=== PATIENT | male | born 1970 | race Caucasian/White ===

== ENCOUNTER 2016-07-31 17:06 | Emergency (ER) | payer BC, MEDICAID ==
[~2016-07-31] VITALS: Ht 167.6 cm; Wt 81.6 kg
[~2016-07-31 17:06] MED LIST: ACET-868 PO; ASCO500T8 PO; ASPI81TA2 PO; ATOR20TA PO; BISA10SU8 RC; CALC-108 PO; CHOL10002 PO; CLON0.3T PO; DOCU-25 PO; ESOM40CA PO; FERR1TAB44 PO; GABA-532 PO; HYDR-4077 PO; HYDR2TAB7 PO; IPRA3AMP IH; LABE200T PO; LEVE750T4 PO; LORA1TAB PO; MAG30ORA PO; MAGN400O4 PO; METH10TA2 PO; NITR0.4T SL; ONDA-25 PO; PHEN125O8 PO; THIA100T13 PO
[2016-07-31 17:30] LABS: BASOPHILS # (AUTO) 0.1 /CMM (0.0-0.2); BASOPHILS % (AUTO) 0.7 % (0.0-2.0); DIFF TOTAL % 100 %; EOSINOPHILS # (AUTO) 0.3 /CMM (0.0-0.7); EOSINOPHILS % (AUTO) 3.8 % (0.0-6.0); HEMATOCRIT 32 % (39-51); HEMOGLOBIN 10.6 g/dL (13.5-17.5); LYMPHOCYTES # (AUTO) 0.9 /CMM (0.8-4.8); LYMPHOCYTES % (AUTO) 10.6 % (20.0-44.0); MEAN CORPUSCULAR HEMOGLOBIN 32 PG (26.0-33.0); MEAN CORPUSCULAR HGB CONC 33 g/dl (31.0-36.0); MEAN CORPUSCULAR VOLUME 95 fL (80-96); MONOCYTES # (AUTO) 0.6 /CMM (0.1-1.30); MONOCYTES % (AUTO) 6.5 % (2.0-12.0); NEUTROPHILS % (AUTO) 78.4 % (43.0-81.0); PLATELET COUNT (AUTO) 193 /CMM (150-450); RED BLOOD CELL COUNT(AUTO) 3.36 MIL/uL (4.5-6.0); WHITE BLOOD COUNT (AUTO) 8.9 K/uL (4.3-11.0)
[2016-07-31] MEDS ORDERED: DILTIAZEM HCL 50 MG IV IV ONE ×2 (17:30→18:30)
[2016-07-31] MEDS ORDERED: NITROGLYCERIN 0.4 MG/TAB BOTTLE SL ONE (17:30)
[2016-07-31] MEDS ORDERED: ASPIRIN 81 MG TAB.CHEW PO ONE (17:30)
[2016-07-31] MEDS ORDERED: ONDANSETRON HCL/PF 4 MG/2 ML VIAL IVP ONE (17:30)
[2016-07-31] MEDS ORDERED: MORPHINE SULFATE INJ 2 MG/ML DISP.SYRIN IV ONE (17:30)
[2016-07-31] MEDS ORDERED: DILTIAZEM HCL 25 MG IV ONE ×2 (17:33→18:19)
[2016-07-31] MEDS ORDERED: NITROGLYCERIN 0.4 MG/TAB BOTTLE ONE (17:33)
[2016-07-31] MEDS ORDERED: ASPIRIN 81 MG TAB.CHEW ONE (17:33)
[2016-07-31] MEDS ORDERED: ONDANSETRON HCL/PF 4 MG/2 ML VIAL ONE (17:37)
[2016-07-31 17:41] LABS: CALCIUM, SERUM 8.2 mg/dL (8.5-10.1); CREATININE 4.6 mg/dL (0.6-1.3); POTASSIUM 4.3 mmol/L (3.5-5.1)
[2016-07-31 17:45] LABS: INR 0.97 (0.87-1.13); PROTHROMBIN TIME 10.2 SECS (9.5-12.7)
[2016-07-31 17:49] LABS: TROPONIN I 0.046 ng/mL (0.00-0.056)
[2016-07-31] MEDS ORDERED: HYDROMORPHONE 1 MG/1 ML DISP.SYRIN IV ONE (18:00)
[2016-07-31] MEDS ORDERED: IV SET PRIMARY 1 EA INFUS.SET MC ONE (18:03)
[2016-07-31] MEDS ORDERED: HYDROMORPHONE 1 MG/1 ML DISP.SYRIN ONE (18:03)
[2016-07-31] MEDS ORDERED: IV NS 0.9% 100 ML IV ONE (18:03)
[2016-07-31] MEDS ORDERED: DILTIAZEM HCL IV 125 MG in IV D5W 100 ML IV ONE (18:30)
[2016-07-31 19:21] VITALS: BP 136/84
== END 2016-07-31 19:22 | disposition left against medical advice (07) ==
LOC: ER 17:07
DX: I48.91 Unspecified atrial fibrillation (principal); R07.9 Chest pain, unspecified; I12.0 Hypertensive chronic kidney disease with stage 5 chronic kidney disease or end stage renal disease; N18.6 End stage renal disease; Z88.6 Allergy status to analgesic agent; Z99.2 Dependence on renal dialysis
CPT/HCPCS: 36415; 71010; 73030; 80048; 84484; 85025; 85730; 87081; 93005; 96374 ×2; 96375; 99285; A4606; J1170; J2405; J3490 ×2; J7030; Z7610

== ENCOUNTER 2016-09-02 08:40 | Emergency (ER) | payer BC, MEDICAID ==
[~2016-09-02] VITALS: Ht 165.1 cm; Wt 83.9 kg
[2016-09-02 09:06] LABS: BASOPHILS % (AUTO) 0.4 % (0.0-2.0); DIFF TOTAL % 100 %; EOSINOPHILS % (AUTO) 0.6 % (0.0-6.0); HEMATOCRIT 28 % (39-51); HEMOGLOBIN 9.3 g/dL (13.5-17.5); LYMPHOCYTES # (AUTO) 0.6 /CMM (0.8-4.8); LYMPHOCYTES % (AUTO) 9.8 % (20.0-44.0); MEAN CORPUSCULAR HEMOGLOBIN 31 PG (26.0-33.0); MEAN CORPUSCULAR HGB CONC 33 g/dl (31.0-36.0); MEAN CORPUSCULAR VOLUME 92 fL (80-96); MONOCYTES # (AUTO) 0.2 /CMM (0.1-1.30); MONOCYTES % (AUTO) 3.5 % (2.0-12.0); NEUTROPHILS # (AUTO) 5.6 /CMM (1.8-8.9); NEUTROPHILS % (AUTO) 85.7 % (43.0-81.0); PLATELET COUNT (AUTO) 181 /CMM (150-450); RED BLOOD CELL COUNT(AUTO) 3.02 MIL/uL (4.5-6.0); WHITE BLOOD COUNT (AUTO) 6.5 K/uL (4.3-11.0)
[2016-09-02 09:21] LABS: ALANINE AMINOTRANSFERASE 30 U/L (12-78); ALBUMIN 3.7 g/dL (3.4-5.0); ANION GAP 22 (5-14); ASPARTATE AMINOTRANSFERASE 7 U/L (15-37); BILIRUBIN,DIRECT 0.1 mg/dL (0.0-0.2); BILIRUBIN,TOTAL 0.3 mg/dL (0.2-1.0); CALCIUM, SERUM 8.6 mg/dL (8.5-10.1); CARBON DIOXIDE 20 mmol/L (21-32); CHLORIDE 98 mmol/L (98-107); GFR 5 mL/min (>60); GLUCOSE 160 mg/dL (74-106); INDIRECT BILIRUBIN 0.2 mg/dL (0.0-1.1); POTASSIUM 4.9 mmol/L (3.5-5.1); SODIUM SERUM 135 mmol/L (136-145); TOTAL PROTEIN, SERUM 7.8 g/dL (6.4-8.2)
[2016-09-02 09:23] LABS: CREATININE 11.7 mg/dL (0.6-1.3); UREA NITROGEN, BLOOD 110 mg/dL (7-18)
[2016-09-02 09:24] LABS: TROPONIN I < 0.017 ng/mL (0.00-0.056)
[2016-09-02 09:29] LABS: INR 0.98 (0.87-1.13); PROTHROMBIN TIME 10.6 SECS (9.5-12.7)
[2016-09-02] MEDS ORDERED: KETOROLAC TROMETHAMINE INJ 30 MG/ML VIAL IV ONE (10:30)
[2016-09-02 10:41] VITALS: BP 133/70
== END 2016-09-02 10:42 | disposition home or self-care (01) ==
LOC: ER 08:45
DX: S40.012A Contusion of left shoulder, initial encounter (principal); S09.90XA Unspecified injury of head, initial encounter; R07.9 Chest pain, unspecified; I12.0 Hypertensive chronic kidney disease with stage 5 chronic kidney disease or end stage renal disease; N18.6 End stage renal disease; Z88.6 Allergy status to analgesic agent; Z79.82 Long term (current) use of aspirin; W18.09XA Striking against other object with subsequent fall, initial encounter; Y93.89 Activity, other specified; Y92.89 Other specified places as the place of occurrence of the external cause; Y99.8 Other external cause status
CPT/HCPCS: 36415; 70450; 71010; 73030; 80048; 80076; 84484; 85025; 85730; 93005; 99285; A4606; Z7610

== ENCOUNTER 2016-09-04 03:22 | Inpatient (IN) | payer BC, MEDICAID ==
[~2016-09-04] VITALS: Ht 165.1 cm; Wt 102.1 kg
--- NOTE | 2016-09-04 03:29 | NUR ---
PT BIB RA WITH A C/O SOB AND LEFT SIDED RIB PAIN S/P FALL YESTERDAY. PT STATED THAT HE GOT UP TOO FAST AND FELL. PT IS AA&O X4. PT IS ON THE MONITOR AND CONTINOUS PULSE OX. PT IS A HD PT AND HAS NOT BE DIALYSIZED FOR 1 WK. PT STATED IT WAS BECAUSE THE FACILITY DID NOT HAVE THE RIGHT SUCTIONING MACHINE. PT HAS A FISTULA ON LUE. DR. VELIZ IS AT THE BEDSIDE. CRACKLES NOTED ON LEFT SIDE AND WHEEZES NOTED ON RT.
--- NOTE | 2016-09-04 03:30 | NUR ---
TRACH IS [facility] 6.0
--- NOTE | 2016-09-04 03:31 | NUR ---
SUCTIONING IN PROGRESS BY RT.
--- NOTE | 2016-09-04 03:35 | NUR ---
PT IS ON HD WED, WED, WEDNESDAY. PT HAS NOT HAD HD IN 1 WEEK.
--- NOTE | 2016-09-04 03:51 | NUR ---
PT HAS A FISTULA ON LUE. BRUIT AND TRILL PRESENT. PT HAS DENZEL CATH IN RU. IV ATTEMPT X2 DONE UNSUCCESSFULLY. SOUND EDITOR IS AT THE BEDSIDE. CXR IN PROGRESS AT THE BEDSIDE.
--- NOTE | 2016-09-04 04:15 | NUR ---
US GUIDED IV INSERTION BY ANGELICA DURÁN
[2016-09-04 04:26] LABS: BASOPHILS % (AUTO) 0.2 % (0.0-2.0); EOSINOPHILS # (AUTO) 0.2 /CMM (0.0-0.7); EOSINOPHILS % (AUTO) 1.8 % (0.0-6.0); HEMATOCRIT 32 % (39-51); HEMOGLOBIN 10.3 g/dL (13.5-17.5); LYMPHOCYTES # (AUTO) 1.1 /CMM (0.8-4.8); LYMPHOCYTES % (AUTO) 11.9 % (20.0-44.0); MEAN CORPUSCULAR HEMOGLOBIN 30 PG (26.0-33.0); MEAN CORPUSCULAR HGB CONC 33 g/dl (31.0-36.0); MEAN CORPUSCULAR VOLUME 92 fL (80-96); MONOCYTES # (AUTO) 0.6 /CMM (0.1-1.30); MONOCYTES % (AUTO) 6.9 % (2.0-12.0); NEUTROPHILS % (AUTO) 79.2 % (43.0-81.0); PLATELET COUNT (AUTO) 244 /CMM (150-450); RDW COEFFICIENT OF VARIATION 14.4 (11.5-15.0); RED BLOOD CELL COUNT(AUTO) 3.41 MIL/uL (4.5-6.0); WHITE BLOOD COUNT (AUTO) 8.9 K/uL (4.3-11.0)
[2016-09-04] MEDS ORDERED: MORPHINE SULFATE INJ 4 MG/ML DISP.SYRIN ONE (04:32)
[2016-09-04] MEDS ORDERED: ONDANSETRON HCL/PF 4 MG/2 ML VIAL ONE (04:33)
[2016-09-04] MEDS ORDERED: HYDROCODONE/APAP 5/325MG 1 EACH TABLET ONE (04:36)
[2016-09-04 04:45] LABS: TROPONIN I < 0.017 ng/mL (0.00-0.056)
[2016-09-04 04:49] LABS: LACTIC ACID 0.9 mmol/L (0.4-2.0)
[2016-09-04 04:52] LABS: ALANINE AMINOTRANSFERASE 31 U/L (12-78); ALBUMIN 3.9 g/dL (3.4-5.0); ALKALINE PHOSPHATASE 133 U/L (46-116); ASPARTATE AMINOTRANSFERASE 8 U/L (15-37); B-TYPE NATRIURETIC PEPTIDE 7573 PG/ML (0-125); BILIRUBIN,DIRECT 0.1 mg/dL (0.0-0.2); BILIRUBIN,TOTAL 0.3 mg/dL (0.2-1.0); CALCIUM, SERUM 8.2 mg/dL (8.5-10.1); CARBON DIOXIDE 20 mmol/L (21-32); CHLORIDE 92 mmol/L (98-107); GFR 4 mL/min (>60); GLUCOSE 112 mg/dL (74-106); SODIUM SERUM 128 mmol/L (136-145)
[2016-09-04 04:54] LABS: CREATININE 12.4 mg/dL (0.6-1.3); POTASSIUM 6.8 mmol/L (3.5-5.1); UREA NITROGEN, BLOOD 124 mg/dL (7-18)
[2016-09-04] MEDS ORDERED: PANT40TA4 PO (04:55)
[2016-09-04] MEDS ORDERED: PHEN50TA4 PO (04:55)
[2016-09-04] MEDS ORDERED: PHEN200C5 PO (04:55)
[2016-09-04] MEDS ORDERED: AMIO400T4 PO (04:55)
[2016-09-04] MEDS ORDERED: IPRA0.2S9 IH (04:55)
[2016-09-04] MEDS ORDERED: PHEN300C6 PO (04:55)
[2016-09-04] MEDS ORDERED: LIDO30AD10 TP (04:55)
[2016-09-04] MEDS ORDERED: RISP2TAB23 PO (04:55)
[2016-09-04] MEDS ORDERED: FOLI1TAB16 PO (04:55)
[2016-09-04] MEDS ORDERED: FLUT1DIS3 IH (04:55)
[2016-09-04] MEDS ORDERED: METO25TA6 PO (04:55)
[2016-09-04] MEDS ORDERED: AMLO5TAB4 PO (04:55)
[2016-09-04] MEDS ORDERED: PRED20TA PO (04:55)
[2016-09-04] MEDS ORDERED: SODIUM BICARBONATE SYR 50 MEQ/50 ML DISP.SYRIN ONE (04:56)
[2016-09-04] MEDS ORDERED: CALCIUM CHLORIDE 1,000 MG/10 ML DISP.SYRIN ONE (04:56)
[2016-09-04] MEDS ORDERED: ALBUTEROL FS 2.5 MG/3 ML VIAL.NEB NEB ONE (05:00)
[2016-09-04] MEDS ORDERED: HYDROCODONE/APAP 5/325MG 1 EACH TABLET PO ONE (05:00)
[2016-09-04] MEDS ORDERED: CALCIUM CHLORIDE 1,000 MG/10 ML DISP.SYRIN IV ONE (05:00)
[2016-09-04] MEDS ORDERED: INSULIN REGULAR, HUMAN 100 UNIT/ML 10 ML VIAL IV ONE (05:00)
[2016-09-04] MEDS ORDERED: DEXTROSE 50%-WATER 50 ML DISP.SYRIN IV ONE (05:00)
[2016-09-04] MEDS ORDERED: SODIUM BICARBONATE SYR 50 MEQ/50 ML DISP.SYRIN IV ONE (05:00)
[2016-09-04] MEDS ORDERED: DEXTROSE 50%-WATER 50 ML DISP.SYRIN ONE (05:07)
[2016-09-04] MEDS ORDERED: INSULIN REGULAR, HUMAN 100 UNIT/ML 10 ML VIAL ONE (05:08)
[2016-09-04] MEDS ORDERED: ALBUTEROL FS 2.5 MG/3 ML VIAL.NEB ONE (05:10)
--- NOTE | 2016-09-04 05:12 | NUR ---
WITNESSED LEEANNA SANCHES RN ADMINISTER 5 UNITS OF REGULAR INSULIN
[2016-09-04 05:16] LABS: APPEARANCE,URINE CLEAR (CLEAR); BILIRUBIN,URINE NEGATIVE (NEGATIVE); BLOOD, URINE NEGATIVE Ery/uL (NEGATIVE); COLOR,URINE YELLOW (YELLOW); KETONES,URINE NEGATIVE (NEGATIVE); LEUKOCYTE ESTERASE ,URINE NEGATIVE (NEGATIVE); NITRITE, URINE NEGATIVE (NEGATIVE); PH,URINE 5.5 (5.0-8.0); PROTEIN,URINE 1+ mg/dl (NEGATIVE); UGLUCOSE NEGATIVE (NEGATIVE); UROBILINOGEN,URINE 0.2 EU/dL (0.2)
[2016-09-04 05:24] LABS: ADD URINE CULTURE NO; BACTERIA,URINE None seen /HPF (None Seen); RBC,URINE 0-2 /HPF (0-2); SQUAMOUS EPITHELIAL CELL,UR Few /HPF (None Seen); WBC,URINE 0-2 /HPF (0-3)
--- NOTE | 2016-09-04 05:50 | NUR ---
PT DISCONNECTED HIMSELF FROM THE MONITOR AND WALKED INTO THE HALLWAY. PT'S CALL LIGHT WAS ON THE FLOOR. PT STATED: "I HAVE TO PEE". PT WANTS A URINAL. PT REC'D A URINAL AND HAD APPROX 200 ML YELLOW URINE. PT WAS RECONNTECTED TO THE MONITOR AND CONTINUOUS PULSE OX. PT WAS PLACED BACK ON 5L O2 VIA TRACH MASK AND REC'D WARM BLANKETS X2. SR UP X2 PRECAUTION.
[2016-09-04] MEDS ORDERED: LORAZEPAM 1 MG TABLET PO PRN (06:00)
[2016-09-04] MEDS ORDERED: Z GUARD REMEDY 2 OZ OINT TP PRN (06:00)
[2016-09-04] MEDS ORDERED: MAGNESIUM HYDROXIDE 30 ML UDC PO PRN ×2 (06:00)
[2016-09-04] MEDS ORDERED: ONDANSETRON HCL/PF 4 MG/2 ML VIAL IVP PRN (06:00)
[2016-09-04] MEDS ORDERED: NITROGLYCERIN 0.4 MG/TAB BOTTLE SL PRN (06:00)
[2016-09-04] MEDS ORDERED: HYDROCODONE/APAP 5/325MG 1 EACH TABLET PO PRN (06:00)
[2016-09-04] MEDS ORDERED: ACETAMINOPHEN 325 MG TABLET PO PRN ×2 (06:00)
[2016-09-04] MEDS ORDERED: Medication Not On Formulary EA (Ipratropium/Albuterol Sulfate (Duoneb 2.5-0.5 Mg/3 Ml So IH PRN (06:00)
[2016-09-04] MEDS ORDERED: BISACODYL SUPP (10 MG) 10 MG/SUPP.RECT SUPP.RECT RC PRN (06:00)
[2016-09-04] MEDS ORDERED: ZOLPIDEM TARTRATE 5 MG TABLET PO PRN (06:00)
[2016-09-04] MEDS ORDERED: MAG HYDROX/AL HYDROX/SIMETH 30 ML UDC PO PRN ×2 (06:00)
[2016-09-04 06:01] LABS: PROTHROMBIN TIME 10.7 SECS (9.5-12.7)
[2016-09-04] MEDS ORDERED: LEVE500T9 PO (06:05)
[2016-09-04] MEDS ORDERED: CALC668T PO (06:05)
--- NOTE | 2016-09-04 06:26 | NUR ---
PT APPEARS TO BE RESTING COMFORTABLY WITH NO S/S OF PAIN OR DISTRESS.
--- NOTE | 2016-09-04 06:30 | NUR ---
Ariana roach in ED - 09/04/[address] INGRAM IS AT THE BEDSIDE SPEAKING TO THE PT AND HER .
--- NOTE | 2016-09-04 07:22 | NUR ---
Patient discharged to home in stable condition. Written and verbal after care instructions given. Patient verbalizes understanding of instruction.IV removed. Catheter intact and site benign. Pressure and 4x4 applied to site. No bleeding noted. PT REC'D A COPY OF LABS AND CT FINDINGS. PT AMBULATED OUT WITH A STEADY GAIT. VSS
--- NOTE | 2016-09-04 07:30 | NUR ---
BED CALL PT GOING TO 320-1 TELEMETRY
--- NOTE | 2016-09-04 08:15 | NUR ---
GAVE REPORT TO ALESSIA DOMINGUEZMIXING HOUSE OPERATOR
--- NOTE | 2016-09-04 08:48 | NUR ---
PT TRANSFER VIA GURNEY VIA ACLS PROTOCOL WITH RT FOR TRACH MANAGEMENT. TRANSFER IN STABLE CONDITION TO ROOM 320-1
[2016-09-04] MEDS ORDERED: ASCORBIC ACID 500 MG TABLET PO SCH (09:00)
[2016-09-04] MEDS ORDERED: Medication Not On Formulary EA (Esomeprazole Mag Trihydrate (Nexium) 40 MG) PO SCH (09:00)
[2016-09-04] MEDS ORDERED: THIAMINE HCL 100 MG TABLET PO SCH (09:00)
[2016-09-04] MEDS ORDERED: AMIODARONE HCL 200 MG TABLET PO SCH (09:00)
[2016-09-04] MEDS ORDERED: CHOLECALCIFEROL 1,000 UNIT TABLET (VIT D3) PO SCH (09:00)
[2016-09-04] MEDS ORDERED: FLUTICASONE/SALMETEROL DISKUS IH SCH (09:00)
[2016-09-04] MEDS ORDERED: CALCIUM CARB 600MG /VIT D 1 EACH TABLET PO SCH (09:00)
[2016-09-04] MEDS ORDERED: risperiDONE 1 MG TABLET PO SCH (09:00)
[2016-09-04] MEDS ORDERED: ASPIRIN 81 MG TAB.CHEW PO SCH (09:00)
[2016-09-04] MEDS ORDERED: CALCIUM CARB 250MG /VITAMIN D 1 UDTAB PO SCH (09:00)
[2016-09-04] MEDS ORDERED: LIDOCAINE 5% (PATCH) 1 EA PATCH TP SCH (09:00)
[2016-09-04] MEDS ORDERED: CLONIDINE HCL 0.1 MG TABLET PO SCH (09:00)
[2016-09-04] MEDS ORDERED: PHENYTOIN 50 MG PO SCH (09:00)
[2016-09-04] MEDS ORDERED: PANTOPRAZOLE 40 MG TABLET.DR PO SCH (09:00)
[2016-09-04] MEDS ORDERED: LABETALOL HCL 200 MG TABLET PO SCH (09:00)
[2016-09-04] MEDS ORDERED: METHADONE HCL 10 MG TABLET PO SCH (09:00)
[2016-09-04] MEDS ORDERED: predniSONE 20 MG TABLET PO SCH (09:00)
[2016-09-04] MEDS ORDERED: ONDANSETRON 4 MG TAB.RAPDIS PO PRN (09:00)
[2016-09-04] MEDS ORDERED: PHENYTOIN SODIUM 200 MG PO SCH (09:00)
[2016-09-04] MEDS ORDERED: FOLIC ACID 1 MG TABLET PO SCH (09:00)
--- NOTE | 2016-09-04 09:00 | NUR ---
INTENSIVE CARE SPECIALIST NOTES ADMITTED THIS PATIENT FOR SOB, BY DR. LIAO, AAO X3, ON TRACH SHILEY #6 ON 5L O2 COOL AIR, NAD, NO SOB, RESPIRATION UNLABORED, C/O OF LEFT HIP AND RIB PAIN 8/10, WILL ADMINISTER PAIN MEDS ORDERED, TELEMETRY READS SR WITH BBB HR 61, AVF ON ALBINO THRILL PRESENT, DENZEL CATH ON RT UPPER CWM CDI DRESSING, FERNANDO G20 IVHL , FLUSHES WELL SITE CLEAR. REFUSE BODY CHECK, ON RENAL DIET, AMBULATES, UNIT ORIENTATION DONE AND USE OF CALL LIGHT. SAFETY MEASURES IN PLACE, BED ALARM ON, WILL CONT TO MONITOR.
[2016-09-04] MEDS: FERROUS SULFATE (325 MG) 325 MG/TAB TABLET PO SCH ×2 (09:22→17:06)
[2016-09-04] MEDS: DOCUSATE SODIUM 100 MG CAPSULE PO SCH ×2 (09:22→17:05)
[2016-09-04] MEDS: GABAPENTIN 100 MG CAPSULE PO SCH ×3 (09:23→17:06)
[2016-09-04] MEDS: METOPROLOL TARTRATE 25 MG TABLET PO SCH ×3 (09:28→17:06)
[2016-09-04] MEDS: AMLODIPINE BESYLATE 5 MG TABLET PO SCH ×2 (09:28→17:06)
[2016-09-04] MEDS: hydrALAZINE HCL 50 MG TABLET PO SCH ×3 (09:29→17:06)
[2016-09-04] MEDS: HYDROMORPHONE HCL 2 MG TABLET PO PRN ×2 (09:30→17:11)
--- NOTE | 2016-09-04 10:10 | NUR ---
RN NOTES PATIENT KEEPS ON REMOVING HIS INNER CANULA BUT ABLE TO PUT IT BACK BY HIMSELF. RESPIRATORY THERAPIST AWARE.
[2016-09-04 11:10] VITALS: BP 143/90
[2016-09-04] MEDS: IPRATROPIUM NEB FS 0.5 MG/2.5 ML AMPUL.NEB IH SCH ×2 (11:30→15:40)
[2016-09-04] MEDS: ALBUTEROL FS 2.5 MG/3 ML VIAL.NEB NEB SCH ×2 (11:30→15:40)
--- NOTE | 2016-09-04 11:30 | NUR ---
RT TX NOT GIVEN AT 1130. RT UNAWARE OF ORDERED BREATHING TX'S. RN NOTIFIED AND AWARE.
[2016-09-04] MEDS ORDERED: diphenhydrAMINE HCL 25 MG CAPSULE PO PRN (12:00)
--- NOTE | 2016-09-04 12:14 | NUR ---
RN NOTES DR. MARILOU OSORIO AND DR. Roselyn WEISS AWARE, PER R.T., HAS RESISTANCE TO TRACH EVERY SUCTIONING AND MIGHT REQUIRE TRACH CHANGE. FOR HD TODAY. PER MD, PATIENT CAN GO BACK TO SNF POST HD.
--- NOTE | 2016-09-04 12:32 | NUR ---
RN NOTES HD STARTED AT 1200, NO BP MED GIVEN
[2016-09-04] MEDS ORDERED: ALBUTEROL HALF STRENGTH 1.25 MG/3 ML VIAL.NEB NEB PRN (13:30)
[2016-09-04] MEDS ORDERED: IPRATROPIUM NEB FS 0.5 MG/2.5 ML AMPUL.NEB NEB PRN (13:30)
[2016-09-04] MEDS ORDERED: HYDROMORPHONE 1 MG/1 ML DISP.SYRIN IV PRN (14:00)
--- NOTE | 2016-09-04 14:42 | NUR ---
RN NOTES REPORT GIVEN TO MICHELLE AT HEART TO HEART [facility]. AMBULANCE RASPBERRY CHECKER TIME 1600.
--- NOTE | 2016-09-04 15:00 | NUR ---
RN NOTES HD COMPLETED WITH 3000 ML OUT.
[2016-09-04 16:00] VITALS: BP 123/81
--- NOTE | 2016-09-04 16:30 | NUR ---
RT PT IS AWAKE, ALERT AND VERBALLY RESPONSIVE. TRACH CHANGED TO SHILEY #6 UNCUFFED. MD AWARE. RN NOTIFIED AND AWARE. 2 RTS AT BEDSIDE. NO RESPIRATORY COMPLICATIONS NOTED. SpO2 97%, HR 86, RR 18. TRACH SECURED AND AIRWAY PATENT. AMBU BAG AT BEDSIDE. NO SOB OR SIGNS OF DISTRESS OBSERVED. WILL CONTINUE TO MONITOR THE PATIENT FOR ANY CHANGE OF CONDITION.
[2016-09-04 18:05] VITALS: BP 123/81
--- NOTE | 2016-09-04 18:08 | NUR ---
SUPERVISOR CALIBRATION NOTES PATIENT DISCHARGED TO HEART TO HEART [facility] FAC[facility] PER MD IN STABLE CONDITION. PROVIDED DC INSTRUCTIONS, MED RECON LIST AND HEALTH TEACHINGS. TO FOLLOW UP WITH PMD PER FACILITY PROTOCOL. FERNANDO IVHL REMOVED, NO BLEEDING, DRESSING IN PLACE. ALL BELONGINGS CHECKED AND RETURNED, ALL PAPER WORKS SIGNED. PATIENT PICKED UP BY 3 AMBULANCE PERSONNEL TO TRANSPORT PATIENT TO FACILITY.
[2016-09-04] MEDS ORDERED: LEVETIRACETAM (250 MG) 250 MG TABLET PO SCH (22:00)
[2016-09-04] MEDS ORDERED: PHENYTOIN SODIUM 600 MG PO SCH (22:00)
[2016-09-04] MEDS ORDERED: ATORVASTATIN 10 MG TABLET PO SCH (22:00)
[2016-09-04] MEDS ORDERED: PHENYTOIN PO SCH (22:00)
== END 2016-09-04 18:24 | DRG 640 ==
LOC: ER 03:25 → TELE 08:16
PROVIDERS: ADMIT Family Medicine; ATTEND Nurse Practitioner Acute Care
PROC: 5A1D00Z (ICD-10-PCS; principal; 2016-09-04)
DX: E87.5 Hyperkalemia (principal); N18.6 End stage renal disease; J96.11 Chronic respiratory failure with hypoxia; I69.354 Hemiplegia and hemiparesis following cerebral infarction affecting left non-dominant side; I13.2 Hypertensive heart and chronic kidney disease with heart failure and with stage 5 chronic kidney disease, or end stage renal disease; E66.01 Morbid (severe) obesity due to excess calories; G89.29 Other chronic pain; I48.91 Unspecified atrial fibrillation; F17.210 Nicotine dependence, cigarettes, uncomplicated; I50.9 Heart failure, unspecified; Z93.0 Tracheostomy status; Z99.2 Dependence on renal dialysis; G47.33 Obstructive sleep apnea (adult) (pediatric); F11.90 Opioid use, unspecified, uncomplicated; G40.909 Epilepsy, unspecified, not intractable, without status epilepticus; J44.9 Chronic obstructive pulmonary disease, unspecified
CPT/HCPCS: 31720; 36415; 71010-TC; 71100-TC; 80048-TC; 80076-TC; 80185-TC; 81000-TC; 83605-TC; 83880; 84484-TC; 85025-TC; 85730-TC; 87040-TC; 87081-TC; 94799-TC; A4606; A4623; A7526; J1815; J2270; J2405; J3490; Q0163; Z7610

== ENCOUNTER 2016-09-15 15:11 | Inpatient (IN) | payer BC, MEDICAID ==
[~2016-09-15] VITALS: Ht 167.6 cm; Wt 93.0 kg
[~2016-09-15 15:11] MED LIST changes: +AMIO400T4 PO; +AMLO5TAB4 PO; +CALC668T PO; +FLUT1DIS3 IH; +FOLI1TAB16 PO; +IPRA0.2S9 IH; +LEVE500T9 PO; +LIDO30AD10 TP; +METO25TA6 PO; +PANT40TA4 PO; +PHEN200C5 PO; +PHEN300C6 PO; +PHEN50TA4 PO; +PRED20TA PO; +RISP2TAB23 PO
[2016-09-15 16:46] LABS: INR 1.06 (0.87-1.13)
[2016-09-15 16:50] LABS: BASOPHILS # (AUTO) 0.1 /CMM (0.0-0.2); BASOPHILS % (AUTO) 0.6 % (0.0-2.0); EOSINOPHILS # (AUTO) 0.6 /CMM (0.0-0.7); EOSINOPHILS % (AUTO) 5.9 % (0.0-6.0); HEMATOCRIT 29 % (39-51); HEMOGLOBIN 9.4 g/dL (13.5-17.5); LYMPHOCYTES # (AUTO) 1.7 /CMM (0.8-4.8); LYMPHOCYTES % (AUTO) 16.4 % (20.0-44.0); MEAN CORPUSCULAR HEMOGLOBIN 31 PG (26.0-33.0); MEAN CORPUSCULAR HGB CONC 33 g/dl (31.0-36.0); MEAN CORPUSCULAR VOLUME 94 fL (80-96); MONOCYTES # (AUTO) 0.7 /CMM (0.1-1.30); MONOCYTES % (AUTO) 6.2 % (2.0-12.0); NEUTROPHILS # (AUTO) 7.5 /CMM (1.8-8.9); NEUTROPHILS % (AUTO) 70.9 % (43.0-81.0); PLATELET COUNT (AUTO) 167 /CMM (150-450); RDW COEFFICIENT OF VARIATION 15.3 (11.5-15.0); RED BLOOD CELL COUNT(AUTO) 3.06 MIL/uL (4.5-6.0); TROPONIN I 0.036 ng/mL (0.00-0.056); WHITE BLOOD COUNT (AUTO) 10.6 K/uL (4.3-11.0)
[2016-09-15 16:55] LABS: ALBUMIN 3.9 g/dL (3.4-5.0); BILIRUBIN,DIRECT 0.1 mg/dL (0.0-0.2); BILIRUBIN,TOTAL 0.4 mg/dL (0.2-1.0); CALCIUM, SERUM 9.1 mg/dL (8.5-10.1); TOTAL PROTEIN, SERUM 7.6 g/dL (6.4-8.2)
[2016-09-15 16:56] LABS: ABG BASE EXCESS -7.6 mmol/L; ABG OXYGEN SATURATION 93.6 % (92.0-98.5); ABG PH 7.314 (7.350-7.450); ABG PO2 81.7 mmHg (75.0-100.0); ABG TOTAL HEMOGLOBIN 10.1 G/dL (13.5-18.0); AaDO2 162.1 mmHg; COHb 0.6 % (0.5-1.5); MetHb 0.2 % (0.0-1.5); O2Hb 92.9 % (94.0-97.0); SITE, ABG Right Radial; VENT MODE, BG TRACH MASK
[2016-09-15 16:58] LABS: POTASSIUM 6.4 mmol/L (3.5-5.1)
[2016-09-15 16:59] LABS: CREATININE 10.6 mg/dL (0.6-1.3)
--- NOTE | 2016-09-15 17:02 | NUR ---
PT FROM [facility] TO [facility] [phone]
[2016-09-15 17:05] LABS: LACTIC ACID 0.9 mmol/L (0.4-2.0)
[2016-09-15] MEDS ORDERED: IPRA0.2S49 NEB (17:27)
[2016-09-15] MEDS ORDERED: HYDR-4076 PO (17:27)
[2016-09-15] MEDS ORDERED: CALC667C6 PO (17:27)
[2016-09-15] MEDS ORDERED: HYDR-552 PO (17:27)
[2016-09-15] MEDS ORDERED: ZOLP5TAB7 PO (17:27)
[2016-09-15] MEDS ORDERED: TRAM50TA2 PO (17:27)
[2016-09-15] MEDS ORDERED: SENN8.6T6 PO (17:27)
[2016-09-15] MEDS ORDERED: ACID1TAB4 PO (17:27)
[2016-09-15] MEDS ORDERED: ALBU2.5V38 NEB (17:27)
[2016-09-15] MEDS ORDERED: FUROSEMIDE 40 MG/4 ML VIAL IV ONE (17:30)
[2016-09-15] MEDS ORDERED: NITROGLYCERIN PACKET 1 GM PACKET ONE (17:35)
[2016-09-15] MEDS ORDERED: ALBUTEROL FS 2.5 MG/3 ML VIAL.NEB ONE (17:38)
--- NOTE | 2016-09-15 17:57 | NUR ---
PTS PRIMARY IS DR HOUSE
[2016-09-15] MEDS ORDERED: NITROGLYCERIN PACKET 1 GM PACKET TD ONE (18:00)
[2016-09-15] MEDS ORDERED: ALBUTEROL FS 2.5 MG/3 ML VIAL.NEB CONTNEB ONE (18:00)
[2016-09-15] MEDS ORDERED: FUROSEMIDE 40 MG/4 ML VIAL ONE (18:02)
--- NOTE | 2016-09-15 18:49 | NUR ---
CALLED NURSING SUP. FOR DENI BED
--- NOTE | 2016-09-15 19:02 | NUR ---
PAGED SHELF STOCKER FOR [facility] DR TALON BRYANT
[2016-09-15] MEDS ORDERED: HYDROMORPHONE 1 MG/1 ML DISP.SYRIN ONE (19:04)
[2016-09-15] MEDS ORDERED: HYDROMORPHONE 1 MG/1 ML DISP.SYRIN IV ONE (19:30)
[2016-09-15] MEDS ORDERED: ZOLPIDEM TARTRATE 5 MG TABLET PO PRN (19:30)
[2016-09-15] MEDS ORDERED: ACETAMINOPHEN 325 MG TABLET PO PRN (19:30)
[2016-09-15] MEDS ORDERED: MAG HYDROX/AL HYDROX/SIMETH 30 ML UDC PO PRN (19:30)
[2016-09-15] MEDS ORDERED: ONDANSETRON HCL/PF 4 MG/2 ML VIAL IVP PRN (19:30)
[2016-09-15] MEDS ORDERED: MAGNESIUM HYDROXIDE 30 ML UDC PO PRN (19:30)
--- NOTE | 2016-09-15 19:42 | NUR ---
INFORMED NURSING BED WILL BE TELE INSTEAD OF DENI
[2016-09-15 20:05] VITALS: BP 140/93
[2016-09-15] MEDS ORDERED: SODIUM POLYSTYRENE SULFONATE 15 G/60 ML BOTTLE PO ONE (20:30)
[2016-09-15] MEDS ORDERED: TRAMADOL HCL 50 MG TABLET PO PRN (20:30)
[2016-09-15] MEDS ORDERED: LORAZEPAM 1 MG TABLET PO PRN (20:30)
[2016-09-15] MEDS ORDERED: IPRATROPIUM NEB FS 0.5 MG/2.5 ML AMPUL.NEB NEB PRN (20:30)
[2016-09-15] MEDS ORDERED: CHOLECALCIFEROL 1,000 UNIT TABLET (VIT D3) PO SCH (21:00)
[2016-09-15] MEDS ORDERED: ACIDOPHILUS/BULGARICUS 1 EACH TAB.CHEW PO SCH (21:00)
--- NOTE | 2016-09-15 21:09 | NUR ---
MEDICAL OFFICE SUPERVISOR NOTE ADMITTED 46 YEARS OLD MALE PT FROM ER WITH THE DX OF ACUTE RESP FAILURE, ESRD BY DR BRYANT. PT IS WITH SOB AND ON O2 15 L VIA MASK ON TRACH. O2 SAT 98%. KEPT HOB ELEVATED. H/L IN RT INDEX FINGER #24 G INTACT AND PATENT. DENZEL CATH ON RCW INTACT. ALSO OLD AV SHUNT IN ALBINO. SKIN ASSESSMENT DONE, PICTURES TAKEN AND PLACE THEM IN THE CHART. ORIENTED THE PT TO HIS ROOM. ON TELE SR WITH 1ST DEGREE AV BLOCK, BBB, T WAVE ELEVATED HR 70. BED BATH GIVEN TO THE PT. ALL NEEDS ATTENDED. SIDE RAILS UP X 3 AND CALL LIGHT WITHIN REACH. BED ALARM ON. VSS. CONTINUE TO MONITOR HIM.
[2016-09-15] MEDS: FLUTICASONE/SALMETEROL DISKUS IH SCH (21:24)
[2016-09-15] MEDS: hydrALAZINE HCL 25 MG TABLET PO SCH (21:24)
[2016-09-15] MEDS ORDERED: CALCIUM ACETATE 667 MG TABLET PO SCH (21:30)
--- NOTE | 2016-09-15 21:30 | NUR ---
ELDER ASSISTANT NOTE PT IS CONFUSED KEPT ON GETTING OUT OF BED. KEPT BED ALARM ON.
[2016-09-15] MEDS ORDERED: SENNOSIDES 8.6 MG TABLET PO SCH (22:00)
[2016-09-15] MEDS ORDERED: LEVETIRACETAM (250 MG) 250 MG TABLET PO SCH (22:00)
[2016-09-15] MEDS ORDERED: PHENYTOIN EXTENDED RELEASE 100 MG CAPSULE PO SCH (22:00)
[2016-09-16] VITALS: BP 157/68
--- NOTE | 2016-09-16 00:20 | NUR ---
RN NOTES PATIENT NOTED WITH PERIODS OF DISORIENTATION, ATTEMPTING MULTIPLE TIMES TO GET OUT OF BED. BED ALARM INEFFECTIVE, PATIENT REMAINS HIGH FALL RISK. DR BRYANT NOTIFIED, WITH ORDER FOR 1:1 SITTER. BUSH HOG OPERATOR GUMARO NOTIFIED REGARDING 1:1 SITTER ORDER. WILL CONTINUE TO CLOSELY MONITOR THE PATIENT AND MAINTAIN SAFETY
[2016-09-16] MEDS: HYDROCODONE/APAP 5/325MG 1 EACH TABLET PO PRN (00:46)
--- NOTE | 2016-09-16 00:50 | NUR ---
TIN TIE MACHINE OPERATOR AUTOMATIC NOTE PT KEPT ON TRYING TO GET OUT OF BED, UNABLE TO FOLLOW SAFETY DIRECTION, BECOME VERY ANXIOUS AND AGITATED. ALSO C/O PAIN IN BILATERAL KNEES. NORCO 1 TAB PO GIVEN FOR PAIN 610 AND ATIVAN 1 MG PO GIVEN FOR ANXIETY. CONTINUE TO MONITOR HIM.
[2016-09-16] MEDS: ALBUTEROL FS 2.5 MG/3 ML VIAL.NEB NEB SCH ×4 (01:02→19:44)
[2016-09-16] MEDS: IPRATROPIUM NEB FS 0.5 MG/2.5 ML AMPUL.NEB NEB SCH ×4 (01:02→19:44)
--- NOTE | 2016-09-16 01:05 | NUR ---
SCHOOL OCCUPATIONAL THERAPIST NOTE MATT CHAMPAGNE CAME TO BE SITTER.
[2016-09-16] MEDS ORDERED: ALBUTEROL FS 2.5 MG/3 ML VIAL.NEB NEB PRN (01:30)
[2016-09-16 04:00] VITALS: BP 151/74
[2016-09-16] MEDS: hydrALAZINE HCL 25 MG TABLET PO SCH (05:18)
--- NOTE | 2016-09-16 06:40 | NUR ---
CRYPTOLOGIC TECHNICIAN TECHNICAL NOTE PT IN BED AWAKE. NO DISTRESS OR DISCOMFORT NOTED. DENIES PAIN. IVF INFUSING WELL, ON TELE SR WITH 1 ST DEGREE AV BLOCK, BBB, TWAVE ELEVATED HR 80. SITTER AT BED SIDE. MDLINE FERNANDO #18 G AND H/L RT INDEX FINGER #24 G INTACT AND PATENT. SIDE RAILS UP X 2 AND CALL LIGHT WITHIN REACH. WILL ENDORSE TO DAY SHIFT NURSE FOR CONTINUE TO CARE.
--- NOTE | 2016-09-16 06:50 | NUR ---
RESEARCH DEVELOPMENT MANAGER NOTE PT GRABBED THE TRACH COLLAR AND ALMOST PULLED THE CUFFLES TRACH SHIELY #6 OUT. SITTER JUMPED TO HOLD HIS HAND. WENT TO ASSIST THE SITTER AND HOLD TH PT'S HAND. INSERTED SHIELY #6 CUFFLES TRACH. PT WAS DE SAT 80%. READJUSTED HOB, PT IS GETTING 15L O2 . RT ALSO AT BED SIDE. GIVING B TX. PT CALM DOWN AND SAT WENT UP TO 90%. ENDORSE TO DAY SHIFT NURSE TO FOLLOW UP.
--- NOTE | 2016-09-16 07:20 | NUR ---
RN INITIAL NOTES: Rec'd pt on bed, HOB elevated, A&Ox3, restless & agitated. Pt on trache mask at 15 lpm, saturating at 92%, noted to have , tachypneic. RT on bedside. ABG done STAT, (as per RT, result is metabolic acidosis). Suctioning done. On telemonitor, SR w/ 1 deg AV Block, BBB, HR at 95. Pt has R CW Sarmad cath for HD, C/D/I. Has FERNANDO midline & R index finger G24, SL, flushed, patent, C/D/I, no signs of infection/ infiltration noted. CL placed w/in reached, Bed kept low & in locked position. Will continue to monitor.
[2016-09-16] MEDS ORDERED: PANTOPRAZOLE 40 MG TABLET.DR PO SCH (07:30)
[2016-09-16 07:37] LABS: ABG BASE EXCESS -9.9 mmol/L; ABG OXYGEN SATURATION 92.3 % (92.0-98.5); ABG PCO2 33.9 mmHg (35.0-45.0); ABG PH 7.286 (7.350-7.450); ABG PO2 77.1 mmHg (75.0-100.0); ABG TOTAL HEMOGLOBIN 9.8 G/dL (13.5-18.0); AaDO2 313.4 mmHg; MetHb 0.9 % (0.0-1.5); O2Hb 90.5 % (94.0-97.0); SITE, ABG Right Radial; VENT MODE, BG 60% COOL AERO
--- NOTE | 2016-09-16 07:45 | NUR ---
RN NOTES: Pt was placed on MV c/o Daina, RT w/ ff settings: Shiley 6, AC 12, TV 550, FIO2 50%, PEEP 0.
--- NOTE | 2016-09-16 07:54 | NUR ---
NOTIFIED DR. HILTON REGARDING ABG RESULTS AND PT. HAVING RESPIRATORY DISTRESS,WILL PLACED ON VENT POST TRACH CHANGE.DR. GONCALVES NOTIFIED ALSO FOR MEDS TO CALM DOWN PT. AWAITS FOR RESPONSE.
[2016-09-16 08:00] VITALS: BP 165/93
--- NOTE | 2016-09-16 08:00 | NUR ---
RN NOTES: Pt started on HD, c/o ANGELICA Suarez.
--- NOTE | 2016-09-16 08:10 | NUR ---
LATE ENTRY: RT NOTE RECEIVED PATIENT WITH #6 SHILEY CUFFLESS TRACH WITHOUT INNER CANNULA IN SEVERE DISTRESS. RR=28-30 AND SP02 86% ON 40% COOL AEROSOL VIA TRACH COLLAR. PATIENT'S FIO2 WAS INCREASE TO 60% AND MAINTAINING CN89=74-87%. INLINE TREATMENT DONE. ABG DONE AND REPORTED TO CHARGE NURSE (ANA). PATIENT'S TRACH WAS CHANGED TO #6 SHILEY CUFFED TRACH AND PLACED ON MECHANICAL VENT PER MD ORDER'S. NO BLEEDING NOTED. MEMS INTEGRATION ENGINEER DONE. SETTINGS PER MD ORDER. SUCTIONED AND LAVAGED THICK HORTON SECRETIONS. ALARMS SET AND AUDIBLE. VENT PLUGGED INTO RED OUTLET. AMBU BAG AT [facility].
[2016-09-16 08:37] LABS: BASOPHILS % (AUTO) 0.3 % (0.0-2.0); EOSINOPHILS # (AUTO) 0.1 /CMM (0.0-0.7); HEMATOCRIT 30 % (39-51); HEMOGLOBIN 9.9 g/dL (13.5-17.5); LYMPHOCYTES # (AUTO) 0.8 /CMM (0.8-4.8); LYMPHOCYTES % (AUTO) 5.5 % (20.0-44.0); MEAN CORPUSCULAR HEMOGLOBIN 31 PG (26.0-33.0); MEAN CORPUSCULAR HGB CONC 33 g/dl (31.0-36.0); MEAN CORPUSCULAR VOLUME 93 fL (80-96); MONOCYTES # (AUTO) 0.9 /CMM (0.1-1.30); MONOCYTES % (AUTO) 6.4 % (2.0-12.0); NEUTROPHILS # (AUTO) 12.4 /CMM (1.8-8.9); NEUTROPHILS % (AUTO) 86.8 % (43.0-81.0); PLATELET COUNT (AUTO) 166 /CMM (150-450); RDW COEFFICIENT OF VARIATION 15.7 (11.5-15.0); RED BLOOD CELL COUNT(AUTO) 3.23 MIL/uL (4.5-6.0); WHITE BLOOD COUNT (AUTO) 14.3 K/uL (4.3-11.0)
[2016-09-16 08:43] LABS: ALBUMIN 4.1 g/dL (3.4-5.0); BILIRUBIN,TOTAL 0.4 mg/dL (0.2-1.0); CALCIUM, SERUM 8.4 mg/dL (8.5-10.1); MAGNESIUM 2.5 mg/dL (1.8-2.4); POTASSIUM 5.3 mmol/L (3.5-5.1); TOTAL PROTEIN, SERUM 8.1 g/dL (6.4-8.2)
[2016-09-16 08:46] LABS: CREATININE 11.6 mg/dL (0.6-1.3)
[2016-09-16] MEDS: FLUTICASONE/SALMETEROL DISKUS IH SCH ×2 (09:00→21:03)
[2016-09-16] MEDS ORDERED: AMIODARONE HCL 200 MG TABLET PO SCH (09:00)
[2016-09-16] MEDS ORDERED: THIAMINE HCL 100 MG TABLET PO SCH (09:00)
[2016-09-16] MEDS ORDERED: METOPROLOL TARTRATE 25 MG TABLET PO SCH (09:00)
[2016-09-16] MEDS ORDERED: FERROUS SULFATE (325 MG) 325 MG/TAB TABLET PO SCH (09:00)
[2016-09-16] MEDS ORDERED: AMLODIPINE BESYLATE 5 MG TABLET PO SCH (09:00)
[2016-09-16] MEDS ORDERED: FOLIC ACID 1 MG TABLET PO SCH (09:00)
[2016-09-16] MEDS ORDERED: PHENYTOIN EXTENDED RELEASE 100 MG CAPSULE PO SCH (09:00)
[2016-09-16] MEDS ORDERED: LEVETIRACETAM (250 MG) 250 MG TABLET PO SCH (09:00)
[2016-09-16] MEDS ORDERED: ASPIRIN 81 MG TAB.CHEW PO SCH (09:00)
--- NOTE | 2016-09-16 09:00 | NUR ---
RN NOTES: Pt was seen & examined by Dr. Rodriguez w/ orders & carried out. Dr. Rodriguez also talked to Dr. Whitt re: pt current status.
[2016-09-16 09:12] LABS: PHOSPHORUS 9.5 mg/dL (2.5-4.9)
[2016-09-16] MEDS: FUROSEMIDE 40 MG/4 ML VIAL IV SCH (09:33)
[2016-09-16 09:57] LABS: THYROID STIMULATING HORMONE 2.727 uIU/mL (0.358-3.74); TROPONIN I 0.029 ng/mL (0.00-0.056)
--- NOTE | 2016-09-16 10:30 | NUR ---
RN NOTES: Pt was seen & examined by Dr. Escobedo w/ verbal orders made & carried out. Ordered to hold PO meds & shift pt's Dilantin, Amiodarone, Lopressor, & Protonix to IV. Informed him that pt had episode of nausea & vomiting, Zofran IV was given, ordered to do KUB stat.
[2016-09-16] MEDS: diphenhydrAMINE HCL 50 MG/ML VIAL IV PRN ×2 (11:11→18:03)
[2016-09-16] MEDS: HYDROMORPHONE 1 MG/1 ML DISP.SYRIN IV PRN ×2 (11:11→17:52)
[2016-09-16 12:00] VITALS: BP 128/59
[2016-09-16] MEDS: PANTOPRAZOLE 40 MG VIAL IV SCH (12:44)
[2016-09-16] MEDS: METOPROLOL TARTRATE INJ 5 MG/5 ML AMPUL IVP SCH ×2 (13:00→21:00)
[2016-09-16] MEDS: Z GUARD REMEDY 2 OZ OINT TP PRN (14:53)
[2016-09-16 16:00] VITALS: BP 122/77
--- NOTE | 2016-09-16 19:13 | NUR ---
RN CLOSING NOTES: Pt A&Ox3, not in distress, tolerated prescribed MV settings, saturating at 100%. Suctioned secretions. Pt NPO for now. Pt's R CW Sarmad cath for HD, C/D/I. Pt's FERNANDO midline & R index finger G24, SL, flushed, patent, C/D/I, no signs of infection/ infiltration noted. Instructed pt not to pull his trache, verbalized understanding. Needs attended. CL placed w/in reached, Bed kept low & in locked position. Isolation prec observed. Will endorse to PM RN for AGATHA.
[2016-09-16] MEDS ORDERED: IV NS 0.9% 250 ML IV ONE (19:53)
[2016-09-16] MEDS ORDERED: IV SET PRIMARY PUMP SET 1 EA INFUS.SET MC ONE (19:53)
[2016-09-16] MEDS ORDERED: SECONDARY IV SET 1 EA INFUS.SET MC ONE (19:53)
[2016-09-16 20:00] VITALS: BP 118/73
[2016-09-16] MEDS: D5W IV SCH (20:15)
[2016-09-16] MEDS: AMIODARONE IV SCH (20:15)
[2016-09-16] MEDS ORDERED: ATORVASTATIN 10 MG TABLET PO SCH (22:00)
[2016-09-16] MEDS ORDERED: PHENYTOIN SODIUM IV 50 MG/ML VIAL IV SCH (22:00)
[2016-09-17] VITALS: BP 103/66
[2016-09-17] MEDS: diphenhydrAMINE HCL 50 MG/ML VIAL IV PRN ×4 (00:04→19:55)
[2016-09-17] MEDS: HYDROMORPHONE 1 MG/1 ML DISP.SYRIN IV PRN ×4 (00:05→19:59)
[2016-09-17] MEDS: ALBUTEROL FS 2.5 MG/3 ML VIAL.NEB NEB SCH ×4 (01:38→20:17)
[2016-09-17] MEDS: IPRATROPIUM NEB FS 0.5 MG/2.5 ML AMPUL.NEB NEB SCH ×4 (01:39→20:17)
[2016-09-17 04:00] VITALS: BP 107/68
[2016-09-17] MEDS: METOPROLOL TARTRATE INJ 5 MG/5 ML AMPUL IVP SCH ×2 (04:23→12:40)
--- NOTE | 2016-09-17 07:18 | NUR ---
TELE-TD/PLACEMENT INTERVIEWER REPORT TO PATSY DOMINGUEZ FOR CONT OF CARE.
--- NOTE | 2016-09-17 07:30 | NUR ---
RN INITIAL NOTES RECEIVED PT IN BED, AWAKE, PT IS ABLE TO MAKE NEEDS KNOWN, PT IS ON [facility] VENT SHILEY #6 AC 12 TV 550 FIO2 40% PEEP 0, SATING WELL, NO S/S OF RESP. DISTRESS OR SOB AT THIS TIME, PT IS ON TELE MONITOR SHOWING SR W/BBB @ 64 BPM, NO C/O FO CHEST PAIN OR DISCOMFORT AT THIS TIME, PT IS NOTED WITH MULTIPLE SKIN ISSUES, PT HAS FERNANDO MIDLINE ,RUNNING TKO, R INDEX FINGER, SL, C/D/I/PATENT, FLUSHING WELL, NO S/S OF INFECTION/ INFILTRATION NOTED AT THIS TIME, RCW HD CATH, DRESSING IS INTACT, CLEAN AND DRY, ISOLATION PRECAUTIONS OBSERVED AT ALL TIMES, SITTER AT BEDSIDE, ALL SAFETY MEASURES IN PLACE AT ALL TIMES, CALL LIGHT WITHIN EASY REACH, WILL MONITOR PT CLOSELY FOR CHANGES.
--- NOTE | 2016-09-17 07:50 | NUR ---
RN NOTES PT PUT ON CPAP, SATING WELL, NO S/S OF RESP.DISTRESS OR SOB NOTED AT THIS TIME, PT IS RESTING COMFORTABLY ,WILL MONITOR CLOSELY
[2016-09-17 08:00] VITALS: BP 116/71
[2016-09-17] MEDS: FUROSEMIDE 40 MG/4 ML VIAL IV SCH (08:29)
[2016-09-17] MEDS: FLUTICASONE/SALMETEROL DISKUS IH SCH ×2 (08:29→21:14)
[2016-09-17] MEDS: AMIODARONE IV SCH (08:30)
[2016-09-17] MEDS: D5W IV SCH (08:30)
[2016-09-17] MEDS: Z GUARD REMEDY 2 OZ OINT TP PRN (08:31)
[2016-09-17 08:32] LABS: BASOPHILS # (AUTO) 0.1 /CMM (0.0-0.2); BASOPHILS % (AUTO) 0.8 % (0.0-2.0); EOSINOPHILS # (AUTO) 0.4 /CMM (0.0-0.7); EOSINOPHILS % (AUTO) 5.8 % (0.0-6.0); HEMATOCRIT 24 % (39-51); HEMOGLOBIN 8.1 g/dL (13.5-17.5); LYMPHOCYTES # (AUTO) 1.1 /CMM (0.8-4.8); LYMPHOCYTES % (AUTO) 14.9 % (20.0-44.0); MEAN CORPUSCULAR HEMOGLOBIN 31 PG (26.0-33.0); MEAN CORPUSCULAR HGB CONC 34 g/dl (31.0-36.0); MEAN CORPUSCULAR VOLUME 92 fL (80-96); MONOCYTES # (AUTO) 0.7 /CMM (0.1-1.30); MONOCYTES % (AUTO) 9.7 % (2.0-12.0); NEUTROPHILS # (AUTO) 4.8 /CMM (1.8-8.9); NEUTROPHILS % (AUTO) 68.8 % (43.0-81.0); PLATELET COUNT (AUTO) 128 /CMM (150-450); RDW COEFFICIENT OF VARIATION 15.4 (11.5-15.0); RED BLOOD CELL COUNT(AUTO) 2.63 MIL/uL (4.5-6.0)
[2016-09-17 08:37] LABS: ALBUMIN 3.4 g/dL (3.4-5.0); BILIRUBIN,TOTAL 0.6 mg/dL (0.2-1.0); CALCIUM, SERUM 8.2 mg/dL (8.5-10.1); POTASSIUM 3.7 mmol/L (3.5-5.1)
--- NOTE | 2016-09-17 09:00 | NUR ---
RN NOTES PT WAS PLACED ON COOL AEROSOL, TOLERATING WELL, NO S/S OF RESP.DISTRESS OR SOB NOTED, SATING 100%, WILL MONITOR CLOSELY FOR CHANGES
--- NOTE | 2016-09-17 09:03 | NUR ---
WOUND CARE CONSULT: PATIENT SEEN AND SKIN ASSESSMENT DONE. TRACH DEPENDENT PATIENT, SITTER AT BEDSIDE DUE TO BEING COMBATIVE LAST NIGHT ACCORDING TO SITTER AND NURSE. PATIENT ABLE TO TURN AND REPOSITION HOWEVER NEEDS PROMPTING, ANURIC AND CONTINENT OF STOOLS ACCORDING TO NURSING STAFF, ANDI Peck. SEE TODAY'S SKIN ASSESSMENT IN PCS ALONG WITH RECOMMENDATIONS DISCUSSED WITH NURSING STAFF INCLUDING MOISTURE PROTECTION PRN AND PROMPT IN TURNING/REPOSITIONING ORDERED. MD IN AGREEMENT WITH PLAN OF CARE. Addendum: 09/17/16 at 0907 by NUNU CLIFFORD WNDNU Amended: Links added.
[2016-09-17 09:04] LABS: ABG BASE EXCESS -0.7 mmol/L; ABG OXYGEN SATURATION 97.5 % (92.0-98.5); ABG PCO2 46.3 mmHg (35.0-45.0); ABG PO2 138.7 mmHg (75.0-100.0); ABG TOTAL HEMOGLOBIN 8.5 G/dL (13.5-18.0); AaDO2 93.3 mmHg; COHb 1.2 % (0.5-1.5); MetHb 0.9 % (0.0-1.5); O2Hb 95.5 % (94.0-97.0); PEEP,BG 5 cm H2O; SITE, ABG Right Radial; VENT MODE, BG CPAP PS12
[2016-09-17 09:08] LABS: CREATININE 9.9 mg/dL (0.6-1.3)
--- NOTE | 2016-09-17 09:20 | NUR ---
RN NOTES PT IS RECEIVING HD AT THIS TIME
[2016-09-17 12:00] VITALS: BP 138/91
--- NOTE | 2016-09-17 12:30 | NUR ---
RN NOTES ANDRY COMPLETED 2.1L OUT
[2016-09-17] MEDS: PANTOPRAZOLE 40 MG VIAL IV SCH (12:39)
[2016-09-17] MEDS: MUPIROCIN OINT 2% 22 GM TUBE SCH ×2 (12:40→21:16)
[2016-09-17] MEDS: PHENYTOIN SODIUM IV 50 MG/ML VIAL IV SCH ×2 (12:40→21:14)
[2016-09-17 16:00] VITALS: BP 126/79
[2016-09-17] MEDS: HYDROCODONE/APAP 5/325MG 1 EACH TABLET PO PRN (17:58)
[2016-09-17] MEDS ORDERED: AMIODARONE HCL 200 MG TABLET PO ONE (18:00)
--- NOTE | 2016-09-17 19:03 | NUR ---
RN CLOSING NOTES PT REMAINED STABLE DURING SHIFT, ALL MD ORDERS CARRIED OUT, ALL MEDICATIONS GIVEN, IV REMAINS C/D/I/PATENT, ISOLATIONS OBSERVED AT ALL TIMES, PT KEPT CLEAN AND DRY, ALL TREATMENTS CARRIED OUT, ALL SAFETY MEASURES IN PLACE AT ALL TIMES, REPORT WILL BE GIVEN TO PM RN FOR AGATHA
[2016-09-17 20:00] VITALS: BP_SYST 140; BP_DIAS 75; BP_DIAS 76
--- NOTE | 2016-09-17 20:00 | NUR ---
DENI NOTES RECEIVED PT ON COOL AEROSOL VIA TRACH SPO2 100% ON 35% FI02.MEDICATED EARLIER FOR C/LT KNEE PAIN AND CHEST WALL PAIN 01/28.SITTER AT BEDSIDE.
[2016-09-17] MEDS: METOPROLOL TARTRATE 25 MG TABLET PO SCH (21:15)
[2016-09-18] VITALS: BP 111/63
[2016-09-18] MEDS: diphenhydrAMINE HCL 50 MG/ML VIAL IV PRN ×3 (01:43→14:13)
[2016-09-18] MEDS: HYDROMORPHONE 1 MG/1 ML DISP.SYRIN IV PRN ×3 (01:43→14:13)
[2016-09-18] MEDS ORDERED: IV NS 0.9% 250 ML IV ONE (01:48)
[2016-09-18] MEDS: IPRATROPIUM NEB FS 0.5 MG/2.5 ML AMPUL.NEB NEB SCH ×3 (01:50→12:59)
[2016-09-18] MEDS: ALBUTEROL FS 2.5 MG/3 ML VIAL.NEB NEB SCH ×3 (01:50→12:59)
[2016-09-18] MEDS ORDERED: IV NS 0.9% 250 ML IV PRN (02:00)
[2016-09-18 04:00] VITALS: BP 115/79
[2016-09-18] MEDS: PHENYTOIN SODIUM IV 50 MG/ML VIAL IV SCH ×2 (04:40→12:56)
--- NOTE | 2016-09-18 06:14 | NUR ---
DENI NOTES STABLE VITAL SIGNS.COOL AEROSOL VIA TRACH 40% W/O2 SAT 96-100%.REFUSED TO HAVE SHILEY CHANGED.DRAIN SPONGE CHANGED.
[2016-09-18 07:20] LABS: BASOPHILS % (AUTO) 0.3 % (0.0-2.0); EOSINOPHILS # (AUTO) 0.2 /CMM (0.0-0.7); EOSINOPHILS % (AUTO) 2.1 % (0.0-6.0); HEMATOCRIT 27 % (39-51); HEMOGLOBIN 8.9 g/dL (13.5-17.5); LYMPHOCYTES # (AUTO) 1.3 /CMM (0.8-4.8); LYMPHOCYTES % (AUTO) 16.9 % (20.0-44.0); MEAN CORPUSCULAR HEMOGLOBIN 31 PG (26.0-33.0); MEAN CORPUSCULAR HGB CONC 33 g/dl (31.0-36.0); MEAN CORPUSCULAR VOLUME 93 fL (80-96); MONOCYTES # (AUTO) 0.6 /CMM (0.1-1.30); MONOCYTES % (AUTO) 7.9 % (2.0-12.0); NEUTROPHILS # (AUTO) 5.5 /CMM (1.8-8.9); NEUTROPHILS % (AUTO) 72.8 % (43.0-81.0); PLATELET COUNT (AUTO) 162 /CMM (150-450); RDW COEFFICIENT OF VARIATION 15.5 (11.5-15.0); RED BLOOD CELL COUNT(AUTO) 2.87 MIL/uL (4.5-6.0); WHITE BLOOD COUNT (AUTO) 7.6 K/uL (4.3-11.0)
[2016-09-18 07:30] LABS: CALCIUM, SERUM 7.8 mg/dL (8.5-10.1); POTASSIUM 4.2 mmol/L (3.5-5.1)
[2016-09-18] MEDS ORDERED: PANTOPRAZOLE 40 MG TABLET.DR PO SCH (07:30)
--- NOTE | 2016-09-18 07:45 | NUR ---
RN DENI: pt.is A/Ox3, c/o general, legs, LB pain 8/10, itching, O2 sat. WNL, HR 59-75 over night, SBP over 100, creatinine 7.8 (down, abnormal), getting lasix/HD pt., w/s with MD, has sitter
[2016-09-18 07:47] LABS: CREATININE 7.8 mg/dL (0.6-1.3)
[2016-09-18 08:00] VITALS: BP 147/74
--- NOTE | 2016-09-18 08:45 | NUR ---
RN DENI: updated with pt.current condition, VS, I/O, HD, labs, meds
[2016-09-18] MEDS ORDERED: AMIODARONE HCL 200 MG TABLET PO SCH (09:00)
[2016-09-18] MEDS: FLUTICASONE/SALMETEROL DISKUS IH SCH (09:32)
[2016-09-18] MEDS: MUPIROCIN OINT 2% 22 GM TUBE SCH (09:32)
[2016-09-18] MEDS: METOPROLOL TARTRATE 25 MG TABLET PO SCH (09:32)
[2016-09-18 09:34] VITALS: BP 124/76
--- NOTE | 2016-09-18 10:15 | NUR ---
ALTITUDE CHAMBER TECHNICIAN: pt.is able to urinate, continue lasix per
[2016-09-18] MEDS: FUROSEMIDE 40 MG/4 ML VIAL IV SCH (10:22)
[2016-09-18 13:00] VITALS: BP 124/76
--- NOTE | 2016-09-18 14:00 | NUR ---
RN DENI: pt.c/o L.knee, LB pain 8/10, general itching, getting prn meds
--- NOTE | 2016-09-18 16:27 | NUR ---
RN DENI: pt.is rest, no c/o, no pain, O2 sat.over 94%, SR, SBP over 100, full report was given for ANGELICA Jones ([facility], [id number] [phone])
[2016-09-18 17:00] VITALS: BP 120/75
== END 2016-09-18 17:46 | DRG 291 ==
LOC: ER 15:12 → TELE1 19:53 → TELE-TD 09-16 07:54 → MEDSG1 09-18 10:18
PROVIDERS: ADMIT Family Medicine; ATTEND Family Medicine
PROC: 5A1D60Z (ICD-10-PCS; principal; 2016-09-16)
PROC: 05H533Z Insertion of Infusion Device into Right Subclavian Vein, Percutaneous Approach (ICD-10-PCS; 2016-09-16)
DX: I13.2 Hypertensive heart and chronic kidney disease with heart failure and with stage 5 chronic kidney disease, or end stage renal disease (principal); I50.33 Acute on chronic diastolic (congestive) heart failure; J96.21 Acute and chronic respiratory failure with hypoxia; N18.6 End stage renal disease; J96.22 Acute and chronic respiratory failure with hypercapnia; D68.59 Other primary thrombophilia; J98.11 Atelectasis; Z99.2 Dependence on renal dialysis; Z93.0 Tracheostomy status; E11.22 Type 2 diabetes mellitus with diabetic chronic kidney disease; J45.909 Unspecified asthma, uncomplicated; I48.2 Chronic atrial fibrillation; I25.10 Atherosclerotic heart disease of native coronary artery without angina pectoris; D50.9 Iron deficiency anemia, unspecified; E78.5 Hyperlipidemia, unspecified; Z86.73 Personal history of transient ischemic attack (TIA), and cerebral infarction without residual deficits; F17.210 Nicotine dependence, cigarettes, uncomplicated; E87.5 Hyperkalemia; Z99.81 Dependence on supplemental oxygen; G40.909 Epilepsy, unspecified, not intractable, without status epilepticus; E66.9 Obesity, unspecified; J44.9 Chronic obstructive pulmonary disease, unspecified; K59.00 Constipation, unspecified; M19.90 Unspecified osteoarthritis, unspecified site; Z22.322 Carrier or suspected carrier of Methicillin resistant Staphylococcus aureus; Z91.19 Patient's noncompliance with other medical treatment and regimen
CPT/HCPCS: 31720; 36415; 36600; 71010-TC; 73560-TC; 74000-TC; 80048-TC; 80053-TC; 80076-TC; 83605-TC; 83735-TC; 83880; 84100-TC; 84439-TC; 84443-TC; 84484-TC; 85025-TC; 85730-TC; 87040-TC; 87081-TC; 93307-TC; 94002-TC; 94003-TC; 94640-TC; A4606; A4623; C9113; J0282; J1165; J1170; J1200; J1940; J2405; J3490; J7050; J7060; Z7610

== ENCOUNTER 2016-09-27 15:11 | Emergency (ER) | payer BC, MEDICAID ==
[~2016-09-27] VITALS: Ht 165.1 cm; Wt 95.3 kg
[~2016-09-27 15:11] MED LIST changes: +ACID1TAB4 PO; +ALBU2.5V38 NEB; -ASCO500T8 PO; -BISA10SU8 RC; -CALC-108 PO; +CALC667C6 PO; -CALC668T PO; -CLON0.3T PO; -DOCU-25 PO; -ESOM40CA PO; -GABA-532 PO; +HYDR-4076 PO; -HYDR-4077 PO; +HYDR-552 PO; -HYDR2TAB7 PO; +IPRA0.2S49 NEB; -IPRA0.2S9 IH; -IPRA3AMP IH; -LABE200T PO; -LIDO30AD10 TP; -MAG30ORA PO; -MAGN400O4 PO; -METH10TA2 PO; -NITR0.4T SL; -ONDA-25 PO; -PHEN125O8 PO; -PHEN50TA4 PO; -PRED20TA PO; -RISP2TAB23 PO; +SENN8.6T6 PO; +TRAM50TA2 PO; +ZOLP5TAB7 PO
--- NOTE | 2016-09-27 15:17 | NUR ---
PT CECELIA FROM SNF TO ER BED 15. SENT BY PMD FOR LOW H&H. PT C/O TAILBONE PAIN. PLACED ON MONITOR. STABLE VITALS NOTED. AWAITING MD TERAN.
--- NOTE | 2016-09-27 15:23 | NUR ---
DR SANCHEZ AT BEDSIDE FOR EVAL.
[2016-09-27] MEDS ORDERED: HYDROMORPHONE 1 MG/1 ML DISP.SYRIN IV ONE (15:30)
[2016-09-27] MEDS ORDERED: HYDROMORPHONE 1 MG/1 ML DISP.SYRIN ONE (15:40)
--- NOTE | 2016-09-27 15:50 | NUR ---
DE ALCHOLIZER AT BEDSIDE FOR EVAL.
[2016-09-27 16:00] LABS: BASOPHILS % (AUTO) 0.3 % (0.0-2.0); EOSINOPHILS # (AUTO) 0.4 /CMM (0.0-0.7); EOSINOPHILS % (AUTO) 6.3 % (0.0-6.0); HEMATOCRIT 28 % (39-51); HEMOGLOBIN 9.1 g/dL (13.5-17.5); LYMPHOCYTES # (AUTO) 1.1 /CMM (0.8-4.8); LYMPHOCYTES % (AUTO) 18.2 % (20.0-44.0); MEAN CORPUSCULAR HEMOGLOBIN 31 PG (26.0-33.0); MEAN CORPUSCULAR HGB CONC 33 g/dl (31.0-36.0); MEAN CORPUSCULAR VOLUME 93 fL (80-96); MONOCYTES # (AUTO) 0.6 /CMM (0.1-1.30); MONOCYTES % (AUTO) 10.5 % (2.0-12.0); NEUTROPHILS % (AUTO) 64.7 % (43.0-81.0); PLATELET COUNT (AUTO) 179 /CMM (150-450); RDW COEFFICIENT OF VARIATION 14.7 (11.5-15.0); RED BLOOD CELL COUNT(AUTO) 2.96 MIL/uL (4.5-6.0); WHITE BLOOD COUNT (AUTO) 6.1 K/uL (4.3-11.0)
[2016-09-27] MEDS ORDERED: RISP2TAB5 PO (16:04)
[2016-09-27] MEDS ORDERED: LEVE1000 PO (16:04)
[2016-09-27] MEDS ORDERED: FLUT1DIS3 INH (16:04)
[2016-09-27] MEDS ORDERED: diphenhydrAMINE HCL 50 MG/ML VIAL ONE (16:05)
[2016-09-27 16:11] LABS: CALCIUM, SERUM 8.5 mg/dL (8.5-10.1); CREATININE 6.8 mg/dL (0.6-1.3); POTASSIUM 5.3 mmol/L (3.5-5.1)
[2016-09-27] MEDS ORDERED: diphenhydrAMINE HCL 50 MG/ML VIAL IV ONE (16:30)
--- NOTE | 2016-09-27 17:29 | NUR ---
CALLED [facility] FOR TRANSPORT - WAITING FOR CALL BACK
[2016-09-27] MEDS ORDERED: SODIUM POLYSTYRENE SULFONATE 15 G/60 ML BOTTLE PO ONE (17:30)
[2016-09-27] MEDS ORDERED: SODIUM POLYSTYRENE SULFONATE 15 G/60 ML BOTTLE ONE (17:35)
--- NOTE | 2016-09-27 17:51 | NUR ---
[facility] CALLED FOR ETA OF 1929
--- NOTE | 2016-09-27 20:00 | NUR ---
transfered back to snf. stable condition.
[2016-09-27 20:13] VITALS: BP 132/77
== END 2016-09-27 20:14 | disposition home or self-care (01) ==
LOC: ER 15:14
DX: D64.9 Anemia, unspecified (principal); I12.0 Hypertensive chronic kidney disease with stage 5 chronic kidney disease or end stage renal disease; N18.6 End stage renal disease; K21.9 Gastro-esophageal reflux disease without esophagitis; I48.91 Unspecified atrial fibrillation; I50.9 Heart failure, unspecified; Z79.82 Long term (current) use of aspirin; Z86.73 Personal history of transient ischemic attack (TIA), and cerebral infarction without residual deficits; Z99.2 Dependence on renal dialysis; Z88.5 Allergy status to narcotic agent
CPT/HCPCS: 36415; 80048; 85025; 86850; 96374; 96375; 99284; A4606; J1170; J1200; A4624; Z7610

== ENCOUNTER 2016-09-28 15:25 | Emergency (ER) | payer BC, MEDICAID ==
[~2016-09-28] VITALS: Ht 165.1 cm; Wt 95.3 kg
[~2016-09-28 15:25] MED LIST changes: +FLUT1DIS3 INH; +LEVE1000 PO; +RISP2TAB5 PO
--- NOTE | 2016-09-28 15:29 | NUR ---
Pt ramesh lopez from dialysis cc: nausea and vomiting post dialysis tx. Pt verbalized he fell complains of left shoulder pain. Placed on monitor. VSS. Awaiting md order.
[2016-09-28] MEDS ORDERED: ONDANSETRON 4 MG TAB.RAPDIS ONE (15:56)
[2016-09-28] MEDS ORDERED: ONDANSETRON 4 MG TAB.RAPDIS SL ONE (16:00)
--- NOTE | 2016-09-28 16:00 | NUR ---
PICC LINE ALREADY REMOVED BENCH ASSEMBLER OPERATOR. NO NOTED BLEEDING. MADE AWARE. CLEAN AND TOOK OUT TAPE.
[2016-09-28 16:06] LABS: BASOPHILS % (AUTO) 0.3 % (0.0-2.0); EOSINOPHILS # (AUTO) 0.4 /CMM (0.0-0.7); EOSINOPHILS % (AUTO) 4.8 % (0.0-6.0); HEMATOCRIT 28 % (39-51); HEMOGLOBIN 9.3 g/dL (13.5-17.5); LYMPHOCYTES # (AUTO) 0.9 /CMM (0.8-4.8); LYMPHOCYTES % (AUTO) 11.8 % (20.0-44.0); MEAN CORPUSCULAR HEMOGLOBIN 31 PG (26.0-33.0); MEAN CORPUSCULAR HGB CONC 34 g/dl (31.0-36.0); MEAN CORPUSCULAR VOLUME 92 fL (80-96); MONOCYTES # (AUTO) 0.8 /CMM (0.1-1.30); MONOCYTES % (AUTO) 10.4 % (2.0-12.0); NEUTROPHILS # (AUTO) 5.5 /CMM (1.8-8.9); NEUTROPHILS % (AUTO) 72.7 % (43.0-81.0); PLATELET COUNT (AUTO) 178 /CMM (150-450); RDW COEFFICIENT OF VARIATION 14.5 (11.5-15.0); RED BLOOD CELL COUNT(AUTO) 2.98 MIL/uL (4.5-6.0); WHITE BLOOD COUNT (AUTO) 7.6 K/uL (4.3-11.0)
[2016-09-28 16:15] LABS: CALCIUM, SERUM 8.8 mg/dL (8.5-10.1); POTASSIUM 4.7 mmol/L (3.5-5.1)
[2016-09-28 16:18] LABS: CREATININE 8.2 mg/dL (0.6-1.3)
--- NOTE | 2016-09-28 16:19 | NUR ---
PT TAKEN TO XRAY
[2016-09-28 16:21] LABS: ALBUMIN 3.8 g/dL (3.4-5.0); BILIRUBIN,DIRECT 0.1 mg/dL (0.0-0.2); BILIRUBIN,TOTAL 0.3 mg/dL (0.2-1.0); TOTAL PROTEIN, SERUM 7.5 g/dL (6.4-8.2)
--- NOTE | 2016-09-28 16:57 | NUR ---
CALLED [facility] FOR TRANSPORTATION ETA 90 MIN.
[2016-09-28 17:42] VITALS: BP 135/88
--- NOTE | 2016-09-28 18:06 | NUR ---
CALLED RT FOR DEEP SUCTION.
--- NOTE | 2016-09-28 18:58 | NUR ---
Patient discharged to home in stable condition. Written and verbal after care instructions given. Patient verbalizes understanding of instruction.
== END 2016-09-28 18:58 | disposition home or self-care (01) ==
LOC: EDUNIT# 15:25 → ER 15:26
DX: S40.012A Contusion of left shoulder, initial encounter (principal); S30.0XXA Contusion of lower back and pelvis, initial encounter; R11.2 Nausea with vomiting, unspecified; I12.0 Hypertensive chronic kidney disease with stage 5 chronic kidney disease or end stage renal disease; N18.6 End stage renal disease; I48.91 Unspecified atrial fibrillation; K21.9 Gastro-esophageal reflux disease without esophagitis; Z88.6 Allergy status to analgesic agent; Z76.5 Malingerer [conscious simulation]; Z79.82 Long term (current) use of aspirin; Z86.73 Personal history of transient ischemic attack (TIA), and cerebral infarction without residual deficits; Z93.0 Tracheostomy status; Z99.2 Dependence on renal dialysis; W01.198A Fall on same level from slipping, tripping and stumbling with subsequent striking against other object, initial encounter; Y93.89 Activity, other specified; Y92.89 Other specified places as the place of occurrence of the external cause; Y99.9 Unspecified external cause status
CPT/HCPCS: 36415; 72100; 73030; 80048; 80076; 83690; 85025; 99285; A4606; Q0162; Z7610

== ENCOUNTER 2016-09-29 21:56 | Emergency (ER) | payer BC, MEDICAID ==
[~2016-09-29] VITALS: Ht 165.1 cm; Wt 96.6 kg
[~2016-09-29 21:56] MED LIST changes: -ACET-868 PO; -ACID1TAB4 PO; -ASPI81TA2 PO; -CHOL10002 PO; -FERR1TAB44 PO; -FLUT1DIS3 INH; -SENN8.6T6 PO; -THIA100T13 PO
--- NOTE | 2016-09-29 22:06 | NUR ---
PT BIBRA FROM SNF TO ER BED 14. PER REPORT, UNWITNESSED SEIZURE. WAS FOUND IN THE FLOOR. NO OBVIOUS HEAD AND ORAL TRAUMA NOTED. PT IS VERBALLY RESPONSIVE CREW LEADER AND IS C/O 10/10 PAIN WORST TO LT SIDE RIB AREA. PLACED ON MONITOR AND STABLE VITALS. AWAITING MD TERAN.
--- NOTE | 2016-09-29 22:16 | NUR ---
DR VELIZ AT BEDSIDE FOR EVAL.
[2016-09-29] MEDS ORDERED: LEVETIRACETAM (500MG) 500 MG/5 ML VIAL IV ONE (22:29)
[2016-09-29] MEDS ORDERED: IV SET PRIMARY 1 EA INFUS.SET MC ONE (22:29)
[2016-09-29] MEDS ORDERED: IV NS 0.9% 500 ML IV ONE (22:29)
[2016-09-29] MEDS ORDERED: IV NS 0.9% 100 ML IV ONE (22:29)
[2016-09-29] MEDS ORDERED: LEVETIRACETAM (500MG) 500 MG in IV NS 0.9% 100 ML IV SCH (22:30)
[2016-09-29] MEDS ORDERED: IV NS 0.9% 500 ML BAG IV ONE (22:30)
[2016-09-29] MEDS ORDERED: IV SET PRIMARY PUMP SET 1 EA INFUS.SET MC ONE (22:30)
--- NOTE | 2016-09-29 22:36 | NUR ---
IV LINE STARTED BLOOD DRAWN AND SENT TO LAB.
--- NOTE | 2016-09-29 22:45 | NUR ---
PT TO RADIOLOGY FOR HEAD CT SCAN VIA [facility].
[2016-09-29 22:57] LABS: BASOPHILS % (AUTO) 0.5 % (0.0-2.0); EOSINOPHILS # (AUTO) 0.2 /CMM (0.0-0.7); EOSINOPHILS % (AUTO) 2.3 % (0.0-6.0); HEMATOCRIT 25 % (39-51); HEMOGLOBIN 8.4 g/dL (13.5-17.5); LYMPHOCYTES % (AUTO) 13.5 % (20.0-44.0); MEAN CORPUSCULAR HEMOGLOBIN 31 PG (26.0-33.0); MEAN CORPUSCULAR HGB CONC 33 g/dl (31.0-36.0); MEAN CORPUSCULAR VOLUME 92 fL (80-96); MONOCYTES # (AUTO) 0.9 /CMM (0.1-1.30); NEUTROPHILS # (AUTO) 5.3 /CMM (1.8-8.9); NEUTROPHILS % (AUTO) 71.7 % (43.0-81.0); PLATELET COUNT (AUTO) 175 /CMM (150-450); RDW COEFFICIENT OF VARIATION 15.2 (11.5-15.0); RED BLOOD CELL COUNT(AUTO) 2.75 MIL/uL (4.5-6.0); WHITE BLOOD COUNT (AUTO) 7.4 K/uL (4.3-11.0)
[2016-09-29 23:03] LABS: LACTIC ACID 0.7 mmol/L (0.4-2.0)
[2016-09-29 23:10] LABS: CALCIUM, SERUM 8.5 mg/dL (8.5-10.1); CARBON DIOXIDE 27 mmol/L (21-32); CHLORIDE 97 mmol/L (98-107); GFR 6 mL/min (>60); GLUCOSE 102 mg/dL (74-106); POTASSIUM 5.5 mmol/L (3.5-5.1); SODIUM SERUM 137 mmol/L (136-145); UREA NITROGEN, BLOOD 71 mg/dL (7-18)
[2016-09-29 23:13] LABS: CREATININE 9.6 mg/dL (0.6-1.3)
[2016-09-29 23:14] LABS: ALANINE AMINOTRANSFERASE 30 U/L (12-78); ALBUMIN 3.6 g/dL (3.4-5.0); ALKALINE PHOSPHATASE 116 U/L (46-116); ASPARTATE AMINOTRANSFERASE 17 U/L (15-37); BILIRUBIN,DIRECT 0.1 mg/dL (0.0-0.2); BILIRUBIN,TOTAL 0.4 mg/dL (0.2-1.0); TOTAL PROTEIN, SERUM 7.4 g/dL (6.4-8.2)
[2016-09-29 23:16] LABS: ALCOHOL, BLOOD < 3 mg/dL (0-0)
--- NOTE | 2016-09-29 23:58 | NUR ---
Patient discharged to home in stable condition via ambulance. Written and verbal after care instructions given. Patient verbalizes understanding of instruction. No s/s of distress noted.
[2016-09-29 23:59] VITALS: BP 152/82
== END 2016-09-30 00:04 | disposition home or self-care (01) ==
LOC: ER 21:57
DX: S20.212A Contusion of left front wall of thorax, initial encounter (principal); G89.29 Other chronic pain; R56.9 Unspecified convulsions; I12.0 Hypertensive chronic kidney disease with stage 5 chronic kidney disease or end stage renal disease; N18.6 End stage renal disease; K21.9 Gastro-esophageal reflux disease without esophagitis; I48.91 Unspecified atrial fibrillation; I44.7 Left bundle-branch block, unspecified; Z79.82 Long term (current) use of aspirin; Z86.73 Personal history of transient ischemic attack (TIA), and cerebral infarction without residual deficits; Z99.2 Dependence on renal dialysis; Z93.0 Tracheostomy status; Z88.6 Allergy status to analgesic agent; X58.XXXA Exposure to other specified factors, initial encounter; Y93.89 Activity, other specified; Y92.89 Other specified places as the place of occurrence of the external cause; Y99.9 Unspecified external cause status
CPT/HCPCS: 70450; 71100; 80048; 80076; 83605; 85025; 87040 ×2; 93005; 96365; 99285; A4606; G0480; J1953; J7030; J7040; Z7610

== ENCOUNTER 2016-10-07 01:58 | Inpatient (IN) | payer BC, MEDICAID ==
[~2016-10-07] VITALS: Ht 167.6 cm; Wt 94.3 kg
[2016-10-07] VITALS (8 sets, daily range): BP systolic 116–146; BP diastolic 56–85
--- NOTE | 2016-10-07 02:22 | NUR ---
PT BIB RA WITH A C/O SOB. PT IS ON A NRB MASK OVER TRACH. PT IS AA&O X4. PT STATED THAT HE VOMITTED EARLIER AND NOW HAS PAIN. PT DOES NOT APPEAR TO BE SOB AT THIS TIME. PT IS WATCHING TV AND STANDING AT THE BEDSIDE. PT WAS ASKED TO SIT ON THE BED, RATHER THAN STAND AT THE BEDSIDE.
--- NOTE | 2016-10-07 02:23 | NUR ---
DR. HENSON IS AT THE BEDSIDE.
[2016-10-07] MEDS ORDERED: HYDROCODONE/APAP 10/325MG 1 EA TABLET ONE (02:26)
[2016-10-07] MEDS ORDERED: ASPIRIN 81 MG TAB.CHEW ONE (02:26)
[2016-10-07] MEDS ORDERED: NITROGLYCERIN PACKET 1 GM PACKET ONE (02:26)
[2016-10-07] MEDS ORDERED: ASPIRIN 81 MG TAB.CHEW PO ONE (02:30)
[2016-10-07] MEDS ORDERED: HYDROCODONE/APAP 10/325MG 1 EA TABLET PO ONE (02:30)
[2016-10-07] MEDS ORDERED: NITROGLYCERIN PACKET 1 GM PACKET TD ONE (02:30)
--- NOTE | 2016-10-07 02:32 | NUR ---
XRAY IN PROGRESS AT THE BEDSIDE.
--- NOTE | 2016-10-07 02:53 | NUR ---
PT IS ASKING FOR DILAUDID. PT WAS REMINDED THAT HE JUST REC'D NORCO.
--- NOTE | 2016-10-07 03:05 | NUR ---
RT IS AT THE BEDSIDE. PT RECEIVING NEW INNER CANULA. PT STATED THAT HE TOOK HIS OUT AT THE FACILITY HE CAME FROM.
--- NOTE | 2016-10-07 03:08 | NUR ---
PT PULLED OUT NEW INNER CANULA STATING: "I CAN'T BREATHE WITH IT". DR. HENSON IS AWARE.
[2016-10-07 03:14] LABS: BASOPHILS # (AUTO) 0.1 /CMM (0.0-0.2); BASOPHILS % (AUTO) 0.6 % (0.0-2.0); EOSINOPHILS # (AUTO) 0.2 /CMM (0.0-0.7); EOSINOPHILS % (AUTO) 2.4 % (0.0-6.0); HEMATOCRIT 23 % (39-51); HEMOGLOBIN 7.5 g/dL (13.5-17.5); LYMPHOCYTES # (AUTO) 1.7 /CMM (0.8-4.8); LYMPHOCYTES % (AUTO) 18.2 % (20.0-44.0); MEAN CORPUSCULAR HEMOGLOBIN 30 PG (26.0-33.0); MEAN CORPUSCULAR HGB CONC 32 g/dl (31.0-36.0); MEAN CORPUSCULAR VOLUME 93 fL (80-96); MONOCYTES # (AUTO) 0.7 /CMM (0.1-1.30); MONOCYTES % (AUTO) 7.6 % (2.0-12.0); NEUTROPHILS # (AUTO) 6.7 /CMM (1.8-8.9); NEUTROPHILS % (AUTO) 71.2 % (43.0-81.0); PLATELET COUNT (AUTO) 222 /CMM (150-450); RDW COEFFICIENT OF VARIATION 15.6 (11.5-15.0); WHITE BLOOD COUNT (AUTO) 9.5 K/uL (4.3-11.0)
[2016-10-07 03:22] LABS: CALCIUM, SERUM 8.1 mg/dL (8.5-10.1); POTASSIUM 5.6 mmol/L (3.5-5.1)
[2016-10-07 03:28] LABS: TROPONIN I 0.035 ng/mL (0.00-0.056)
--- NOTE | 2016-10-07 03:30 | NUR ---
PT WAS SUCTIONED X2.
[2016-10-07 03:31] LABS: INR 1.07 (0.87-1.13); PROTHROMBIN TIME 11.5 SECS (9.5-12.7)
[2016-10-07 03:34] LABS: ABG BASE EXCESS -5.1 mmol/L; ABG OXYGEN SATURATION 80.1 % (92.0-98.5); ABG PCO2 31.7 mmHg (35.0-45.0); ABG PH 7.398 (7.350-7.450); ABG PO2 48.5 mmHg (75.0-100.0); ABG TOTAL HEMOGLOBIN 8.4 G/dL (13.5-18.0); AaDO2 63.3 mmHg; COHb 0.7 % (0.5-1.5); MetHb 0.7 % (0.0-1.5); SITE, ABG Right Radial; VENT MODE, BG ROOM AIR
[2016-10-07 03:36] LABS: ALBUMIN 3.2 g/dL (3.4-5.0); BILIRUBIN,DIRECT 0.1 mg/dL (0.0-0.2); BILIRUBIN,TOTAL 0.4 mg/dL (0.2-1.0); TOTAL PROTEIN, SERUM 6.7 g/dL (6.4-8.2)
[2016-10-07 04:36] LABS: MAGNESIUM 1.8 mg/dL (1.8-2.4); PHOSPHORUS 3.9 mg/dL (2.5-4.9)
--- NOTE | 2016-10-07 05:50 | NUR ---
MS RN NOTE RECEIVED PATIENT AWAKE AND ALERT VIA [facility] FROM ER. TRACH MASK IN PLACE WITH 5L OF O2 AND 28% COOL AEROSOL. OXYGEN SATURATION AT THIS TIME IS 97%. NO DISTRESS NOTED. IC SITE TO RIGHT WRIST INTACT, WITH NO REDNESS NOTED. DENZEL CATH TO RCW IN PLACE. FISTULA TO ALBINO. ORIENTED PATIENT TO ROOM AND TO UNIT. SIN INTACT WITH NO BREAKDOWN OR BRUISING NOTED. ALL BELONGINGS CHECKED AND ACCOUNTED FOR. DR. RAZO NOTIFIED OF PT'S ARRIVAL TO UNIT. NEW ORDERS RECEIVED AND CARRIED OUT. ONE UNIT OF PRBC'S TO BE TRANSFUSED WHEN PATIENT RECEIVES DIALYSIS. PER MD, PATIENT IS NOT TO HAVE DILAUDID. NORCO ONLY. PATIENT CONTINUES TO REMOVE INNER TRACH CANNULA. CLEAN, DRY , AND COMFORTABLE AT THIS TIME. BED LOCKED AND IN LOWEST POSITION. SIDE RAILS UP, CALL LIGHT WITHIN REACH. WILL CONTINUE TO MONITOR.
--- NOTE | 2016-10-07 07:30 | NUR ---
MS NURSES OPENING NOTES RECEIVED REPORT FROM NIGHT NURSE. PT IS RESTING IN BED, SIDE RAILS X2, SITTING UPRIGHT.
[2016-10-07] MEDS: HYDROCODONE/APAP 5/325MG 1 EACH TABLET PO PRN ×2 (08:25→13:49)
--- NOTE | 2016-10-07 08:26 | NUR ---
MS NURSE'S NOTE PATIENT COMPLAINED OF LEFT ARM PAIN 7/10 AND GAVE PT PRN NORCO.
[2016-10-07] MEDS ORDERED: TRAMADOL HCL 50 MG TABLET PO PRN (09:00)
[2016-10-07] MEDS ORDERED: LORAZEPAM 1 MG TABLET PO PRN (09:00)
[2016-10-07] MEDS: AMLODIPINE BESYLATE 5 MG TABLET PO SCH ×2 (09:00→17:00)
[2016-10-07] MEDS: METOPROLOL TARTRATE 25 MG TABLET PO SCH ×2 (09:00→21:00)
--- NOTE | 2016-10-07 09:00 | NUR ---
MS MED HOLD NOTE HOLD BP MEDS DUE TO PATIENT HAVING DIALYSIS TODAY.
[2016-10-07] MEDS: FOLIC ACID 1 MG TABLET PO SCH (11:19)
[2016-10-07] MEDS: PANTOPRAZOLE 40 MG TABLET.DR PO SCH (11:20)
[2016-10-07] MEDS: risperiDONE 1 MG TABLET PO SCH ×2 (11:22→19:38)
[2016-10-07] MEDS: AMIODARONE HCL 200 MG TABLET PO SCH (11:25)
[2016-10-07] MEDS: ALBUTEROL FS 2.5 MG/3 ML VIAL.NEB NEB SCH ×4 (11:28→22:56)
[2016-10-07] MEDS ORDERED: IPRATROPIUM NEB FS 0.5 MG/2.5 ML AMPUL.NEB NEB SCH (11:30)
[2016-10-07] MEDS: IPRATROPIUM NEB FS 0.5 MG/2.5 ML AMPUL.NEB NEB SCH ×4 (11:30→22:56)
[2016-10-07] MEDS ORDERED: LIDO30AD10 TP (11:59)
[2016-10-07] MEDS: FLUTICASONE/SALMETEROL DISKUS IH SCH ×2 (12:07→21:21)
[2016-10-07] MEDS: diphenhydrAMINE HCL 50 MG/ML VIAL IV PRN ×2 (12:17→19:39)
[2016-10-07] MEDS ORDERED: PHENYTOIN SUSP UDC 100 MG/4 ML UDC PO SCH (12:30)
[2016-10-07] MEDS ORDERED: BLOOD IV SET 1 EA INFUS.SET MC ONE (12:31)
[2016-10-07] MEDS ORDERED: IV NS 0.9% 1,000 ML ONE (12:32)
[2016-10-07] MEDS: CALCIUM ACETATE 667 MG TABLET PO SCH ×2 (12:39→19:38)
[2016-10-07] MEDS: hydrALAZINE HCL 25 MG TABLET PO SCH ×2 (13:00→21:00)
[2016-10-07] MEDS ORDERED: LEVE500T20 PO (15:30)
[2016-10-07] MEDS ORDERED: PHEN300C6 PO (17:02)
--- NOTE | 2016-10-07 19:05 | NUR ---
RN NOTE RECEIVED REPORT. PT AAOX4, ON TRACE MASK AT 5L. NO S/S OF ANY DISTRESS AT THIS TIME. NO C/O PAIN OR DISCOMFORT. IV INTACT AND PATENT. CALL LIGHT IN REACH, WILL CONT TO MONITOR.
[2016-10-07] MEDS: LIDOCAINE 5% (PATCH) 1 EA PATCH TP SCH (19:38)
[2016-10-07] MEDS: LEVETIRACETAM SOL (5 ML) 100 MG/ML UDC PO SCH (19:38)
--- NOTE | 2016-10-07 19:38 | NUR ---
MS CLOSING NOTES GAVE REPORT TO NIGHT NURSE. PATIENT IS RESTING IN BED, SIDE RAILS UP X2, BED IN LOCKED POSITION. NO SIGNS OF DISTRESS.
[2016-10-07] MEDS: ZOLPIDEM TARTRATE 5 MG TABLET PO SCH (21:26)
[2016-10-07] MEDS: ATORVASTATIN 10 MG TABLET PO SCH (21:26)
[2016-10-07] MEDS ORDERED: LEVETIRACETAM SOL (5 ML) 100 MG/ML UDC PO SCH ×2 (22:00)
[2016-10-07] MEDS ORDERED: LEVETIRACETAM (250 MG) 250 MG TABLET PO SCH ×2 (22:00)
[2016-10-07] MEDS ORDERED: PHENYTOIN EXTENDED RELEASE 100 MG CAPSULE PO SCH (22:00)
[2016-10-08] MEDS: ALBUTEROL FS 2.5 MG/3 ML VIAL.NEB NEB SCH ×6 (02:33→21:58)
[2016-10-08] MEDS: IPRATROPIUM NEB FS 0.5 MG/2.5 ML AMPUL.NEB NEB SCH ×6 (02:33→21:58)
[2016-10-08] MEDS: diphenhydrAMINE HCL 50 MG/ML VIAL IV PRN ×4 (02:42→23:55)
--- NOTE | 2016-10-08 04:01 | NUR ---
RN NOTE PRN NORCO GIVEN FOR LEAH. WILL MONITOR FOR EFFECTIVENESS.
[2016-10-08] MEDS: hydrALAZINE HCL 25 MG TABLET PO SCH ×3 (04:54→22:12)
--- NOTE | 2016-10-08 06:19 | NUR ---
RN NOTE NO SIGNIFICANT CHANGES T/O SHIFT. PT SLEPT WELL AT NIGHT. HAD GOOD URINARY OUTPUT. NO S/S OF ANY DISTRESS AT THIS TIME. BREATHING NON-LABORED AND EVEN. TELE SHOWS V PACING IN 'S. SAFETY MEASURES RENDERED. CALL LIGHT IN REACH. WILL F/U WITH DAY SHIFT FOR AGATHA. Addendum: 10/08/16 at 0626 by ADRIANNA MALDONADO RN WRONG PATIENT ^^
--- NOTE | 2016-10-08 06:28 | NUR ---
RN NOTE NO SIGNIFICANT CHANGES OVERNIGHT. PT APPEARS COMFORTABLE. NO S/S OF ANY DISTRESS AT THIS TIME. TRACHE MASK ATTACHED AT 5L, SATTING WELL. SUCTIONING PROVIDED T/O SHIFT. IVINTACT AND PATENT. ALL NEEDS ATTENDED TO, WILL F/U WITH DAY SHIFT FOR AGATHA.
--- NOTE | 2016-10-08 07:45 | NUR ---
MS RN OPENING NOTE PATIENT IS ALERT AND ORIENTED x3. NO PAIN AT THIS TIME. NO SOB OR DISTRESS NOTED. IV INTACT AND PATENT, NO REDNESS OR SWELLING NOTED. SAFETY MEASURES IMPLEMENTED. CALL LIGHT WITHIN REACH. POSSIBLE HEMODIALYSIS TODAY. WILL CONTINUE TO MONITOR
[2016-10-08 08:00] VITALS: BP 102/60
--- NOTE | 2016-10-08 08:30 | NUR ---
MS RN NOTE WHEN ADMINISTERING MEDICATIONS TO PATIENT IN NEXT BED (310-2), PATIENT BECAME AGGRESSIVE THROWING THINGS AROUND IN THE ROOM, CALLING THE OTHER PATIENT NAMES AND CURSING AT HIM. i INFORMED PATIENT NOT TO CURSE AT THE OTHER PATIENT THAT i WOULD ASSIST HIM IN HIS NURSING CARE NEEDS AND MEDICATION. AFTER A FEW MINUTES PATIENT CALMED DOWN, AND APOLOGIZED. WILL CONTINUE TO MONITOR FOR BEHAVIOR.
[2016-10-08] MEDS: PHENYTOIN SUSP UDC 100 MG/4 ML UDC PO SCH ×2 (08:43→17:12)
[2016-10-08] MEDS: LEVETIRACETAM SOL (5 ML) 100 MG/ML UDC PO SCH ×4 (08:43→17:12)
[2016-10-08] MEDS: risperiDONE 1 MG TABLET PO SCH ×2 (08:45→17:12)
[2016-10-08] MEDS: FOLIC ACID 1 MG TABLET PO SCH (08:46)
[2016-10-08] MEDS: PANTOPRAZOLE 40 MG TABLET.DR PO SCH (08:46)
[2016-10-08] MEDS: CALCIUM ACETATE 667 MG TABLET PO SCH ×4 (08:47→17:12)
[2016-10-08] MEDS: ASPIRIN 325 MG TABLET PO SCH (08:47)
[2016-10-08] MEDS: AMLODIPINE BESYLATE 5 MG TABLET PO SCH ×2 (08:48→17:00)
[2016-10-08] MEDS: FLUTICASONE/SALMETEROL DISKUS IH SCH ×2 (08:49→22:06)
[2016-10-08] MEDS: AMIODARONE HCL 200 MG TABLET PO SCH (09:00)
[2016-10-08] MEDS: METOPROLOL TARTRATE 25 MG TABLET PO SCH ×2 (09:00→22:13)
--- NOTE | 2016-10-08 09:00 | NUR ---
MS RN NOTE HELD PATIENT'S BLOOD PRESSURE MEDICATION, WILL RECEIVE HEMODIALYSIS TODAY.
[2016-10-08] MEDS: HYDROCODONE/APAP 5/325MG 1 EACH TABLET PO PRN (10:12)
[2016-10-08 16:00] VITALS: BP 133/81
--- NOTE | 2016-10-08 16:00 | NUR ---
MS RN NOTE PATIENT IV WAS LEAKING. REMOVED AND STARTED A NEW ONE 22G ON RIGHT WRIST. INTACT AND PATENT NO REDNESS OR SWELLING NOTED.
[2016-10-08] MEDS: LIDOCAINE 5% (PATCH) 1 EA PATCH TP SCH (17:04)
--- NOTE | 2016-10-08 18:22 | NUR ---
MS RN CLOSING NOTE PATIENT IS ALERT AND ORIENTED x4. NO PAIN AT THIS TIME. NO SOB OR DISTRESS NOTED. ALL DUE MEDICATIONS GIVEN ORDERED. SAFETY MEASURES IMPLEMENTED. CALL LIGHT WITHIN REACH AT ALL TIMES. TRACH ON COOL MIST. SUCTIONED NEEDED. AWAITING HEMODIALYSIS TODAY. IV INTACT AND PATENT NO REDNESS OR SWELLING NOTED. WILL ENDORSE TO MINER PLACER NURSE
--- NOTE | 2016-10-08 19:20 | NUR ---
MS RN NOTES RECEIVED PT SLEEPING IN BED, AROUSES EASILY. NO DISTRESS, NO SOB AT THIS TIME. TRACH IS INATCT AND PATENT ON COOL AEROSOL. ISAIAH WELL. IV SITE IN RIGHT WRIST INTACT AND PATENT. NO S/S OF INFILTRATION NOTED. NO C/O PAIN OR DISCOMFORT AT THIS TIME. ALL NEEDS ATTENDED AND MET. KEPT COMFORTABLE. SAFETY PRECAUTIONS OBSERVED. CALL LIGHT WITHIN REACH. WILL CONTINUE TO MONITOR,
[2016-10-08 20:00] VITALS: BP 122/72
--- NOTE | 2016-10-08 20:22 | NUR ---
PER DIALYSIS NURSE, DIALYSIS IS NOT GONNA BE DONE TODAY, IT WILL BE DONE TOMORROW, PER DIALYSIS NURSE IS AWARE. CHARGE NURSE TE AWARE.
[2016-10-08] MEDS ORDERED: IPRATROPIUM NEB FS 0.5 MG/2.5 ML AMPUL.NEB ONE (21:56)
[2016-10-08 22:00] VITALS: BP 122/72
[2016-10-08] MEDS: ATORVASTATIN 10 MG TABLET PO SCH (22:11)
[2016-10-08] MEDS: ZOLPIDEM TARTRATE 5 MG TABLET PO SCH (22:14)
[2016-10-09] MEDS: IPRATROPIUM NEB FS 0.5 MG/2.5 ML AMPUL.NEB NEB SCH ×6 (03:32→23:43)
[2016-10-09] MEDS: ALBUTEROL FS 2.5 MG/3 ML VIAL.NEB NEB SCH ×6 (03:32→23:43)
[2016-10-09] MEDS: hydrALAZINE HCL 25 MG TABLET PO SCH ×3 (05:12→20:19)
[2016-10-09] MEDS: diphenhydrAMINE HCL 50 MG/ML VIAL IV PRN ×3 (06:18→20:20)
--- NOTE | 2016-10-09 06:20 | NUR ---
DIALYSIS NURSE BILL AT BEDSIDE.
--- NOTE | 2016-10-09 06:52 | NUR ---
MS RN NOTES PT IN BED , COMFORTABLE. NO DISTRESS, NO SOB AT THIS TIME. TRACH IS INTACT AND PATENT ON COOL AEROSOL. ISAIAH WELL. SUUCTIONED PRN. IV SITE IN RIGHT WRIST INTACT AND PATENT. NO S/S OF INFILTRATION NOTED. NO C/O PAIN OR DISCOMFORT AT THIS TIME. DIALYSIS NURSE BILL AT BEDSIDE. ALL NEEDS ATTENDED AND MET. KEPT COMFORTABLE. SAFETY PRECAUTIONS OBSERVED. CALL LIGHT WITHIN REACH. WILL ENDORSE TO NEXT SHIFT FOR AGATHA.
--- NOTE | 2016-10-09 07:30 | NUR ---
MS RN AM NOTES PT IN BED , AAO X 3, WITH TRACH MASK AT 5LPM, SHILEY #6, NOT IN ANY DISTRESS, ONGOING HD, TRACH IS INTACT AND PATENT ON COOL AEROSOL. ISAIAH WELL. SUCTION PRN. IV SITE IN RIGHT WRIST FLUSHES WELL, SITE CLEAR, DENZEL RCW, AMD ALBINO AV SHUNT, THRILL PRESENT. NO C/O PAIN OR DISCOMFORT AT THIS TIME. AMB WITH ASSIST. RENAL DIET. SAFETY PRECAUTIONS OBSERVED. CALL LIGHT WITHIN REACH. WILL CONT TO MONITOR.
[2016-10-09 08:00] VITALS: BP_SYST 153; BP_SYST 157; BP_DIAS 63; BP_DIAS 87
[2016-10-09] MEDS: CALCIUM ACETATE 667 MG TABLET PO SCH ×3 (08:00→17:00)
[2016-10-09] MEDS: METOPROLOL TARTRATE 25 MG TABLET PO SCH ×2 (09:00→20:19)
[2016-10-09] MEDS: AMLODIPINE BESYLATE 5 MG TABLET PO SCH ×2 (09:00→16:59)
[2016-10-09] MEDS: PHENYTOIN SUSP UDC 100 MG/4 ML UDC PO SCH ×2 (09:00→16:58)
--- NOTE | 2016-10-09 09:30 | NUR ---
MS RN NOTE WILL ADMINISTER MEDICATIONS POST HD.
--- NOTE | 2016-10-09 09:35 | NUR ---
MS RN NOTES HD COMPLETED. 3 LITERS OUT.
[2016-10-09] MEDS: MUPIROCIN OINT 2% 22 GM TUBE SCH ×2 (10:00→20:21)
[2016-10-09] MEDS: ASPIRIN 325 MG TABLET PO SCH (10:34)
[2016-10-09] MEDS: AMIODARONE HCL 200 MG TABLET PO SCH (10:34)
[2016-10-09] MEDS: LEVETIRACETAM SOL (5 ML) 100 MG/ML UDC PO SCH ×3 (10:37→16:58)
[2016-10-09] MEDS: FOLIC ACID 1 MG TABLET PO SCH (10:38)
[2016-10-09] MEDS: PANTOPRAZOLE 40 MG TABLET.DR PO SCH (10:39)
[2016-10-09] MEDS: risperiDONE 1 MG TABLET PO SCH ×2 (10:40→16:58)
--- NOTE | 2016-10-09 10:45 | NUR ---
MS RN NOTES PER DR. Niles WEISS TO DO DILANTIN LEVEL [LAB].
[2016-10-09] MEDS: FLUTICASONE/SALMETEROL DISKUS IH SCH ×2 (11:06→20:20)
--- NOTE | 2016-10-09 11:08 | NUR ---
Dilantin held due to elevated level 30 and phoslo not given because PT already ate early and was on dialysis, thus close to give pm dose
[2016-10-09] MEDS: HYDROCODONE/APAP 5/325MG 1 EACH TABLET PO PRN ×2 (11:53→20:19)
--- NOTE | 2016-10-09 14:10 | NUR ---
MS RN NOTES DR. Niles WEISS, INFORMED OF DILANTIN LEVEL 30.5.
[2016-10-09 16:00] VITALS: BP 90/56
[2016-10-09] MEDS: LIDOCAINE 5% (PATCH) 1 EA PATCH TP SCH (16:58)
[2016-10-09 18:00] VITALS: BP 90/56
--- NOTE | 2016-10-09 18:50 | NUR ---
MS RN CLOSING NOTES PT RESTING IN BED , AAO X 3, WITH TRACH MASK AT 5LPM, SHILEY #6, NOT IN ANY DISTRESS, ONGOING HD, TRACH IS INTACT AND PATENT ON COOL AEROSOL. ISAIAH WELL. SUCTION PRN. IV SITE IN RIGHT WRIST FLUSHES WELL, SITE CLEAR, DENZEL RCW, AND ALBINO AV SHUNT, THRILL PRESENT. NO C/O PAIN OR DISCOMFORT AT THIS TIME. AMB WITH ASSIST. RENAL DIET. SAFETY PRECAUTIONS OBSERVED. ALL NEEDS MET. NO OTHER SIGNIFICANT CHANGE IN CONDITION. CALL LIGHT WITHIN REACH. WILL ENDORSE TO NEXT SHIFT FOR AGATHA.
--- NOTE | 2016-10-09 19:30 | NUR ---
MS RN NOTE: PATIENT RESTING IN BED, NO ACUTE DISTRESS NOTED. BREATHING EVEN AND UNLABORED, NO SOB IN PLACE. TRACH IN PLACE WITH COOL AEROSOL. HL TO RIGHT WRIST IN PLACE. DENZEL CATH TO RIGHT CHEST WALL IN PLACE, NO BLEEDING NOTED. AV SHUNT TO ALBINO IN PLACE, NO BLEEDING NOTED. ISOLATION PRECAUTIONS OBSERVED. BED LOCKED AND IN LOWEST POSITION, CALL LIGHT IN REACH. WILL CONTINUE TO MONITOR.
[2016-10-09 20:00] VITALS: BP 122/77
--- NOTE | 2016-10-09 20:20 | NUR ---
MS RN NOTE: PATIENT COMPLAINS OF PAIN 7/10 TO ABDOMEN, NORCO 5/325MG ORAL GIVEN PER MD ORDER. PATIENT ALSO COMPLAINS OF ITCHINESS, BENADRYL 25MG IV GIVEN PER MD ORDER. WILL CONTINUE TO MONITOR.
[2016-10-09] MEDS: ATORVASTATIN 10 MG TABLET PO SCH (21:14)
[2016-10-09] MEDS: ZOLPIDEM TARTRATE 5 MG TABLET PO SCH (21:14)
[2016-10-09] MEDS ORDERED: HYDROMORPHONE 1 MG/1 ML DISP.SYRIN ONE (22:18)
[2016-10-09] MEDS: HYDROMORPHONE 1 MG/1 ML DISP.SYRIN IV PRN (22:29)
--- NOTE | 2016-10-09 22:30 | NUR ---
MS RN NOTE: PATIENT COMPLAINS THAT HE STILL HAS SEVERE PAIN TO ABDOMEN AND THAT NORCO DOES NOT HELP WITH PAIN. PATIENT REQUESTING IF HE CAN HAVE DILAUDID, INFORMED THAT IT SHOWS THAT HE IS ALLERGIC TO MORPHINE. PATIENT CLARIFIED THAT MORPHINE GIVES HIM AN UPSET STOMACH IF TAKEN. CALLED MD, SPOKE TO FEE CLERK MD, DR. ESCAMILLA. RECEIVED ORDERS FOR DILAUDID 1MG IV. ORDER NOTED AND CARRIED OUT. PATIENT GIVEN DILAUDID 1MG IV PER MD ORDER. WILL CONTINUE TO MONITOR.
[2016-10-10] MEDS: diphenhydrAMINE HCL 50 MG/ML VIAL IV PRN ×4 (02:24→20:50)
--- NOTE | 2016-10-10 02:30 | NUR ---
MS RN NOTE: PATIENT COMPLAINS OF ITCHINESS, BENADRYL 25MG IV GIVEN PER MD ORDER. WILL CONTINUE TO MONITOR.
[2016-10-10] MEDS: IPRATROPIUM NEB FS 0.5 MG/2.5 ML AMPUL.NEB NEB SCH ×6 (03:44→23:33)
[2016-10-10] MEDS: ALBUTEROL FS 2.5 MG/3 ML VIAL.NEB NEB SCH ×6 (03:45→23:33)
[2016-10-10] MEDS ORDERED: HYDROMORPHONE 1 MG/1 ML DISP.SYRIN ONE (04:50)
[2016-10-10] MEDS: hydrALAZINE HCL 25 MG TABLET PO SCH ×3 (04:59→21:23)
[2016-10-10] MEDS: HYDROMORPHONE 1 MG/1 ML DISP.SYRIN IV PRN ×3 (04:59→17:12)
--- NOTE | 2016-10-10 05:00 | NUR ---
MS RN NOTE: PATIENT COMPLAINS OF ABDOMINAL PAIN 02/28, DILAUDID 1MG IV GIVEN PER MD ORDER. WILL CONTINUE TO MONITOR.
--- NOTE | 2016-10-10 06:00 | NUR ---
MS RN NOTE: PATIENT RESTING IN BED, NO ACUTE DISTRESS NOTED. BREATHING EVEN AND UNLABORED, NO SOB IN PLACE. TRACH IN PLACE WITH COOL AEROSOL. HL TO RIGHT WRIST IN PLACE. DENZEL CATH TO RIGHT CHEST WALL IN PLACE AND AV SHUNT TO ALBINO IN PLACE, NO BLEEDING NOTED. ISOLATION PRECAUTIONS OBSERVED. BED LOCKED AND IN LOWEST POSITION, CALL LIGHT IN REACH. WILL ENDORSE TO DAY NURSE TO CONTINUE WITH PLAN OF CARE.
[2016-10-10 08:00] VITALS: BP 121/83
--- NOTE | 2016-10-10 08:00 | NUR ---
RECEIVED PT. IN AM,ORIENTED X 3.AIR VALVE REPAIRER BRYSON NUGENT.
[2016-10-10] MEDS: LEVETIRACETAM SOL (5 ML) 100 MG/ML UDC PO SCH ×3 (08:50→17:11)
[2016-10-10] MEDS: PANTOPRAZOLE 40 MG TABLET.DR PO SCH (08:50)
[2016-10-10] MEDS: AMIODARONE HCL 200 MG TABLET PO SCH (08:52)
[2016-10-10] MEDS: FOLIC ACID 1 MG TABLET PO SCH (08:52)
[2016-10-10] MEDS: CALCIUM ACETATE 667 MG TABLET PO SCH ×3 (08:52→17:11)
[2016-10-10] MEDS: risperiDONE 1 MG TABLET PO SCH ×2 (08:52→17:11)
[2016-10-10] MEDS: ASPIRIN 325 MG TABLET PO SCH (08:52)
[2016-10-10] MEDS: PHENYTOIN SUSP UDC 100 MG/4 ML UDC PO SCH ×2 (08:54→16:54)
[2016-10-10] MEDS: METOPROLOL TARTRATE 25 MG TABLET PO SCH ×2 (08:54→20:51)
[2016-10-10] MEDS: MUPIROCIN OINT 2% 22 GM TUBE SCH ×2 (08:58→21:00)
[2016-10-10] MEDS: AMLODIPINE BESYLATE 5 MG TABLET PO SCH ×2 (09:00→16:55)
[2016-10-10] MEDS: FLUTICASONE/SALMETEROL DISKUS IH SCH ×2 (09:00→21:23)
[2016-10-10] MEDS: HYDROCODONE/APAP 5/325MG 1 EACH TABLET PO PRN ×2 (14:02→20:52)
[2016-10-10 16:00] VITALS: BP 95/55
[2016-10-10] MEDS: LIDOCAINE 5% (PATCH) 1 EA PATCH TP SCH (17:10)
--- NOTE | 2016-10-10 18:00 | NUR ---
MEDICATED X 2 WITH BENADRYL,DILAUDID AND X1 WITH NORCO FOR STATED LT. RIB PAIN.PLEASNAT AND COOPERATIVE,VS STABLE.
[2016-10-10 20:00] VITALS: BP 146/83
--- NOTE | 2016-10-10 20:05 | NUR ---
RCVD REPORT...NO C/O NOTED...CALL LIGHT AVAILABLE AND W/I REACH...RESPIRATIONS EASY AND UNLABORED.
[2016-10-10] MEDS ORDERED: MUPIROCIN OINT 2% 22 GM TUBE SCH (21:00)
[2016-10-10] MEDS: ATORVASTATIN 10 MG TABLET PO SCH (21:22)
[2016-10-10] MEDS: ZOLPIDEM TARTRATE 5 MG TABLET PO SCH (21:23)
[2016-10-11] MEDS: diphenhydrAMINE HCL 50 MG/ML VIAL IV PRN ×3 (02:53→17:30)
[2016-10-11] MEDS: ALBUTEROL FS 2.5 MG/3 ML VIAL.NEB NEB SCH ×4 (03:50→14:42)
[2016-10-11] MEDS: IPRATROPIUM NEB FS 0.5 MG/2.5 ML AMPUL.NEB NEB SCH ×4 (03:50→14:41)
[2016-10-11] MEDS: HYDROCODONE/APAP 5/325MG 1 EACH TABLET PO PRN (04:04)
[2016-10-11] MEDS: HYDROMORPHONE 1 MG/1 ML DISP.SYRIN IV PRN ×2 (05:10→12:14)
[2016-10-11] MEDS: hydrALAZINE HCL 25 MG TABLET PO SCH ×2 (05:21→15:30)
[2016-10-11] MEDS: PANTOPRAZOLE 40 MG TABLET.DR PO SCH (06:59)
[2016-10-11 07:04] LABS: BASOPHILS % (AUTO) 0.7 % (0.0-2.0); EOSINOPHILS # (AUTO) 0.5 /CMM (0.0-0.7); EOSINOPHILS % (AUTO) 7.5 % (0.0-6.0); HEMATOCRIT 32 % (39-51); HEMOGLOBIN 10.3 g/dL (13.5-17.5); LYMPHOCYTES % (AUTO) 14.7 % (20.0-44.0); MEAN CORPUSCULAR HEMOGLOBIN 31 PG (26.0-33.0); MEAN CORPUSCULAR HGB CONC 33 g/dl (31.0-36.0); MEAN CORPUSCULAR VOLUME 94 fL (80-96); MONOCYTES # (AUTO) 0.6 /CMM (0.1-1.30); MONOCYTES % (AUTO) 8.5 % (2.0-12.0); NEUTROPHILS # (AUTO) 4.7 /CMM (1.8-8.9); NEUTROPHILS % (AUTO) 68.6 % (43.0-81.0); PLATELET COUNT (AUTO) 188 /CMM (150-450); RED BLOOD CELL COUNT(AUTO) 3.37 MIL/uL (4.5-6.0); WHITE BLOOD COUNT (AUTO) 6.9 K/uL (4.3-11.0)
[2016-10-11 07:34] LABS: ALBUMIN 3.4 g/dL (3.4-5.0); BILIRUBIN,TOTAL 0.4 mg/dL (0.2-1.0); CALCIUM, SERUM 8.2 mg/dL (8.5-10.1); CREATININE 5.4 mg/dL (0.6-1.3); PHOSPHORUS 5.9 mg/dL (2.5-4.9)
--- NOTE | 2016-10-11 07:47 | NUR ---
RN AM NOTES PATIENT RECEIVED ALERT AND ORIENTED X3, ASLEEP BUT EASILY AROUSABLE. NO COMPLAINTS OF PAIN OR DISCOMFORT AT THIS TIME. WILL CONTINUE TO MONITOR.
[2016-10-11 08:00] VITALS: BP 105/61
[2016-10-11] MEDS: LEVETIRACETAM SOL (5 ML) 100 MG/ML UDC PO SCH ×3 (08:48→17:16)
[2016-10-11] MEDS: AMLODIPINE BESYLATE 5 MG TABLET PO SCH ×2 (08:48→17:00)
[2016-10-11] MEDS: risperiDONE 1 MG TABLET PO SCH ×2 (08:49→17:16)
[2016-10-11] MEDS: FOLIC ACID 1 MG TABLET PO SCH (08:49)
[2016-10-11] MEDS: AMIODARONE HCL 200 MG TABLET PO SCH (08:49)
[2016-10-11] MEDS: ASPIRIN 325 MG TABLET PO SCH (08:49)
[2016-10-11] MEDS: METOPROLOL TARTRATE 25 MG TABLET PO SCH (08:50)
[2016-10-11] MEDS: PHENYTOIN SUSP UDC 100 MG/4 ML UDC PO SCH ×2 (08:50→17:16)
[2016-10-11] MEDS: CALCIUM ACETATE 667 MG TABLET PO SCH ×3 (08:50→17:16)
[2016-10-11] MEDS: FLUTICASONE/SALMETEROL DISKUS IH SCH (08:58)
[2016-10-11] MEDS: MUPIROCIN OINT 2% 22 GM TUBE SCH (08:58)
[2016-10-11] MEDS ORDERED: LEVE100S PO (10:14)
[2016-10-11] MEDS ORDERED: Aspirin PO (10:14)
--- NOTE | 2016-10-11 15:30 | NUR ---
PATIENT WAS ASLEEP DURING MED PASS, DID NOT WANT TO WAKE UP TO TAKE MEDS. OKAY WITH TAKING MEDS NOW.
[2016-10-11 16:00] VITALS: BP 91/55
[2016-10-11] MEDS: LIDOCAINE 5% (PATCH) 1 EA PATCH TP SCH (16:30)
[2016-10-11 17:00] VITALS: BP 138/86
--- NOTE | 2016-10-11 17:36 | NUR ---
PATIENT REFUSED LIDODERM PATCH
--- NOTE | 2016-10-11 18:14 | NUR ---
TREATMENT PLANT OPERATOR NOTES PATIENT LEFT IN STABLE CONDITION ON [facility] WITH PERSONAL BELONGINGS ACCOMPANIED BY TWO PERSONAL CARER. ALL NEED RENDERED. PATIENT LEFT HOSPITAL SAFELY VIA AMBULANCE. NO SOB, COMPLAINTS OF PAIN OR DISTRESS. VS: 148/86, 79, 18, 97.8, 95%.
== END 2016-10-11 18:10 | DRG 291 ==
LOC: ER 02:00 → TELE 03:53 → MED 06:35
PROVIDERS: ADMIT Internal Medicine; ATTEND Internal Medicine Nephrology
PROC: 30233N1 Transfusion of Nonautologous Red Blood Cells into Peripheral Vein, Percutaneous Approach (ICD-10-PCS; principal; 2016-10-07)
PROC: 5A1D60Z (ICD-10-PCS; 2016-10-07)
DX: I13.2 Hypertensive heart and chronic kidney disease with heart failure and with stage 5 chronic kidney disease, or end stage renal disease (principal); J81.0 Acute pulmonary edema; N18.6 End stage renal disease; J96.21 Acute and chronic respiratory failure with hypoxia; I50.33 Acute on chronic diastolic (congestive) heart failure; I48.91 Unspecified atrial fibrillation; K21.9 Gastro-esophageal reflux disease without esophagitis; Z86.73 Personal history of transient ischemic attack (TIA), and cerebral infarction without residual deficits; G89.4 Chronic pain syndrome; Z76.5 Malingerer [conscious simulation]; E87.5 Hyperkalemia; E78.5 Hyperlipidemia, unspecified; G40.909 Epilepsy, unspecified, not intractable, without status epilepticus; Z99.2 Dependence on renal dialysis; Z99.81 Dependence on supplemental oxygen; Z79.899 Other long term (current) drug therapy; Z93.0 Tracheostomy status; I48.0 Paroxysmal atrial fibrillation; I48.2 Chronic atrial fibrillation; J45.909 Unspecified asthma, uncomplicated; I25.10 Atherosclerotic heart disease of native coronary artery without angina pectoris; D50.9 Iron deficiency anemia, unspecified; F17.210 Nicotine dependence, cigarettes, uncomplicated; E66.9 Obesity, unspecified; Z68.33 Body mass index [BMI] 33.0-33.9, adult; G47.33 Obstructive sleep apnea (adult) (pediatric); J44.9 Chronic obstructive pulmonary disease, unspecified; M19.90 Unspecified osteoarthritis, unspecified site
CPT/HCPCS: 31720; 36415; 36600; 71010-TC; 73030-TC; 80048-TC; 80053-TC; 80076-TC; 80185-TC; 82803-TC; 83735-TC; 83880; 84100-TC; 84484-TC; 85025-TC; 85730-TC; 86850-TC; 86921-TC; 87081-TC; 90935-TC; 94640-TC; 94799-TC; A4606; A4623; J1170; J1200; J1953; J7030; P9016-BL; Z7610

== ENCOUNTER 2016-10-13 09:36 | Emergency (ER) | payer BC, MEDICAID ==
[~2016-10-13] VITALS: Ht 165.1 cm; Wt 98.9 kg
[~2016-10-13 09:36] MED LIST changes: +Aspirin PO; -LEVE1000 PO; +LEVE100S PO; +LEVE500T20 PO; -LEVE500T9 PO; -LEVE750T4 PO; +LIDO30AD10 TP; -PHEN200C5 PO
[2016-10-13 09:52] LABS: BASOPHILS % (AUTO) 0.3 % (0.0-2.0); EOSINOPHILS # (AUTO) 0.4 /CMM (0.0-0.7); EOSINOPHILS % (AUTO) 4.1 % (0.0-6.0); HEMATOCRIT 32 % (39-51); HEMOGLOBIN 10.6 g/dL (13.5-17.5); LYMPHOCYTES # (AUTO) 1.1 /CMM (0.8-4.8); LYMPHOCYTES % (AUTO) 12.3 % (20.0-44.0); MEAN CORPUSCULAR HEMOGLOBIN 31 PG (26.0-33.0); MEAN CORPUSCULAR HGB CONC 33 g/dl (31.0-36.0); MEAN CORPUSCULAR VOLUME 93 fL (80-96); MONOCYTES # (AUTO) 0.6 /CMM (0.1-1.30); MONOCYTES % (AUTO) 6.5 % (2.0-12.0); NEUTROPHILS # (AUTO) 6.8 /CMM (1.8-8.9); NEUTROPHILS % (AUTO) 76.8 % (43.0-81.0); PLATELET COUNT (AUTO) 168 /CMM (150-450); RDW COEFFICIENT OF VARIATION 15.3 (11.5-15.0); RED BLOOD CELL COUNT(AUTO) 3.42 MIL/uL (4.5-6.0); WHITE BLOOD COUNT (AUTO) 8.9 K/uL (4.3-11.0)
[2016-10-13 10:02] LABS: CALCIUM, SERUM 8.4 mg/dL (8.5-10.1); CREATININE 5.1 mg/dL (0.6-1.3); POTASSIUM 4.9 mmol/L (3.5-5.1)
[2016-10-13 10:06] LABS: PROTHROMBIN TIME 10.4 SECS (9.5-12.7)
[2016-10-13 10:08] LABS: ALBUMIN 3.6 g/dL (3.4-5.0); BILIRUBIN,DIRECT 0.1 mg/dL (0.0-0.2); BILIRUBIN,TOTAL 0.3 mg/dL (0.2-1.0); TOTAL PROTEIN, SERUM 7.7 g/dL (6.4-8.2)
--- NOTE | 2016-10-13 10:52 | NUR ---
PAGED MED RESPONSE FOR TRANSPORT ETA 30
--- NOTE | 2016-10-13 12:28 | NUR ---
PT. VERBALIZED UNDERSTANDING OF AFTERCARE INSTRUCTIONS.Patient discharged to home with med response to transport in stable condition. Written and verbal after care instructions given. Patient verbalizes understanding of instruction.
[2016-10-13 12:30] VITALS: BP 161/99
== END 2016-10-13 12:30 | disposition home or self-care (01) ==
LOC: ER 09:38
DX: R56.9 Unspecified convulsions (principal); G40.909 Epilepsy, unspecified, not intractable, without status epilepticus; K21.9 Gastro-esophageal reflux disease without esophagitis; I12.0 Hypertensive chronic kidney disease with stage 5 chronic kidney disease or end stage renal disease; N18.6 End stage renal disease; G89.4 Chronic pain syndrome; Z88.6 Allergy status to analgesic agent; Z86.73 Personal history of transient ischemic attack (TIA), and cerebral infarction without residual deficits
CPT/HCPCS: 36415; 70450-TC; 80048-TC; 80076-TC; 80185-TC; 85025-TC; 85730-TC; A4606; A4623; Z7610

== ENCOUNTER 2016-11-01 00:54 | Inpatient (IN) | payer BC, MEDICAID ==
[2016-11-01] VITALS (22 sets, daily range): BP systolic 105–167; BP diastolic 44–93
[~2016-11-01] VITALS: Ht 165.1 cm; Wt 97.1 kg
--- NOTE | 2016-11-01 01:02 | NUR ---
TO BED 6 A 46 YO MALE BIBRA WITH C/O SOB X2 DAYS. PATIENT IS AAO1-2, PER EMS PATIENT'S O2 SATURATION IS 80'S AT USUAL 6LPM COOL AEROSOL TO TRACH IN CONGRUGATE HOME. UPON ARRIVAL TO ER, PATIENT IS SATURATING GREATER THAN 95% AT 10LPM O2. KEPT HOB ELEVATED. ENCOURAGED GOOD DEEP BREATHING. MAINTAINED PATENT AIRWAY. VSS. GOWNED. PIPE LAYER HELPER ON. AWAITING FOR ER MD TERAN.
--- NOTE | 2016-11-01 02:10 | NUR ---
DR PIPER AT BEDSIDE FOR EVAL.
[2016-11-01] MEDS ORDERED: LEVOFLOXACIN 750 MG /D5W 150ML 750 MG in PREMIX 1 EA IV SCH (03:00)
[2016-11-01 03:03] LABS: ABG BASE EXCESS -9.9 mmol/L; ABG OXYGEN SATURATION 82.2 % (92.0-98.5); ABG PCO2 72.2 mmHg (35.0-45.0); ABG PO2 64.5 mmHg (75.0-100.0); ABG TOTAL HEMOGLOBIN 9.6 G/dL (13.5-18.0); AaDO2 210.8 mmHg; COHb 0.4 % (0.5-1.5); MetHb 0.4 % (0.0-1.5); O2Hb 81.5 % (94.0-97.0); SITE, ABG Right Radial
--- NOTE | 2016-11-01 03:15 | NUR ---
STARTED A SECOND IV ACCESS ON THE RIGHT HAND G20, BLOOD DRAWN AND SENT TO LAB.
--- NOTE | 2016-11-01 03:20 | NUR ---
CALLED TO ER. REQUESTED VENT FOR PATIENT POST ABG ON SIMV 12, 500, PS 10 60% +5. NO TRACH WAS NEEDED DUE TO TO CUFFED TRACHED. MD WAS NOTIFIED. BILATERAL DIM BREATH SOUNDS. SUCTIONED MOD AMOUNT OF THICK HORTON SECRETIONS. WILL CONT TO MONITOR PATIENT. Addendum: 11/01/16 at 0324 by CRISTI MACIAS RT Amended: Links added.
[2016-11-01] MEDS ORDERED: LEVOFLOXACIN 750 MG /D5W 150ML 150 ML IV ONE (03:21)
[2016-11-01] MEDS ORDERED: IV SET PRIMARY PUMP SET 1 EA INFUS.SET MC ONE ×4 (03:21→09:11)
[2016-11-01 03:27] LABS: BASOPHILS % (AUTO) 0.1 % (0.0-2.0); EOSINOPHILS # (AUTO) 0.6 /CMM (0.0-0.7); EOSINOPHILS % (AUTO) 5.3 % (0.0-6.0); HEMATOCRIT 26 % (39-51); HEMOGLOBIN 8.4 g/dL (13.5-17.5); LYMPHOCYTES # (AUTO) 1.3 /CMM (0.8-4.8); LYMPHOCYTES % (AUTO) 11.6 % (20.0-44.0); MEAN CORPUSCULAR HEMOGLOBIN 31 PG (26.0-33.0); MEAN CORPUSCULAR HGB CONC 33 g/dl (31.0-36.0); MEAN CORPUSCULAR VOLUME 94 fL (80-96); MONOCYTES # (AUTO) 0.7 /CMM (0.1-1.30); MONOCYTES % (AUTO) 6.2 % (2.0-12.0); NEUTROPHILS # (AUTO) 8.9 /CMM (1.8-8.9); NEUTROPHILS % (AUTO) 76.8 % (43.0-81.0); PLATELET COUNT (AUTO) 207 /CMM (150-450); RED BLOOD CELL COUNT(AUTO) 2.75 MIL/uL (4.5-6.0); WHITE BLOOD COUNT (AUTO) 11.5 K/uL (4.3-11.0)
--- NOTE | 2016-11-01 03:35 | NUR ---
patient pulled out right hand iv access, applied pressure to stop bleeding. patient tried to get up. unable to be directed. reorientation done, unsuccessful attempt at this time. Reported to Dr Mitchell. Received order for rufus med soft restraints, will release and will do skin and circulation check q2h and prn.
[2016-11-01 03:47] LABS: TROPONIN I 0.064 ng/mL (0.00-0.056)
[2016-11-01 03:53] LABS: BILIRUBIN,DIRECT 0.1 mg/dL (0.0-0.2); BILIRUBIN,TOTAL 0.4 mg/dL (0.2-1.0); CALCIUM, SERUM 8.3 mg/dL (8.5-10.1)
[2016-11-01 03:55] LABS: CREATININE 9.4 mg/dL (0.6-1.3); POTASSIUM 7.6 mmol/L (3.5-5.1)
[2016-11-01] MEDS ORDERED: IV D5W 50 ML IV ONE (04:13)
[2016-11-01] MEDS ORDERED: Calcium Gluconate 0.465 MEQ/ML VIAL IV ONE (04:13)
[2016-11-01 04:17] LABS: ABG BASE EXCESS -7.3 mmol/L; ABG OXYGEN SATURATION 71.5 % (92.0-98.5); ABG PCO2 62.8 mmHg (35.0-45.0); ABG PH 7.152 (7.350-7.450); ABG PO2 47.5 mmHg (75.0-100.0); ABG TOTAL HEMOGLOBIN 8.8 G/dL (13.5-18.0); AaDO2 311.2 mmHg; COHb 1.1 % (0.5-1.5); MetHb 0.6 % (0.0-1.5); O2Hb 70.3 % (94.0-97.0); PEEP,BG 5 cm H2O; SITE, ABG Left Radial; VENT MODE, BG AC 18; VT, ABG 500 mL
[2016-11-01] MEDS ORDERED: DEXTROSE 50%-WATER 50 ML DISP.SYRIN ONE (04:21)
[2016-11-01] MEDS ORDERED: INSULIN REGULAR, HUMAN 100 UNIT/ML 10 ML VIAL ONE (04:21)
[2016-11-01] MEDS ORDERED: SODIUM BICARBONATE SYR 50 MEQ/50 ML DISP.SYRIN ONE (04:21)
[2016-11-01] MEDS ORDERED: SODIUM BICARBONATE SYR 50 MEQ/50 ML DISP.SYRIN IV ONE (04:30)
[2016-11-01] MEDS ORDERED: DEXTROSE 50%-WATER 50 ML DISP.SYRIN IVP ONE (04:30)
[2016-11-01] MEDS ORDERED: Calcium Gluconate 1GM/10ML 4.65 MEQ in IV D5W 50 ML IV ONE (04:30)
[2016-11-01] MEDS ORDERED: INSULIN REGULAR, HUMAN 100 UNIT/ML 10 ML VIAL IV ONE (04:30)
--- NOTE | 2016-11-01 04:37 | NUR ---
Meds given as ordered by Dr Mitchell.
--- NOTE | 2016-11-01 04:38 | NUR ---
Report given to Elena DOMINGUEZ for lianna.
[2016-11-01] MEDS ORDERED: IV D5/0.45 NACL 1,000 ML IV PRN (04:59)
[2016-11-01] MEDS ORDERED: ONDANSETRON HCL/PF 4 MG/2 ML VIAL IVP PRN (05:00)
[2016-11-01] MEDS ORDERED: VANCOMYCIN 1 GM in IV D5W 250 ML IV SCH (05:00)
[2016-11-01] MEDS ORDERED: HYDROCODONE/APAP 5/325MG 1 EACH TABLET PO PRN ×2 (05:00)
[2016-11-01] MEDS ORDERED: ACETAMINOPHEN 325 MG TABLET PO PRN (05:00)
[2016-11-01] MEDS ORDERED: LORAZEPAM 1 MG TABLET PO PRN (05:00)
[2016-11-01] MEDS ORDERED: Z GUARD REMEDY 2 OZ OINT TP PRN (05:00)
[2016-11-01] MEDS ORDERED: HYDROCODONE/APAP 10/325MG 1 EA TABLET PO PRN (05:00)
--- NOTE | 2016-11-01 06:00 | NUR ---
transported to icu bed room 253 via als protocol, with rt. no incident noted.
[2016-11-01] MEDS ORDERED: IV D5W 250 ML IV ONE (06:10)
[2016-11-01] MEDS ORDERED: VANCOMYCIN 1 GM VIAL ONE (06:10)
[2016-11-01] MEDS ORDERED: IPRATROPIUM NEB FS 0.5 MG/2.5 ML AMPUL.NEB NEB PRN (06:30)
[2016-11-01] MEDS ORDERED: ALBUTEROL FS 2.5 MG/0.5 ML VIAL.NEB NEB PRN (06:30)
--- NOTE | 2016-11-01 07:07 | NUR ---
CHIEF LEGAL OFFICER. ADMISSION. RECEIVED THE PT FROM ER VIA RCRETE, PT NONVERBAL TRACH TO VENT CONNECTED, LETHARGIC.SHILEY#6, SIMV20,PRESSURE SUPPORT 10,TV 500, FIO2 50%, PEEP 5. SAT 98%. NO ACUTE DISTRESS NOTED. MINE LABORER SHOWING S JORGE 1ST DEGREE AV BLOCK.IV RT HAND AND RT FOOT,LT UPPER ARM HD CATH. HOB ELEVATED. NPO. WILL CONTINUE TO MONITOR VITALS.
--- NOTE | 2016-11-01 07:35 | NUR ---
GROCERY SPECIALIST RECEIVED PATIENT FROM THE PREVIOUS SHIFT. PATIENT IS IN BED. LETHARGIC NEURO STATUS. PATIENT IS UNABLE TO FOLLOW COMMANDS AT THIS TIME. NO GT SITE NOTED. PATIENT IS UNABLE TO TOLERATE PO INTAKE A THIS TIME. AC MODE ON THE VENT. TURNED AND REPOSITIONED FOR COMFORT AND WOUND PREVENTION. RESTRAINTS ARE ON FOR SAFETY. WILL CONTINUE TO MONITOR AND PROVIDE CARE.
[2016-11-01] MEDS: CALCIUM ACETATE 667 MG TABLET PO SCH ×3 (08:00→16:06)
[2016-11-01] MEDS ORDERED: FEE PK DOSING 1 MIN EA MC ONE (08:13)
[2016-11-01] MEDS ORDERED: AMIODARONE HCL 200 MG TABLET PO SCH (09:00)
[2016-11-01] MEDS ORDERED: risperiDONE 1 MG TABLET PO SCH (09:00)
[2016-11-01] MEDS: LIDOCAINE 5% (PATCH) 1 EA PATCH TP SCH (09:00)
[2016-11-01] MEDS: METOPROLOL TARTRATE 25 MG TABLET PO SCH ×3 (09:00→16:05)
[2016-11-01] MEDS ORDERED: PANTOPRAZOLE 40 MG TABLET.DR PO SCH (09:00)
[2016-11-01] MEDS: hydrALAZINE HCL 25 MG TABLET PO SCH ×3 (09:00→21:05)
[2016-11-01] MEDS: ASPIRIN EC 81 MG TABLET.DR PO SCH (09:00)
[2016-11-01] MEDS: FOLIC ACID 1 MG TABLET PO SCH (09:00)
[2016-11-01] MEDS ORDERED: PHENYTOIN EXTENDED RELEASE 100 MG CAPSULE PO SCH (09:00)
[2016-11-01] MEDS ORDERED: LEVETIRACETAM (250 MG) 250 MG TABLET PO SCH (09:00)
[2016-11-01] MEDS ORDERED: LEVETIRACETAM SOL (5 ML) 100 MG/ML UDC PO SCH (09:00)
[2016-11-01] MEDS: AMLODIPINE BESYLATE 5 MG TABLET PO SCH ×2 (09:00→16:06)
[2016-11-01] MEDS ORDERED: IV NS 0.9% 250 ML IV ONE (09:11)
[2016-11-01] MEDS ORDERED: SECONDARY IV SET 1 EA INFUS.SET MC ONE ×2 (09:12→20:07)
[2016-11-01] MEDS: methylPREDNISolone SOD SUCC 125 MG/2ML VIAL IV SCH ×3 (09:18→18:32)
[2016-11-01] MEDS: PIPERACILLIN /TAZOBACTAM 2.25 G in IV D5W 50 ML IV SCH ×3 (09:18→21:30)
--- NOTE | 2016-11-01 11:08 | NUR ---
TREE FALLER RN SPOKE WITH LORNA FROM HEART TO HEART NURSING AND WAS INFORMED THAT PATIENT GOT HIS LAST DOSES OF KEPPRA AND DILANTIN DOSES LAST NIGHT AT 2100H. CALLED MURRAY SMITH AND RECEIVED ORDERS TO CHANGE PO KEPPRA AND DILANTIN DOSES TO IV SINCE PATIENT IS ON AC MODE ON THE VENT.
[2016-11-01] MEDS: PANTOPRAZOLE 40 MG VIAL IV SCH (11:52)
[2016-11-01] MEDS: PHENYTOIN SODIUM IV 50 MG/ML VIAL IV SCH ×2 (11:52→21:04)
[2016-11-01] MEDS: LEVETIRACETAM (500MG) 750 MG in IV NS 0.9% 100 ML IV SCH ×2 (11:53→21:01)
--- NOTE | 2016-11-01 12:20 | NUR ---
SPRING MANUFACTURING SET UP TECHNICIAN PATIENT WAS SEEN BY ROAD CONSULTANT. RECEIVED ORDERS TO KEEP THE PATIENT NPO AND KEEP HIM ON THE AC MODE. PATIENT ASKED RNT TO CHECK THE ER FOR A BLUE BAG OF BELONGINGS. RN CALLED ER AND FOUND OUT THAT THERE IS NO BLUE BAG THERE. RN INFORMED THE PATIENT. NO BELONGINGS NOTED IN THE LIST UPON ARRIVAL. PATIENT REFUSED LIDOCAINE PATCH. IV DILANTIN AND KEPPRA GIVEN.
[2016-11-01 12:49] LABS: ABG BASE EXCESS -0.8 mmol/L; ABG OXYGEN SATURATION 95.8 % (92.0-98.5); ABG PCO2 40.2 mmHg (35.0-45.0); ABG PH 7.394 (7.350-7.450); ABG PO2 96.4 mmHg (75.0-100.0); ABG TOTAL HEMOGLOBIN 7.8 G/dL (13.5-18.0); AaDO2 214.9 mmHg; COHb 1.4 % (0.5-1.5); O2Hb 93.5 % (94.0-97.0); PEEP,BG 5 cm H2O; SITE, ABG Right Radial; VT, ABG 500 mL
[2016-11-01 13:14] LABS: CALCIUM, SERUM 8.5 mg/dL (8.5-10.1); CREATININE 6.2 mg/dL (0.6-1.3); POTASSIUM 4.7 mmol/L (3.5-5.1)
--- NOTE | 2016-11-01 14:04 | NUR ---
CHARTER BUS DRIVER VANCO DOSE TO BE HELD PER PHARMACIST.
--- NOTE | 2016-11-01 15:51 | NUR ---
PATENT ATTORNEY PATIENT COMPLAINTS OF EPIGASTRIC PAIN. PRIMARY TEAM AND THE IT INFRASTRUCTURE CONSULTANT AWARE. PER MDS PATIENT IS NOT TO RECEIVE NARCOTIC PAIN MEDICATIONS SINCE PATIENT PRESENTED TO THE ER WITH ALOC.
--- NOTE | 2016-11-01 16:00 | NUR ---
SPECIAL EDUCATION TEACHING ASSISTANT RN CALLED HEART TO HEART FACILITY AND SPOKE WITH LORNA. PER LORNA, NIGHT NURSE CLAIMED THAT PATIENT LEFT THE FACILITY WITH A BLUE BAG WITH HIMSELF. PER ADMIT BELONGING LIST NO BELONGINGS CAME IN WITH THE PATIENT. TESTER SOUND CONSULT PLACED FOR INVESTIGATING MISSING BELONGINGS.
[2016-11-01] MEDS: diphenhydrAMINE HCL 50 MG/ML VIAL IV PRN (18:53)
--- NOTE | 2016-11-01 20:00 | NUR ---
Received patient sleeping aroused easily.Oriented x 3.SB 57 per monitor.Hemodynamically stable. With trach to vent on AC mode.Tolerating vent settings well.SPO2 100%.No acute distress noted. Saline lock to Right hand and right foot intact.ALBINO AV SHUNT with dressing C/D/I.Positive bruit and thrill. Safety maintained with call light at bedside.Patient independent with bed mobility.Continue monitoring.
--- NOTE | 2016-11-01 21:50 | NUR ---
Lab called patient BC with Gram Positive Cocci in one Aerobic bottle. notified.Updated of patient medications.Vanco trough 25.Patient on Zosyn and Levaquin.No new orders received.
--- NOTE | 2016-11-01 22:00 | NUR ---
Patient agitated keep pulling out trach.Wants his blue bag.Per report unable to locate bag and social service in consult.Patient made aware.
[2016-11-01] MEDS: ATORVASTATIN 10 MG TABLET PO SCH (22:10)
[2016-11-02] VITALS (42 sets, daily range): BP systolic 122–190; BP diastolic 55–116
[2016-11-02] MEDS: methylPREDNISolone SOD SUCC 125 MG/2ML VIAL IV SCH ×4 (00:44→17:13)
[2016-11-02] MEDS ORDERED: LEVOFLOXACIN 250 MG /D5W 50 ML 250 MG in PREMIX 1 EA IV SCH (03:00)
--- NOTE | 2016-11-02 03:00 | NUR ---
Patient very agitated.Throwing urinal,tape and other things to the floor.Patient educated of infection control.Patient keep disconnecting trach.Patient given the option of restrains be applied if he will not cooperate with treatment for safety.Suction small white secretions. Continue monitoring.
[2016-11-02] MEDS: diphenhydrAMINE HCL 50 MG/ML VIAL IV PRN ×4 (03:25→18:59)
--- NOTE | 2016-11-02 03:25 | NUR ---
Patient complaints of itching and Benadryl administered as PRN.
--- NOTE | 2016-11-02 04:00 | NUR ---
Patient still itching.Bed bath rendered and complete linens changed.FIO2 turned down to 30% by RAMAKRISHNA,RT. Patient tolerating well.
[2016-11-02 04:48] LABS: BASOPHILS % (AUTO) 0.2 % (0.0-2.0); EOSINOPHILS % (AUTO) 0.1 % (0.0-6.0); HEMATOCRIT 24 % (39-51); LYMPHOCYTES # (AUTO) 0.5 /CMM (0.8-4.8); LYMPHOCYTES % (AUTO) 8.8 % (20.0-44.0); MEAN CORPUSCULAR HEMOGLOBIN 31 PG (26.0-33.0); MEAN CORPUSCULAR HGB CONC 33 g/dl (31.0-36.0); MEAN CORPUSCULAR VOLUME 93 fL (80-96); MONOCYTES # (AUTO) 0.1 /CMM (0.1-1.30); MONOCYTES % (AUTO) 1.5 % (2.0-12.0); NEUTROPHILS # (AUTO) 5.2 /CMM (1.8-8.9); NEUTROPHILS % (AUTO) 89.4 % (43.0-81.0); PLATELET COUNT (AUTO) 159 /CMM (150-450); RDW COEFFICIENT OF VARIATION 15.6 (11.5-15.0); RED BLOOD CELL COUNT(AUTO) 2.59 MIL/uL (4.5-6.0); WHITE BLOOD COUNT (AUTO) 5.8 K/uL (4.3-11.0)
[2016-11-02 05:01] LABS: ALBUMIN 3.7 g/dL (3.4-5.0); BILIRUBIN,TOTAL 0.5 mg/dL (0.2-1.0); CALCIUM, SERUM 8.4 mg/dL (8.5-10.1); CREATININE 7.4 mg/dL (0.6-1.3); MAGNESIUM 2.4 mg/dL (1.8-2.4); PHOSPHORUS 6.9 mg/dL (2.5-4.9); POTASSIUM 5.6 mmol/L (3.5-5.1); TOTAL PROTEIN, SERUM 7.5 g/dL (6.4-8.2)
[2016-11-02] MEDS: PHENYTOIN SODIUM IV 50 MG/ML VIAL IV SCH ×3 (05:02→20:38)
[2016-11-02 05:03] LABS: TROPONIN I 0.027 ng/mL (0.00-0.056)
[2016-11-02] MEDS: PIPERACILLIN /TAZOBACTAM 2.25 G in IV D5W 50 ML IV SCH ×3 (05:03→20:42)
[2016-11-02 05:09] LABS: THYROID STIMULATING HORMONE 1.531 uIU/mL (0.358-3.74)
--- NOTE | 2016-11-02 06:32 | NUR ---
Patient BUN elevated called to no new orders received.Said to wait for Nephrology today.
--- NOTE | 2016-11-02 07:08 | NUR ---
Patient resting.VS stable.All due medications administered.Report given to ANGELICA FLOYD for continuity of care.
--- NOTE | 2016-11-02 07:31 | NUR ---
EQUIPMENT PROCESSER STORAGE RECEIVED PATIENT FROM THE PREVIOUS SHIFT. PATIENT IS IN BED. RESTING COMFORTABLY. NO ACUTE DISTRESS NOTED. ON AC MODE ON VENT AT 30% FIO2. ABLE TO REPOSITION SELF ON BED. WILL CONTINUE TO MONITOR AND PROVIDE CARE.
[2016-11-02] MEDS: CALCIUM ACETATE 667 MG TABLET PO SCH ×3 (08:00→15:52)
[2016-11-02] MEDS: hydrALAZINE HCL 25 MG TABLET PO SCH ×3 (08:11→20:40)
[2016-11-02] MEDS: AMIODARONE HCL 200 MG TABLET PO SCH (08:11)
[2016-11-02] MEDS: ASPIRIN EC 81 MG TABLET.DR PO SCH (08:11)
[2016-11-02] MEDS: METOPROLOL TARTRATE 25 MG TABLET PO SCH ×3 (08:12→15:51)
[2016-11-02] MEDS: FOLIC ACID 1 MG TABLET PO SCH (08:12)
[2016-11-02] MEDS: AMLODIPINE BESYLATE 5 MG TABLET PO SCH ×2 (08:12→15:51)
[2016-11-02] MEDS: risperiDONE 1 MG TABLET PO SCH ×2 (08:13→15:52)
[2016-11-02] MEDS: PANTOPRAZOLE 40 MG VIAL IV SCH (08:15)
[2016-11-02] MEDS: LIDOCAINE 5% (PATCH) 1 EA PATCH TP SCH (09:00)
[2016-11-02] MEDS: LEVETIRACETAM (500MG) 750 MG in IV NS 0.9% 100 ML IV SCH ×2 (09:42→20:39)
[2016-11-02] MEDS: NICOTINE PATCH (14MG) 14 MG PATCH.TD24 TD SCH (11:42)
[2016-11-02] MEDS: HYDROMORPHONE 1 MG/1 ML DISP.SYRIN IV PRN ×4 (12:43→21:29)
--- NOTE | 2016-11-02 15:53 | NUR ---
PADDLE DYEING MACHINE OPERATOR RN SPOKE WITH THE CAD DETAILER REGARDING PATIENT'S NPO STATUS AND HIGH BLOOD PRESSURES. RECEIVED ORDERS TO HOLD PO BP MEDS AND GIVE NITROPASTE TOPICALLY FOR BP MANAGEMENT.
--- NOTE | 2016-11-02 16:24 | NUR ---
RT PER DR SHAVER ORDER PATIENT PLACED ON COOL AEROSOL 40% TOLERATED WELL. PATIENT AWAKE ALERT ZERO SOB
[2016-11-02] MEDS: NITROGLYCERIN 30 GM TUBE TP SCH ×2 (17:09→20:41)
[2016-11-02] MEDS ORDERED: CLONIDINE HCL 0.3 MG/24H PTWK 1 EA PATCH TD SCH (18:30)
--- NOTE | 2016-11-02 18:31 | NUR ---
LAB COURIER RECEIVED ORDERS FROM TRAVEL INSURANCE AGENT FOR CLONIDINE PATCH DUE TO SBPS AT 180S. FIRST DOSE ADMINISTERED.
[2016-11-02] MEDS: ATORVASTATIN 10 MG TABLET PO SCH (20:41)
[2016-11-02] MEDS ORDERED: NITROGLYCERIN PACKET 1 GM PACKET TOP SCH (21:30)
[2016-11-02] MEDS ORDERED: PHENYTOIN SUSP UDC 100 MG/4 ML UDC ONE (21:39)
[2016-11-02] MEDS: PHENYTOIN SUSP UDC 100 MG/4 ML UDC PO SCH (21:43)
[2016-11-03] VITALS (23 sets, daily range): BP systolic 99–178; BP diastolic 53–124
[2016-11-03] MEDS: diphenhydrAMINE HCL 50 MG/ML VIAL IV PRN ×4 (00:22→18:30)
[2016-11-03] MEDS: methylPREDNISolone SOD SUCC 125 MG/2ML VIAL IV SCH ×4 (00:22→17:30)
[2016-11-03] MEDS: HYDROMORPHONE 1 MG/1 ML DISP.SYRIN IV PRN ×7 (00:23→21:01)
[2016-11-03] MEDS ORDERED: PHENYTOIN SUSP UDC 100 MG/4 ML UDC ONE (04:15)
[2016-11-03 04:49] LABS: BASOPHILS % (AUTO) 0.1 % (0.0-2.0); HEMATOCRIT 25 % (39-51); HEMOGLOBIN 8.5 g/dL (13.5-17.5); LYMPHOCYTES # (AUTO) 0.5 /CMM (0.8-4.8); LYMPHOCYTES % (AUTO) 5.6 % (20.0-44.0); MEAN CORPUSCULAR HEMOGLOBIN 31 PG (26.0-33.0); MEAN CORPUSCULAR HGB CONC 34 g/dl (31.0-36.0); MEAN CORPUSCULAR VOLUME 92 fL (80-96); MONOCYTES # (AUTO) 0.3 /CMM (0.1-1.30); MONOCYTES % (AUTO) 3.9 % (2.0-12.0); NEUTROPHILS # (AUTO) 8.1 /CMM (1.8-8.9); NEUTROPHILS % (AUTO) 90.4 % (43.0-81.0); PLATELET COUNT (AUTO) 230 /CMM (150-450); RDW COEFFICIENT OF VARIATION 16.1 (11.5-15.0); RED BLOOD CELL COUNT(AUTO) 2.75 MIL/uL (4.5-6.0); WHITE BLOOD COUNT (AUTO) 8.9 K/uL (4.3-11.0)
[2016-11-03] MEDS: PHENYTOIN SODIUM IV 50 MG/ML VIAL IV SCH (05:00)
[2016-11-03 05:02] LABS: CALCIUM, SERUM 8.3 mg/dL (8.5-10.1); CREATININE 6.5 mg/dL (0.6-1.3); MAGNESIUM 2.4 mg/dL (1.8-2.4); PHOSPHORUS 6.1 mg/dL (2.5-4.9); POTASSIUM 4.8 mmol/L (3.5-5.1)
[2016-11-03] MEDS: PIPERACILLIN /TAZOBACTAM 2.25 G in IV D5W 50 ML IV SCH ×2 (05:03→12:40)
[2016-11-03] MEDS: PHENYTOIN SUSP UDC 100 MG/4 ML UDC PO SCH ×3 (05:03→21:15)
--- NOTE | 2016-11-03 06:00 | NUR ---
DUST COLLECTOR - REC'D PT. LAST NIGHT TALKING ON PHONE FOR HOURS. PT.ASKED FOR DILAUDID 0.5MG SLOW IVP Q 3 HRS EXACTLY ON THE MINUTE & BENADRYL FOR PRURITIS. PT.IS ON 40% COOL AEROSOL MASK TO TRACH. PT.HAD HD TODAY & HAD 3.5L REMOVED. ANURIC FOR MY SHIFT. PT. REFUSED DILANTIN IV & WANTED TO EAT "NOW". DR. ULLOA PHONED & ORDERS REC'D. PT.IS NOW ON A SOFT RENAL DIET & DILANTIN IS NOW PO. REPORT ENDORSED TO EVERETT DOMINGUEZ. CONT.POC.
--- NOTE | 2016-11-03 07:34 | NUR ---
SHUTDOWN PLANNER RECEIVED PATIENT FROM THE PREVIOUS SHIFT. PATIENT IS IN BED. RESTING COMFORTABLY. ALERT AND AWAKE. NO ACUTE DISTRESS. AFEBRILE. VITAL SINGS STABLE. ABLE TO REPOSITION SELF. WILL CONTINUE TO MONITOR AND PROVIDE CARE.
[2016-11-03] MEDS ORDERED: IV NS 0.9% 250 ML IV ONE (08:24)
[2016-11-03] MEDS: NITROGLYCERIN PACKET 1 GM PACKET TOP SCH ×2 (08:29→21:23)
[2016-11-03] MEDS: PANTOPRAZOLE 40 MG VIAL IV SCH (08:29)
[2016-11-03] MEDS: NICOTINE PATCH (14MG) 14 MG PATCH.TD24 TD SCH (08:29)
[2016-11-03] MEDS: hydrALAZINE HCL 25 MG TABLET PO SCH ×3 (08:29→21:21)
[2016-11-03] MEDS: risperiDONE 1 MG TABLET PO SCH ×2 (08:30→17:26)
[2016-11-03] MEDS: METOPROLOL TARTRATE 25 MG TABLET PO SCH ×3 (08:30→17:00)
[2016-11-03] MEDS: AMLODIPINE BESYLATE 5 MG TABLET PO SCH ×2 (08:30→17:27)
[2016-11-03] MEDS: ASPIRIN EC 81 MG TABLET.DR PO SCH (08:30)
[2016-11-03] MEDS: CALCIUM ACETATE 667 MG TABLET PO SCH ×3 (08:30→17:26)
[2016-11-03] MEDS: FOLIC ACID 1 MG TABLET PO SCH (08:30)
[2016-11-03] MEDS: LIDOCAINE 5% (PATCH) 1 EA PATCH TP SCH (08:31)
[2016-11-03] MEDS: AMIODARONE HCL 200 MG TABLET PO SCH (08:31)
[2016-11-03] MEDS: LEVETIRACETAM (500MG) 750 MG in IV NS 0.9% 100 ML IV SCH (08:32)
--- NOTE | 2016-11-03 13:20 | NUR ---
RN INITIAL NOTES RECEIVED PT VIA WHEELCHAIR FROM ICU. AWAKE, A/OX4. ON COOL AEROSOL AT 40%. TRACH IN PLACE. NO RESPIRATORY DISTRESS NOTED. NO SOB NOTED. DENIES ANY PAIN. IV LINES IN PLACE. ALBINO AV SHUNT INTACT, BRUIT AND THRILL PRESENT. PT ORIENTED TO ROOM AND USE OF CALL LIGHT. PLACED COMFORTABLY IN BED. BLE ELEVATED. WILL MONITOR.
[2016-11-03] MEDS ORDERED: EPOETIN ALFA (10,000 UNIT) 10,000 UNIT/ML VIAL SQ ONE (13:30)
--- NOTE | 2016-11-03 13:35 | NUR ---
PROCUREMENT REPRESENTATIVE TRANSFERRED THE PATIENT TO DENI LEVEL OF CARE ON STABLE CONDITIONS. ACLS PROTOCOL. REPORT GIVEN TO RECEIVING RN FOR CONTINUITY OF CARE.
--- NOTE | 2016-11-03 15:00 | NUR ---
RN NOTES DIALYSIS STARTED. NO RESPIRATORY DISTRESS NOTED. NO SOB NOTED. DENIES ANY PAIN. WILL MONITOR.
--- NOTE | 2016-11-03 17:02 | NUR ---
RN NOTES DIALYSIS ENDED. REMOVED 3L. NO RESPIRATORY DISTRESS NOTED. NO SOB NOTED. DENIES PAIN. TOLERATED WELL. WILL MONITOR.
[2016-11-03] MEDS: LACTOBACILLUS RHAMNOSUS GG 1 EACH CAP.SPRINK PO SCH (17:26)
[2016-11-03] MEDS ORDERED: IV SET PRIMARY PUMP SET 1 EA INFUS.SET MC ONE (18:18)
[2016-11-03] MEDS: VANCOMYCIN 500 MG in IV D5W 100 ML IV PRN (19:11)
--- NOTE | 2016-11-03 19:29 | NUR ---
RN NOTE. INITIAL ASSESSMENT. RECEIVED THE PT REST ON THE BED. TRACH INTACT. OXYGEN T PICE CONNECTED TO TRACH. R AND D LAB TECHNICIAN SHOWING 1ST DEGREE HB. IV RT EJ, SALINE LOCK. LT UPPER ARM AVF. HOB ELEVATED. PT TURN AND REPOSITION INDEPENDENT.AFEBRILE. WILL CONTINUE TO MONITOR VITALS.
[2016-11-03] MEDS: LEVETIRACETAM (250 MG) 250 MG TABLET PO SCH (21:16)
[2016-11-03] MEDS: ATORVASTATIN 10 MG TABLET PO SCH (21:16)
[2016-11-03] MEDS: MUPIROCIN OINT 2% 22 GM TUBE SCH (21:20)
[2016-11-04] VITALS: BP_SYST 97; BP_DIAS 52; BP_DIAS 57
[2016-11-04] MEDS: methylPREDNISolone SOD SUCC 125 MG/2ML VIAL IV SCH ×4 (00:35→17:32)
[2016-11-04] MEDS: diphenhydrAMINE HCL 50 MG/ML VIAL IV PRN ×4 (01:22→21:40)
[2016-11-04] MEDS: HYDROMORPHONE 1 MG/1 ML DISP.SYRIN IV PRN ×7 (01:23→21:40)
--- NOTE | 2016-11-04 02:41 | NUR ---
RN DANIAL. AM CARE. ORAL CARE, BED BATH GIVEN. LINEN CHANGED, REMAINING SAME OXYGEN TOLERATED WELL. SAT 98%. NO ACUTE DISTRESS NOTED. PRODUCT DEVELOPMENT SCIENTIST SHOWING NSR. IV RT EJ SALINE LOCK. HOB ELEVATED. TURN AND REPOSITION PT INDEPENDENT. WILL CONTINUE TO MONITOR VITALS.
[2016-11-04 04:00] VITALS: BP_SYST 101; BP_DIAS 53; BP_DIAS 57
[2016-11-04] MEDS: PHENYTOIN SUSP UDC 100 MG/4 ML UDC PO SCH ×3 (05:05→21:25)
[2016-11-04 06:53] LABS: EOSINOPHILS % (AUTO) 0.2 % (0.0-6.0); HEMATOCRIT 28 % (39-51); HEMOGLOBIN 9.3 g/dL (13.5-17.5); LYMPHOCYTES # (AUTO) 1.1 /CMM (0.8-4.8); LYMPHOCYTES % (AUTO) 10.1 % (20.0-44.0); MEAN CORPUSCULAR HEMOGLOBIN 31 PG (26.0-33.0); MEAN CORPUSCULAR HGB CONC 33 g/dl (31.0-36.0); MEAN CORPUSCULAR VOLUME 94 fL (80-96); MONOCYTES # (AUTO) 0.8 /CMM (0.1-1.30); MONOCYTES % (AUTO) 7.5 % (2.0-12.0); NEUTROPHILS # (AUTO) 8.9 /CMM (1.8-8.9); NEUTROPHILS % (AUTO) 82.2 % (43.0-81.0); PLATELET COUNT (AUTO) 244 /CMM (150-450); RDW COEFFICIENT OF VARIATION 15.6 (11.5-15.0); RED BLOOD CELL COUNT(AUTO) 2.95 MIL/uL (4.5-6.0); WHITE BLOOD COUNT (AUTO) 10.9 K/uL (4.3-11.0)
[2016-11-04 07:09] LABS: CALCIUM, SERUM 7.9 mg/dL (8.5-10.1); CREATININE 6.8 mg/dL (0.6-1.3); MAGNESIUM 2.3 mg/dL (1.8-2.4); PHOSPHORUS 4.6 mg/dL (2.5-4.9)
[2016-11-04 08:00] VITALS: BP 90/40
--- NOTE | 2016-11-04 08:00 | NUR ---
DENI/RN: PT IN BED, A&OX4, C/O 10/10 L SHOULDER PAIN. EDUCATED PT ON PAIN MGMT AND BP MANAGEMENT, VERBALIZED UNDERSTANDING. IV HL TO R EJ AND R FA PATENT AND INTACT. ALBINO AV SHUNT + BRUIT AND THRILL. WILL ADMINISTER PAIN MED FOR RELIEF AND REASSESS EFFECTIVENESS
[2016-11-04] MEDS: AMIODARONE HCL 200 MG TABLET PO SCH (08:11)
[2016-11-04] MEDS: NICOTINE PATCH (14MG) 14 MG PATCH.TD24 TD SCH (08:11)
[2016-11-04] MEDS: CALCIUM ACETATE 667 MG TABLET PO SCH ×3 (08:12→17:32)
[2016-11-04] MEDS: PANTOPRAZOLE 40 MG VIAL IV SCH (08:12)
[2016-11-04] MEDS: ASPIRIN EC 81 MG TABLET.DR PO SCH (08:12)
[2016-11-04] MEDS: LEVETIRACETAM (250 MG) 250 MG TABLET PO SCH ×2 (08:12→21:29)
[2016-11-04] MEDS: FOLIC ACID 1 MG TABLET PO SCH (08:12)
[2016-11-04] MEDS: risperiDONE 1 MG TABLET PO SCH ×2 (08:12→17:31)
[2016-11-04] MEDS: LACTOBACILLUS RHAMNOSUS GG 1 EACH CAP.SPRINK PO SCH ×2 (08:12→17:31)
[2016-11-04] MEDS: MUPIROCIN OINT 2% 22 GM TUBE SCH ×2 (08:20→21:31)
[2016-11-04] MEDS: AMLODIPINE BESYLATE 5 MG TABLET PO SCH ×2 (09:00→17:31)
[2016-11-04] MEDS: LIDOCAINE 5% (PATCH) 1 EA PATCH TP SCH (09:00)
[2016-11-04] MEDS: METOPROLOL TARTRATE 25 MG TABLET PO SCH ×3 (09:00→17:31)
[2016-11-04] MEDS: NITROGLYCERIN PACKET 1 GM PACKET TOP SCH ×2 (09:00→21:00)
[2016-11-04] MEDS: hydrALAZINE HCL 25 MG TABLET PO SCH ×3 (09:00→21:00)
--- NOTE | 2016-11-04 10:32 | NUR ---
PT. TACHYCARDIC 140,PAIN MEDS GIVEN,MD NOTIFIED WILL GIVE NS BOLUS ORDERED WILL CONTINUE TO MONITOR.
--- NOTE | 2016-11-04 10:34 | NUR ---
ADDENDUM EARLY NOTES WRONG ENTRY.
--- NOTE | 2016-11-04 15:00 | NUR ---
ICU/RN: PT REQUESTS IV DILAUDID AROUND THE CLOCK; NOTED TO BE TALKING ON PHONE FOR SEVERAL HOURS WITH NO S/S DISTRESS. HOWEVER WHEN STAFF ENTERS THE ROOM, PT SHOWS S/S PAIN AND DISTRESS AND C/O L SHOULDER DISCOMFORT AND BECOMES AGITATED. CXR REPORT READ TO PT, AND EDUCATED ON PAIN MGMT. STILL C/O L SHOULDER PAIN /. WILL MANAGE PAIN ACCORDINGLY.
[2016-11-04 16:00] VITALS: BP 104/60
--- NOTE | 2016-11-04 16:02 | NUR ---
Social service consult requested by Dr. Alcaraz for patient's claim of lost items. Per H&P report by Dr. Alcaraz, patient has a PMHx of CVA, AFIB, respiratory failure, and Chronic Renal Insuff. Patient was admitted to [facility] for acute on chronic respiratory failure, hyperkalemia, and ESRD. SW met with patient at bedside. Patient presented with a euthymic mood, had congruent affect, and had a trach. Patient reported that he personally does not have any recollection of a blue bag, but that his neighbor told him he had a blue bag. The patient states that his blue bag was taken to the the emergency room. However, emergency department documented that the patient was admitted without any possessions. SW agreed to explore if blue was in the ED area, but explained to him that it was documented that he was admitted without any possessions. Patient reports that he had glasses and phone numbers within his blue bag.
--- NOTE | 2016-11-04 18:37 | NUR ---
MS/RN: ADMINISTERED DILAUDID FOR PAIN RELIEF. WILL REASSESS ACCORDINGLY. BREATHING EVEN AND UNLABORED ON T-PIECE O2 VIA COOL AEROSOL AT 40%. WILL ENDORSE CARE TO PM RN FOR AGATHA.
--- NOTE | 2016-11-04 19:30 | NUR ---
RN INITIAL NOTE RECEIVED PT IN NO ACUTE DISTRESS IN BED. PT IS A/O X 3 AND ABLE TO MAKE NEEDS KNOWN. PT IS ON COOL AEROSOL VIA TRACH AND TOLERATING WELL WTIH O2 SAT @ 98%. PT TRACH SITE IS CLEAN DRY AND INTACT. PT IS NOT C/O ANY SOB, DIFFICULTY BREATHING OR PAIN AT THIS TIME. PT HAS PAIN MEDICATION PRN FOR PAIN MANAGEMENT. PT HAS REJ 20G THAT IS CLEAN DRY INTACT AND PATENT AND R FOOT 20G THAT IS CLEAN DRY INTACT AND PATENT. PT HAS ALBINO AV SHUNT THAT IS CLEAN DRY AND INTACT. BED IN LOW LOCK POSITION WITH RIALS UP X 2. CALL LIGHT WITHIN REACH AND ALL SAFETY MEASURES ENSURED AND CARRIED OUT. WILL CONTINUE TO MONITOR PT.
[2016-11-04 20:00] VITALS: BP 98/54
[2016-11-04] MEDS: ATORVASTATIN 10 MG TABLET PO SCH (21:23)
[2016-11-05] MEDS: methylPREDNISolone SOD SUCC 125 MG/2ML VIAL IV SCH ×2 (00:31→05:41)
[2016-11-05 04:00] VITALS: BP 101/60
[2016-11-05] MEDS: diphenhydrAMINE HCL 50 MG/ML VIAL IV PRN ×4 (04:30→21:57)
[2016-11-05] MEDS: HYDROMORPHONE 1 MG/1 ML DISP.SYRIN IV PRN ×7 (04:30→23:23)
[2016-11-05] MEDS: PHENYTOIN SUSP UDC 100 MG/4 ML UDC PO SCH ×3 (05:41→20:32)
--- NOTE | 2016-11-05 06:55 | NUR ---
RN CLOSING NOTE PT REMAINS IN NO ACUTE DISTRESS IN BED. PT DID NOT HAVE ANY SIGNIFICANT CHANGE IN CONDITION DURING SHIFT. ALL NEEDS MET ALL ORDERS CARRIED OUT. WILL ENDORSE TO AM RN FOR CONTINUITY OF CARE.
[2016-11-05 07:29] LABS: BASOPHILS % (AUTO) 0.1 % (0.0-2.0); HEMATOCRIT 28 % (39-51); HEMOGLOBIN 9.2 g/dL (13.5-17.5); MEAN CORPUSCULAR HEMOGLOBIN 31 PG (26.0-33.0); MEAN CORPUSCULAR HGB CONC 33 g/dl (31.0-36.0); MEAN CORPUSCULAR VOLUME 95 fL (80-96); MONOCYTES # (AUTO) 0.6 /CMM (0.1-1.30); MONOCYTES % (AUTO) 4.4 % (2.0-12.0); NEUTROPHILS # (AUTO) 11.2 /CMM (1.8-8.9); NEUTROPHILS % (AUTO) 87.5 % (43.0-81.0); PLATELET COUNT (AUTO) 219 /CMM (150-450); RDW COEFFICIENT OF VARIATION 16.1 (11.5-15.0); RED BLOOD CELL COUNT(AUTO) 2.99 MIL/uL (4.5-6.0); WHITE BLOOD COUNT (AUTO) 12.8 K/uL (4.3-11.0)
--- NOTE | 2016-11-05 07:53 | NUR ---
MS RN NOTE PATIENT IN BED , RESTING COMFORTABLY, NO SOB NOTED , WITH TRACH TO COLLER AEROSOL ON 8L WITH 35% OF O2 , LT UA AV SHUNT IN PLACE WITH BRUIT SOUND , RT EJ HL AND RT FOOT HL INTACT, NO S\S INFECTION NOTED , BED IN LOWEST AND LOCKED POSITION , AND CALL LIGHT WITHIN REACH ,WILL CONT TO MONITOR CLOSELY
[2016-11-05 07:54] LABS: CALCIUM, SERUM 8.1 mg/dL (8.5-10.1); MAGNESIUM 2.5 mg/dL (1.8-2.4); PHOSPHORUS 4.1 mg/dL (2.5-4.9); POTASSIUM 4.9 mmol/L (3.5-5.1)
[2016-11-05 07:55] LABS: CREATININE 8.6 mg/dL (0.6-1.3)
[2016-11-05 08:00] VITALS: BP 93/58
[2016-11-05] MEDS: PANTOPRAZOLE 40 MG VIAL IV SCH (08:36)
[2016-11-05] MEDS: CALCIUM ACETATE 667 MG TABLET PO SCH ×3 (08:38→17:39)
[2016-11-05] MEDS: LACTOBACILLUS RHAMNOSUS GG 1 EACH CAP.SPRINK PO SCH ×2 (08:39→16:05)
[2016-11-05] MEDS: ASPIRIN EC 81 MG TABLET.DR PO SCH (08:39)
[2016-11-05] MEDS: NICOTINE PATCH (14MG) 14 MG PATCH.TD24 TD SCH (08:39)
[2016-11-05] MEDS: LEVETIRACETAM (250 MG) 250 MG TABLET PO SCH ×2 (08:40→20:32)
[2016-11-05] MEDS: FOLIC ACID 1 MG TABLET PO SCH (08:41)
[2016-11-05] MEDS: risperiDONE 1 MG TABLET PO SCH ×2 (08:43→16:04)
[2016-11-05] MEDS: LIDOCAINE 5% (PATCH) 1 EA PATCH TP SCH (08:44)
[2016-11-05] MEDS: NITROGLYCERIN PACKET 1 GM PACKET TOP SCH ×2 (08:45→22:07)
[2016-11-05] MEDS: AMIODARONE HCL 200 MG TABLET PO SCH (08:47)
[2016-11-05] MEDS: MUPIROCIN OINT 2% 22 GM TUBE SCH ×2 (08:48→20:40)
[2016-11-05] MEDS: hydrALAZINE HCL 25 MG TABLET PO SCH ×3 (08:48→20:33)
[2016-11-05] MEDS: METOPROLOL TARTRATE 25 MG TABLET PO SCH ×3 (08:49→17:07)
[2016-11-05] MEDS: AMLODIPINE BESYLATE 5 MG TABLET PO SCH ×2 (08:49→17:07)
--- NOTE | 2016-11-05 09:53 | NUR ---
MS NOTE F/U PT AMBULATED WELL WITH PT , WITH O2
--- NOTE | 2016-11-05 10:31 | NUR ---
MS RN NOTE CHEST XAY DONE ORDERED, BENADRYL FOR ITCHING GIVEN ORDERED WILL COT TO MONITOR
--- NOTE | 2016-11-05 11:58 | NUR ---
MS RN NOTE SPOKE WITH ANGELICA LIU,PROGRAM CHECKER NOTIFIED THAT WBC 12.8 AND X-RAY RESULT NO SIGNIFICANT AND X-RAY NO SIGNIFICANT PT CURRENTLY ON DILAUDID 0.5 , VALERIE DOMINGUEZ, PROGRAM CHECKER ORDERED PMV FOR SPEAKING AT BEDSIDE, PT WILL HAVE HD 11/05/16 AND POSSIBLE DISCHARGE IN THE AM 11/06/16.
[2016-11-05] MEDS: methylPREDNISolone SOD SUCC 40 MG/ML VIAL IV SCH ×2 (12:51→16:04)
--- NOTE | 2016-11-05 14:13 | NUR ---
MS RN NOTE PT RECEIVING DIALYSIS , LABS/BP GIVEN TO DIALYSIS NURSE PER RN REQUEST. NO ISSUES OR CONCERNS AT THIS TIME , NURSING STAFFF WILL CONTINUE TO FOLLOW PATIENTS PROGRESS.
--- NOTE | 2016-11-05 14:35 | NUR ---
MS RN NOTE PT GIVEN PRN DILAUDID FOR GENERALIZED BACK AND ARM PAIN PAIN RATED A 8 OUT OF 10. MEDICATION ADMINISTRATION OK VIA DIALYSIS NURSE VITALS ARE FOLLOWS - B/P 111/51 PULSE 57 O2- 98 RESP: 18. PT VERBALIZED DECREASE IN PAIN AFTER DILAUDID ADMINSTRAION NURSING STAFF WILL CONTINUE TO FOLLOW THE PATIENTS PROGRESS.
--- NOTE | 2016-11-05 15:30 | NUR ---
MS RN NOTE NURSING STAFF SPOKE WITH KESHA FROM CASE MANAGEMENT IN REGARDS TO PATIENT REQUEST TO SPEAK WITH HIM, KSEHA STATED HE WOULD SPEAK WITH THE PATIENT AT HIS EARLIEST CONVENIENCE. NURSING STAFF WILL CONTINUE TO FOLLOW.
--- NOTE | 2016-11-05 16:57 | NUR ---
MS RN NOTE HD COMPLETED ,2 L OF FLUIDS OUT, BP 112/66 HR 66
[2016-11-05 17:00] VITALS: BP 127/61
[2016-11-05] MEDS: VANCOMYCIN 500 MG in IV D5W 100 ML IV PRN (17:04)
--- NOTE | 2016-11-05 18:17 | NUR ---
MS RN CLOSING NOTE PT REMAINS IN NO ACUTE DISTRESS IN BED. PT DID NOT HAVE ANY SIGNIFICANT CHANGE IN CONDITION DURING SHIFT. ALL NEEDS MET ALL ORDERS CARRIED OUT. WILL ENDORSE TO PM RN FOR CONTINUITY OF CARE. PT HAD DIALYSIS TODAY WITHOUT ANY ISSUES OR CONCERNS , PT PAIN ASSESSED AND ADRESSED PER MD ORDERS
--- NOTE | 2016-11-05 19:40 | NUR ---
MSRN FULLY AWAKE, VERBALIZES LEFT SHOULDER PAIN, PAIN MGT REVIEWED WITH PATIENT APPEARS TO UNDERSTAND. ALL NEEDS ATTENDED, V/S MONITORED. PATIENT TRACH TO AIROSOL 35%. NO SOB OCC DRY COUGH, RT TREATMENT ON PROGRESS.
[2016-11-05 20:00] VITALS: BP 105/74
[2016-11-05] MEDS: ATORVASTATIN 10 MG TABLET PO SCH (20:32)
--- NOTE | 2016-11-05 21:40 | NUR ---
MSRN DUE MEDS ADMINISTED. VOIDED 200 CC LUISA COLORED URINE OUTPUT.
--- NOTE | 2016-11-05 23:31 | NUR ---
MSRN DILAUDED 0.5 MG IVP ADMINISTERED FOR LEFTR SHOULDER PAIN, PATIENT STATED HAS BEEN CHRONIC. VERBALIZES WANTING TO GO HOME SOON. POSS DC IN AM ONCE MEDICALLY CLEARED. REPOSITIONS SELF FOR COMFORT.
[2016-11-06] VITALS: BP 112/74
[2016-11-06 00:30] VITALS: BP 112/74
[2016-11-06] MEDS: HYDROMORPHONE 1 MG/1 ML DISP.SYRIN IV PRN ×4 (02:30→11:39)
[2016-11-06 04:00] VITALS: BP 119/62
[2016-11-06] MEDS: diphenhydrAMINE HCL 50 MG/ML VIAL IV PRN ×2 (04:05→10:05)
[2016-11-06 04:59] VITALS: BP 119/62
[2016-11-06] MEDS: PHENYTOIN SUSP UDC 100 MG/4 ML UDC PO SCH (05:30)
--- NOTE | 2016-11-06 07:00 | NUR ---
RN NOTES RECEIVED PT ON BED,A/Ox3, RESPIRATION EVEN AND UNLABORED, WITH TRACH TO COLLER AEROSOL ON 8L WITH 35% OF O2 , NO SOB NOTED, LT UA AV SHUNT IN PLACE WITH BRUIT SOUND , RT EJ HL SITE CDI, NO S\S INFECTION NOTED , BED LOCKED AND IN LOWEST POSITION ,SR UP x3, CALL LIGHT WITHIN REACH ,WILL CONT TO MONITOR PT CLOSELY AND NOTIFY MD FOR ANY SIGNIFICANT CHANGES
[2016-11-06 07:58] LABS: CALCIUM, SERUM 8.2 mg/dL (8.5-10.1); CREATININE 6.4 mg/dL (0.6-1.3); POTASSIUM 3.7 mmol/L (3.5-5.1)
[2016-11-06 08:00] VITALS: BP 128/60
[2016-11-06] MEDS: NICOTINE PATCH (14MG) 14 MG PATCH.TD24 TD SCH (08:13)
[2016-11-06] MEDS: LACTOBACILLUS RHAMNOSUS GG 1 EACH CAP.SPRINK PO SCH (08:13)
[2016-11-06] MEDS: methylPREDNISolone SOD SUCC 40 MG/ML VIAL IV SCH (08:14)
[2016-11-06] MEDS: ASPIRIN EC 81 MG TABLET.DR PO SCH (08:14)
[2016-11-06] MEDS: CALCIUM ACETATE 667 MG TABLET PO SCH (08:14)
[2016-11-06] MEDS: METOPROLOL TARTRATE 25 MG TABLET PO SCH (08:14)
[2016-11-06] MEDS: PANTOPRAZOLE 40 MG VIAL IV SCH (08:14)
[2016-11-06] MEDS: AMIODARONE HCL 200 MG TABLET PO SCH (08:15)
[2016-11-06] MEDS: risperiDONE 1 MG TABLET PO SCH (08:15)
[2016-11-06] MEDS: AMLODIPINE BESYLATE 5 MG TABLET PO SCH (08:15)
[2016-11-06] MEDS: LEVETIRACETAM (250 MG) 250 MG TABLET PO SCH (08:16)
[2016-11-06] MEDS: hydrALAZINE HCL 25 MG TABLET PO SCH (08:16)
[2016-11-06] MEDS: FOLIC ACID 1 MG TABLET PO SCH (08:16)
[2016-11-06] MEDS: LIDOCAINE 5% (PATCH) 1 EA PATCH TP SCH (08:18)
[2016-11-06 08:22] VITALS: BP 128/60
[2016-11-06] MEDS: NITROGLYCERIN PACKET 1 GM PACKET TOP SCH (08:22)
[2016-11-06] MEDS: MUPIROCIN OINT 2% 22 GM TUBE SCH (09:51)
--- NOTE | 2016-11-06 13:35 | NUR ---
RN NOTES REPORT GIVEN TO HEART TO HEART , PT LEFT THE FLOOR TO MAIN ENTRANCE ACCOMPANIED BY EMT PERONEAL IN STABLE CONDITION
== END 2016-11-06 13:43 | DRG 871 ==
LOC: ER 00:55 → ICU 03:56 → TELE1 11-03 13:32 → TELE-TD 11-03 14:07 → MEDSG1 11-04 09:40
PROC: 5A1945Z Respiratory Ventilation, 24-96 Consecutive Hours (ICD-10-PCS; principal; 2016-11-01)
PROC: 5A1D60Z (ICD-10-PCS; 2016-11-01)
DX: A41.9 Sepsis, unspecified organism (principal); J96.21 Acute and chronic respiratory failure with hypoxia; I21.4 Non-ST elevation (NSTEMI) myocardial infarction; N18.6 End stage renal disease; J18.9 Pneumonia, unspecified organism; J96.22 Acute and chronic respiratory failure with hypercapnia; I50.33 Acute on chronic diastolic (congestive) heart failure; J44.1 Chronic obstructive pulmonary disease with (acute) exacerbation; I13.2 Hypertensive heart and chronic kidney disease with heart failure and with stage 5 chronic kidney disease, or end stage renal disease; E87.1 Hypo-osmolality and hyponatremia; J44.0 Chronic obstructive pulmonary disease with (acute) lower respiratory infection; E87.2 Acidosis; E44.1 Mild protein-calorie malnutrition; D68.59 Other primary thrombophilia; I25.10 Atherosclerotic heart disease of native coronary artery without angina pectoris; I48.2 Chronic atrial fibrillation; K21.9 Gastro-esophageal reflux disease without esophagitis; Z86.73 Personal history of transient ischemic attack (TIA), and cerebral infarction without residual deficits; Z93.0 Tracheostomy status; Z99.2 Dependence on renal dialysis; E87.5 Hyperkalemia; D63.8 Anemia in other chronic diseases classified elsewhere; E66.01 Morbid (severe) obesity due to excess calories; E78.5 Hyperlipidemia, unspecified; G40.909 Epilepsy, unspecified, not intractable, without status epilepticus; F17.210 Nicotine dependence, cigarettes, uncomplicated; G89.4 Chronic pain syndrome; I48.0 Paroxysmal atrial fibrillation; Z79.899 Other long term (current) drug therapy; E83.39 Other disorders of phosphorus metabolism; G47.33 Obstructive sleep apnea (adult) (pediatric); J45.909 Unspecified asthma, uncomplicated; I27.2 Other secondary pulmonary hypertension; I44.7 Left bundle-branch block, unspecified; Z22.322 Carrier or suspected carrier of Methicillin resistant Staphylococcus aureus; Z68.35 Body mass index [BMI] 35.0-35.9, adult; Z79.82 Long term (current) use of aspirin; M25.512 Pain in left shoulder
CPT/HCPCS: 31720; 36415; 36600; 71010-TC; 73030-TC; 80048-TC; 80053-TC; 80061-TC; 80076-TC; 80185-TC; 80202-TC; 82803-TC; 82962-TC; 83605-TC; 83735-TC; 84100-TC; 84443-TC; 84484-TC; 85025-TC; 87040-TC; 87081-TC; 87086-TC; 90935-TC; 94002-TC; 94003-TC; 94640-TC; 94799-TC; 97001-TC; 97116-TC; 97530-TC; 99082-TC; A4216; A4606; A4623; A6402; A6403; C9113; J0610; J0885; J1165; J1170; J1200; J1815; J1953; J1956; J2543; J2920; J2930; J3370; J3490; J7030; J7050; J7060; L8501; Z7610

== ENCOUNTER 2016-11-12 09:32 | Emergency (ER) | payer BC, MEDICAID ==
[~2016-11-12] VITALS: Ht 167.6 cm; Wt 102.1 kg
--- NOTE | 2016-11-12 09:45 | NUR ---
BIB RA FROM HEART TO HEART FOR PICC LINE INSERTION, NO OTHER MEDICAL COMPLAINTS AT THIS TIME, WILL CONTINUE TO MONITOR CLOSELY.
--- NOTE | 2016-11-12 11:43 | NUR ---
CALLED AT [phone], TRANSFERRED CALL TO
[2016-11-12] MEDS ORDERED: ACETAMINOPHEN ES 500 MG TABLET PO ONE (13:00)
--- NOTE | 2016-11-12 13:55 | NUR ---
RT RT CALLED STAT TO DEEP TRACHEAL SUCTION THE PATIENT. SpO2 95%. SMALL AMOUNTS OF THIN/THICK BLOOD-TINGED SECRETIONS NOTED. PT IS AWAKE ALERT AND RESPONSIVE. NO SIGNS OF DISTRESS NOTED AT THIS TIME. WILL CONTINUE TO MONITOR THE PATIENT.
--- NOTE | 2016-11-12 13:55 | NUR ---
BRE, PICC RN, AT BEDSIDE
--- NOTE | 2016-11-12 14:45 | NUR ---
CALLED [facility] FOR TRANSPORT BACK TO HEART TO HEART, ETA 45 MIN
[2016-11-12] MEDS ORDERED: METOPROLOL TARTRATE 25 MG TABLET ONE (15:33)
[2016-11-12] MEDS ORDERED: hydrALAZINE HCL IV 20 MG VIAL ONE (15:34)
--- NOTE | 2016-11-12 15:49 | NUR ---
Patient discharged to home in stable condition. Written and verbal after care instructions given. Patient verbalizes understanding of instruction. MED RESPONSE PICKED UP PATIENT, NAD NOTED UPON DISCHARGE. PICC LINE PLACED SUCCESSFULLY
[2016-11-12] MEDS ORDERED: hydrALAZINE HCL IV 20 MG VIAL IV ONE (16:00)
[2016-11-12] MEDS ORDERED: METOPROLOL TARTRATE 25 MG TABLET PO ONE (16:00)
[2016-11-12 16:03] VITALS: BP 165/95
== END 2016-11-12 15:49 | disposition home or self-care (01) ==
LOC: ER 09:34
DX: Z45.2 Encounter for adjustment and management of vascular access device (principal); I12.0 Hypertensive chronic kidney disease with stage 5 chronic kidney disease or end stage renal disease; N18.6 End stage renal disease; K21.9 Gastro-esophageal reflux disease without esophagitis; Z86.73 Personal history of transient ischemic attack (TIA), and cerebral infarction without residual deficits; G89.4 Chronic pain syndrome; Z93.0 Tracheostomy status; Z79.82 Long term (current) use of aspirin
CPT/HCPCS: 31720; 36569 ×2; 96374; 99285; A4606 ×2; A4623; J0360; Z7610

== ENCOUNTER 2016-12-25 17:21 | Inpatient (IN) | payer BC, MEDICAID ==
[~2016-12-25] VITALS: Ht 162.6 cm; Wt 106.1 kg
--- NOTE | 2016-12-25 17:23 | NUR ---
BIBPA FROM HEART TO HEART CONGRUATE FOR ALTERED MENTAL STATUS. PLACED ON MONITOR. AWAITING MD ORDER
--- NOTE | 2016-12-25 17:30 | NUR ---
HAULING CONTRACTOR AT BEDSIDE BLOOD SAMPLE COLLECTED
--- NOTE | 2016-12-25 18:04 | NUR ---
RT AT [facility]
--- NOTE | 2016-12-25 18:04 | NUR ---
CONTAINER COORDINATOR AT BEDSIDE
[2016-12-25 18:10] LABS: ABG BASE EXCESS -3.7 mmol/L; ABG PCO2 35.1 mmHg (35.0-45.0); ABG PH 7.392 (7.350-7.450); ABG PO2 86.8 mmHg (75.0-100.0); AaDO2 230.2 mmHg; COHb 1.3 % (0.5-1.5); MetHb 0.4 % (0.0-1.5); O2Hb 93.4 % (94.0-97.0); SITE, ABG Right Radial; VENT MODE, BG 8lpm trach mask
--- NOTE | 2016-12-25 18:15 | NUR ---
RT WRIST #18 IV ACCESS.
[2016-12-25 18:17] LABS: INR 1.25 (0.87-1.13); PROTHROMBIN TIME 13.1 SECS (9.5-12.7)
--- NOTE | 2016-12-25 18:17 | NUR ---
PT UNABLE TO STAY STILL FOR CT SCAN, ER WILL CALL WHEN READY.
[2016-12-25 18:18] LABS: BILIRUBIN,DIRECT 0.4 mg/dL (0.0-0.2); BILIRUBIN,TOTAL 0.7 mg/dL (0.2-1.0); CALCIUM, SERUM 8.4 mg/dL (8.5-10.1); POTASSIUM 5.4 mmol/L (3.5-5.1); TOTAL PROTEIN, SERUM 6.7 g/dL (6.4-8.2)
[2016-12-25 18:20] LABS: TROPONIN I 0.053 ng/mL (0.00-0.056)
[2016-12-25 18:22] LABS: BASOPHILS % (AUTO) 0.4 % (0.0-2.0); EOSINOPHILS # (AUTO) 0.2 /CMM (0.0-0.7); EOSINOPHILS % (AUTO) 2.4 % (0.0-6.0); LYMPHOCYTES # (AUTO) 1.2 /CMM (0.8-4.8); LYMPHOCYTES % (AUTO) 12.3 % (20.0-44.0); MEAN CORPUSCULAR HEMOGLOBIN 32 PG (26.0-33.0); MEAN CORPUSCULAR HGB CONC 33 g/dl (31.0-36.0); MEAN CORPUSCULAR VOLUME 96 fL (80-96); MONOCYTES # (AUTO) 0.9 /CMM (0.1-1.30); MONOCYTES % (AUTO) 9.5 % (2.0-12.0); NEUTROPHILS # (AUTO) 7.6 /CMM (1.8-8.9); NEUTROPHILS % (AUTO) 75.4 % (43.0-81.0); PLATELET COUNT (AUTO) 183 /CMM (150-450); RDW COEFFICIENT OF VARIATION 15.2 (11.5-15.0); WHITE BLOOD COUNT (AUTO) 9.9 K/uL (4.3-11.0)
[2016-12-25 18:25] LABS: CREATININE 9.4 mg/dL (0.6-1.3)
[2016-12-25 18:27] LABS: RED BLOOD CELL COUNT(AUTO) 1.73 MIL/uL (4.5-6.0)
[2016-12-25 18:28] LABS: HEMATOCRIT 17 % (39-51); HEMOGLOBIN 5.4 g/dL (13.5-17.5)
--- NOTE | 2016-12-25 18:54 | NUR ---
PT TAKEN TO CT VIA [facility]
--- NOTE | 2016-12-25 19:16 | NUR ---
URINE SAMPLE COLLECTED SENT TO LAB
--- NOTE | 2016-12-25 19:29 | NUR ---
PT C/O L SHOULDER PAIN AND L LEG PAIN. ER MD MADE AWARE WITH NO ORDERS RECEIVED. WILL CONTINUE TO MONITOR PT. PENDING CT HEAD RESULT.
[2016-12-25 19:30] LABS: EOSINOPHILS % (MANUAL) 2 % (0-4); LYMPHOCYTES % (MANUAL) 17 % (16-48); MONOCYTES % (MANUAL) 6 % (0-11.0); NEUTROPHILS % (MANUAL) 75 (42-76)
[2016-12-25 19:37] LABS: APPEARANCE,URINE Clear (CLEAR); BILIRUBIN,URINE SMALL (NEGATIVE); BLOOD, URINE Negative Ery/uL (NEGATIVE); COLOR,URINE Yellow (YELLOW); KETONES,URINE Negative (NEGATIVE); LEUKOCYTE ESTERASE ,URINE Negative (NEGATIVE); NITRITE, URINE Negative (NEGATIVE); PH,URINE 5.5 (5.0-8.0); PROTEIN,URINE 100 mg/dl (NEGATIVE); UGLUCOSE Negative (NEGATIVE); UROBILINOGEN,URINE 0.2 EU/dL (0.2)
--- NOTE | 2016-12-25 19:48 | NUR ---
ER MD SPOKE TO MARILOU OSORIO DNP REGARDING PT ADMISSION. WILL CALL FOR REPORT WHEN BED IS AVAILABLE.
[2016-12-25 20:10] LABS: BACTERIA,URINE Few /HPF (None Seen); RBC,URINE 0-2 /HPF (0-2); SQUAMOUS EPITHELIAL CELL,UR Few /HPF (None Seen); WBC,URINE 0-2 /HPF (0-3)
--- NOTE | 2016-12-25 20:13 | NUR ---
Patient will be transfer to [facility] bed # 118-2, report given to Bailey/rn.
--- NOTE | 2016-12-25 20:40 | NUR ---
teletypist notes received pts and report from er nurse greg, pts is 46 y/o male a/ox3 able to make needs known , admitted under the care of dr walsh with admitting dx of anemia, with low hgb of 5.4 , routine admission order done , body checked done noted with multiple bruises on the abdomen , thigh and legs . ,pts on trach shiley #6 on 40% fio2 via collar mask , on tele sr on the monitor , no sob no distress noted complain of generalized pain 12/28 ,relayed with dr walsh awaiting for order, all due meds given as ordered , call light within reach suction secretion done . pts on r hand iv heplock with g #18 intact and patent . kept pts comfortable in bed .will continue to monitor pts.
[2016-12-25 21:00] VITALS: BP 136/79
[2016-12-25] MEDS ORDERED: LIDOCAINE 5% (PATCH) 1 EA PATCH TP SCH (21:30)
[2016-12-25] MEDS ORDERED: Z GUARD REMEDY 2 OZ OINT TP PRN (21:30)
[2016-12-25] MEDS ORDERED: ACETAMINOPHEN 325 MG TABLET PO PRN (21:30)
[2016-12-25] MEDS ORDERED: ONDANSETRON HCL/PF 4 MG/2 ML VIAL IVP PRN (21:30)
[2016-12-25] MEDS ORDERED: TRAMADOL HCL 50 MG TABLET ONE (21:40)
[2016-12-25] MEDS ORDERED: ZOLPIDEM TARTRATE 5 MG TABLET ONE (21:41)
[2016-12-25] MEDS ORDERED: risperiDONE 1 MG TABLET ONE (21:42)
[2016-12-25] MEDS ORDERED: ATORVASTATIN 10 MG TABLET ONE (21:42)
[2016-12-25] MEDS ORDERED: LIDOCAINE 5% (PATCH) 1 EA PATCH TP ONE (21:52)
[2016-12-25] MEDS ORDERED: IV NS 0.9% 250 ML IV ONE (21:57)
[2016-12-25] MEDS ORDERED: BLOOD IV SET 1 EA INFUS.SET MC ONE (21:57)
[2016-12-25 22:08] VITALS: BP 130/79
--- NOTE | 2016-12-25 22:08 | NUR ---
telehealth nurse notes ist unit of blood started as ordered , no reaction or complication noted v/s stable afebrile, will continue to monitor pts.
[2016-12-25] MEDS: TRAMADOL HCL 50 MG TABLET PO SCH (22:14)
[2016-12-25] MEDS: ZOLPIDEM TARTRATE 5 MG TABLET PO SCH (22:15)
[2016-12-25] MEDS: risperiDONE 1 MG TABLET PO SCH (22:15)
[2016-12-25] MEDS: ATORVASTATIN 10 MG TABLET PO SCH (22:15)
[2016-12-25] MEDS ORDERED: diphenhydrAMINE HCL 50 MG/ML VIAL ONE (22:16)
[2016-12-25 22:23] VITALS: BP 130/76
[2016-12-25 22:53] VITALS: BP 129/75
[2016-12-25 23:14] VITALS: BP 131/86
[2016-12-25] MEDS: diphenhydrAMINE HCL 50 MG/ML VIAL IV PRN (23:30)
[2016-12-25] MEDS ORDERED: ALBUTEROL FS 2.5 MG/3 ML VIAL.NEB ONE (23:51)
[2016-12-25] MEDS ORDERED: IPRATROPIUM NEB FS 0.5 MG/2.5 ML AMPUL.NEB ONE (23:51)
[2016-12-26] VITALS (13 sets, daily range): BP systolic 106–151; BP diastolic 58–84
--- NOTE | 2016-12-26 00:52 | NUR ---
telemarketing sales representative notes ist unit of blood completed no reaction noted , pts comfortable in bed. v/s stable afebrile.
--- NOTE | 2016-12-26 01:14 | NUR ---
telephone surveyor notes 2nd unit of prbc started at 0114 hrs , v/s stable afebrile .no reaction noted at this time , will continue to monitor pts.
[2016-12-26] MEDS ORDERED: IV NS 0.9% 1,000 ML ONE (02:17)
[2016-12-26] MEDS ORDERED: IV SET PRIMARY PUMP SET 1 EA INFUS.SET MC ONE (02:18)
--- NOTE | 2016-12-26 03:33 | NUR ---
telecommunication equipment repairer notes 2nd unit of prbc completed at 03:32hrs no reaction noted , v/s stable afebrile . pts comfortable in bed .will continue to monitor pts.
[2016-12-26] MEDS ORDERED: ALBUTEROL FS 2.5 MG/3 ML VIAL.NEB ONE (03:53)
[2016-12-26] MEDS ORDERED: IPRATROPIUM NEB FS 0.5 MG/2.5 ML AMPUL.NEB ONE (03:53)
[2016-12-26] MEDS: IPRATROPIUM NEB FS 0.5 MG/2.5 ML AMPUL.NEB NEB SCH ×7 (03:58→23:52)
[2016-12-26] MEDS: ALBUTEROL FS 2.5 MG/3 ML VIAL.NEB NEB SCH ×7 (03:58→23:52)
[2016-12-26] MEDS: IV NS 0.9% 1,000 ML IV PRN ×2 (04:14→17:13)
[2016-12-26] MEDS ORDERED: TRAMADOL HCL 50 MG TABLET ONE (04:39)
[2016-12-26] MEDS ORDERED: hydrALAZINE HCL 25 MG TABLET ONE (04:39)
[2016-12-26] MEDS ORDERED: LEVETIRACETAM (250 MG) 250 MG TABLET PO ONE (04:39)
[2016-12-26] MEDS: TRAMADOL HCL 50 MG TABLET PO SCH ×3 (04:59→21:16)
[2016-12-26] MEDS: hydrALAZINE HCL 25 MG TABLET PO SCH ×3 (05:00→21:00)
[2016-12-26] MEDS ORDERED: LEVETIRACETAM (250 MG) 250 MG TABLET PO SCH ×2 (05:00→13:00)
[2016-12-26] MEDS ORDERED: diphenhydrAMINE HCL 50 MG/ML VIAL ONE (05:36)
[2016-12-26 05:37] LABS: BASOPHILS # (AUTO) 0.1 /CMM (0.0-0.2); BASOPHILS % (AUTO) 0.7 % (0.0-2.0); EOSINOPHILS # (AUTO) 0.3 /CMM (0.0-0.7); EOSINOPHILS % (AUTO) 3.6 % (0.0-6.0); HEMATOCRIT 23 % (39-51); HEMOGLOBIN 7.7 g/dL (13.5-17.5); MEAN CORPUSCULAR HEMOGLOBIN 32 PG (26.0-33.0); MEAN CORPUSCULAR HGB CONC 33 g/dl (31.0-36.0); MEAN CORPUSCULAR VOLUME 96 fL (80-96); MONOCYTES # (AUTO) 0.7 /CMM (0.1-1.30); MONOCYTES % (AUTO) 7.9 % (2.0-12.0); NEUTROPHILS # (AUTO) 6.9 /CMM (1.8-8.9); NEUTROPHILS % (AUTO) 76.8 % (43.0-81.0); PLATELET COUNT (AUTO) 151 /CMM (150-450); RDW COEFFICIENT OF VARIATION 15.5 (11.5-15.0); RED BLOOD CELL COUNT(AUTO) 2.42 MIL/uL (4.5-6.0)
[2016-12-26] MEDS: diphenhydrAMINE HCL 50 MG/ML VIAL IV PRN ×2 (05:46→14:10)
[2016-12-26 05:55] LABS: ALBUMIN 2.7 g/dL (3.4-5.0); BILIRUBIN,TOTAL 0.7 mg/dL (0.2-1.0); CALCIUM, SERUM 7.8 mg/dL (8.5-10.1); CREATININE 9.4 mg/dL (0.6-1.3); MAGNESIUM 2.2 mg/dL (1.8-2.4); PHOSPHORUS 4.5 mg/dL (2.5-4.9); POTASSIUM 4.9 mmol/L (3.5-5.1); TOTAL PROTEIN, SERUM 6.5 g/dL (6.4-8.2)
[2016-12-26 05:56] LABS: THYROID STIMULATING HORMONE 1.341 uIU/mL (0.358-3.74)
--- NOTE | 2016-12-26 06:14 | NUR ---
agent telegrapher notes pts remains on isoflex bed , awake alert , no sob no distress noted due meds given as ordered , remain on trach on 40% fio2 via collar mask , on ivf of ns at 75cc/hr infusing well , latest h/h is 7.7 , post 2 units of prbc, will endorse to rn day shift for continuity of care.
--- NOTE | 2016-12-26 07:15 | NUR ---
RN INITIAL NOTES: REC'D PT ASLEEP ON BED, EASILY AROUSABLE, NOT IN ANY DISTRESS, A/O X3. HAS TRACH (SHILEY 6), ON COOL AEROSOL, O2 AT 4LPM, NO SOB NOTED. ON TELEMONITOR, SR. L AV SHUNT NOTED (+) FOR BRUIT, THRILL. PT HAS R HAND G18, PL, PATENT & INTACT W/ NS AT 75 CC/HR INFUSING WELL, NO S/SX OF INFECTION/ INFILTRATION NOTED. PROVIDED COMFORT & SAFETY MEASURES. CALL LIGHT PLACED W/IN REACH. BED KEPT LOW & IN LOCKED POS. WILL CONTINUE TO MONITOR.
[2016-12-26] MEDS: AMLODIPINE BESYLATE 5 MG TABLET PO SCH ×2 (09:00→17:00)
[2016-12-26] MEDS ORDERED: PHENYTOIN EXTENDED RELEASE 100 MG CAPSULE PO SCH ×3 (09:00→17:00)
[2016-12-26] MEDS ORDERED: PANTOPRAZOLE 40 MG TABLET.DR PO SCH (09:00)
[2016-12-26] MEDS ORDERED: LEVETIRACETAM SOL (5 ML) 100 MG/ML UDC PO SCH (09:00)
[2016-12-26] MEDS: METOPROLOL TARTRATE 25 MG TABLET PO SCH ×3 (09:00→17:00)
[2016-12-26] MEDS ORDERED: FLUTICASONE/SALMETEROL DISKUS IH SCH (09:00)
[2016-12-26] MEDS: CALCIUM ACETATE 667 MG TABLET PO SCH ×3 (09:20→17:10)
[2016-12-26] MEDS: ASPIRIN EC 325 MG TABLET.DR PO SCH (09:20)
[2016-12-26] MEDS: FOLIC ACID 1 MG TABLET PO SCH (09:24)
[2016-12-26] MEDS: AMIODARONE HCL 200 MG TABLET PO SCH (09:26)
[2016-12-26] MEDS: PANTOPRAZOLE 40 MG TABLET.DR PO SCH (09:26)
--- NOTE | 2016-12-26 10:10 | NUR ---
NON-ADMIN NOTE CLEARED PINK-STK EMAR FOR UP-TO-DATE ADMINISTRATION OF MEDICATION SCHEDULE FOR PATIENT SAFETY.
[2016-12-26] MEDS: FLUTICASONE/VILANTEROL 1 EACH BLST.W.DEV IH SCH (10:15)
[2016-12-26] MEDS: LIDOCAINE 5% (PATCH) 1 EA PATCH TP SCH (10:37)
--- NOTE | 2016-12-26 10:57 | NUR ---
ANGELICA NOTES: ANDRY COLBERT C/O Addendum: 12/26/16 at 1110 by SATYA PINA RN CORRECTION: ANDRY Sidhu/Krys BURNHAM
[2016-12-26] MEDS ORDERED: EPOETIN ALFA (10,000 UNIT) 10,000 UNIT/ML VIAL IV ONE (11:00)
--- NOTE | 2016-12-26 13:38 | NUR ---
RN NOTES: HD ENDED, 2L OUTPUT. PT TOLERATED WELL. PT SEEN & EXAMINED BY DR. LIAO.
[2016-12-26] MEDS: PHENYTOIN EXTENDED RELEASE 100 MG CAPSULE PO SCH (17:10)
--- NOTE | 2016-12-26 19:06 | NUR ---
RN CLOSING NOTES: NO ACUTE CHANGES W/IN SHIFT. NO SOB, DENIES ANY PAIN/ DISCOMFORT. TOLERATED COOL AEROSOL VIA TRACH, NO SOB. L AV SHUNT KEPT INTACT W/ CLEAN& DRY DRESSING. R HAND G18, KEPT PATENT & INTACT W/ NS AT 75 CC/HR INFUSING WELL, NO S/SX OF INFECTION/ INFILTRATION NOTED. KEPT WELL RESTED. CALL LIGHT PLACED W/IN REACH. BED KEPT LOW & IN LOCKED POS. WILL ENDORSE TO PM RN FOR AGATHA.
[2016-12-26] MEDS: ZOLPIDEM TARTRATE 5 MG TABLET PO SCH (21:16)
[2016-12-26] MEDS: LEVETIRACETAM SOL (5 ML) 100 MG/ML UDC PO SCH (21:16)
[2016-12-26] MEDS: risperiDONE 1 MG TABLET PO SCH (21:16)
[2016-12-26] MEDS: ATORVASTATIN 10 MG TABLET PO SCH (21:17)
[2016-12-27] VITALS: BP 113/63
[2016-12-27] MEDS: HYDROCODONE/APAP 5/325MG 1 EACH TABLET PO PRN ×3 (00:14→15:09)
[2016-12-27] MEDS: diphenhydrAMINE HCL 50 MG/ML VIAL IV PRN ×4 (00:16→20:36)
[2016-12-27] MEDS: PHENYTOIN EXTENDED RELEASE 100 MG CAPSULE PO SCH ×3 (00:32→17:22)
[2016-12-27] MEDS: IPRATROPIUM NEB FS 0.5 MG/2.5 ML AMPUL.NEB NEB SCH ×5 (03:33→20:14)
[2016-12-27] MEDS: ALBUTEROL FS 2.5 MG/3 ML VIAL.NEB NEB SCH ×5 (03:33→20:14)
[2016-12-27 04:00] VITALS: BP 98/56
[2016-12-27] MEDS: hydrALAZINE HCL 25 MG TABLET PO SCH ×3 (05:00→20:43)
[2016-12-27] MEDS: TRAMADOL HCL 50 MG TABLET PO SCH ×3 (05:57→20:35)
[2016-12-27] MEDS: IV NS 0.9% 1,000 ML IV PRN (06:42)
[2016-12-27 07:20] LABS: BASOPHILS % (AUTO) 0.4 % (0.0-2.0); EOSINOPHILS # (AUTO) 0.4 /CMM (0.0-0.7); EOSINOPHILS % (AUTO) 5.6 % (0.0-6.0); HEMATOCRIT 23 % (39-51); HEMOGLOBIN 7.6 g/dL (13.5-17.5); LYMPHOCYTES # (AUTO) 0.9 /CMM (0.8-4.8); LYMPHOCYTES % (AUTO) 13.2 % (20.0-44.0); MEAN CORPUSCULAR HEMOGLOBIN 32 PG (26.0-33.0); MEAN CORPUSCULAR HGB CONC 33 g/dl (31.0-36.0); MEAN CORPUSCULAR VOLUME 96 fL (80-96); MONOCYTES # (AUTO) 0.4 /CMM (0.1-1.30); MONOCYTES % (AUTO) 5.8 % (2.0-12.0); NEUTROPHILS # (AUTO) 5.2 /CMM (1.8-8.9); RDW COEFFICIENT OF VARIATION 15.9 (11.5-15.0); RED BLOOD CELL COUNT(AUTO) 2.39 MIL/uL (4.5-6.0); WHITE BLOOD COUNT (AUTO) 6.9 K/uL (4.3-11.0)
--- NOTE | 2016-12-27 07:30 | NUR ---
RN NOTES: RECEIVED PT IN BED, ON UPRIGHT SITTING POSITION. A/O X3. HAS TRACH (SHILEY 6), ON COOL AEROSOL, O2 AT 4LPM, NO SOB NOTED. ON TELEMONITOR, SR. L AV SHUNT NOTED (+) FOR BRUIT, THRILL. PT HAS R HAND G18, SL, PATENT & INTACT W/ NS AT 75 CC/HR INFUSING WELL, NO S/SX OF INFECTION/ INFILTRATION NOTED. PT NOTED WITH C/O GENERALIZED PAIN PS 6/10. PT REQUESTING FOR BENADRYL PRN. KEPT COMFORTABLE. PROVIDED COMFORT & SAFETY MEASURES. CALL LIGHT PLACED W/IN REACH. BED KEPT LOW & IN LOCKED POS. WILL CONTINUE TO MONITOR.
[2016-12-27 07:39] LABS: POTASSIUM 4.4 mmol/L (3.5-5.1)
[2016-12-27 07:41] LABS: CREATININE 7.5 mg/dL (0.6-1.3)
[2016-12-27 08:00] VITALS: BP 117/70
[2016-12-27] MEDS: LEVETIRACETAM SOL (5 ML) 100 MG/ML UDC PO SCH ×2 (08:18→20:46)
[2016-12-27] MEDS: FLUTICASONE/VILANTEROL 1 EACH BLST.W.DEV IH SCH (08:18)
[2016-12-27] MEDS: LIDOCAINE 5% (PATCH) 1 EA PATCH TP SCH (08:18)
[2016-12-27] MEDS: CALCIUM ACETATE 667 MG TABLET PO SCH ×3 (08:19→17:22)
[2016-12-27] MEDS: PANTOPRAZOLE 40 MG TABLET.DR PO SCH (08:19)
[2016-12-27] MEDS: ASPIRIN EC 325 MG TABLET.DR PO SCH (08:19)
[2016-12-27] MEDS: AMLODIPINE BESYLATE 5 MG TABLET PO SCH ×2 (08:20→17:23)
[2016-12-27] MEDS: AMIODARONE HCL 200 MG TABLET PO SCH (08:20)
[2016-12-27] MEDS: FOLIC ACID 1 MG TABLET PO SCH (08:20)
[2016-12-27] MEDS: LORAZEPAM 1 MG TABLET PO PRN ×2 (08:20→15:10)
[2016-12-27] MEDS: METOPROLOL TARTRATE 25 MG TABLET PO SCH ×3 (08:20→17:23)
[2016-12-27 09:57] LABS: PLATELET COUNT (AUTO) 177 /CMM (150-450)
[2016-12-27 12:00] VITALS: BP 112/65
--- NOTE | 2016-12-27 12:30 | NUR ---
RN NOTES SPOKE WITH DR LIAO, INFORMED MD PT POSITIVE FOR MRSA NARE. PER MD CLIFTON TO START ON BACTROBAN Q12H AND CLARIFY WITH MD REGARDING IVF, PER MD CLIFTONAY TO DC IVF. ALL ORDER READ BACK NOTED AND CARRIED OUT
[2016-12-27 16:00] VITALS: BP 106/62
--- NOTE | 2016-12-27 19:30 | NUR ---
RN OPENING NOTES RECEIVED REPORT FROM CLEMENCIA DOMINGUEZ. PATIENT A/A/O X3. NO RESPIRATORY DISTRESS NOTED, BREATHING EVEN AND UNLABORED. TRACH MASK ON COOL AEROSOL 40%, TOLERATING WELL. SKIN INTACT, WARM TO TOUCH. ON TELE SINUS RHYTHM IN THE 70S. RIGHT HAND #18 IV SITE CDI. USES DIAPER AND URINAL. SIDE RAILS UP, BED LOCKED AND IN LOWEST POSITION, CALL LIGHT WITHIN REACH. WILL CONTINUE TO MONITOR.
[2016-12-27 20:00] VITALS: BP 120/75
[2016-12-27] MEDS: risperiDONE 1 MG TABLET PO SCH (21:11)
[2016-12-27] MEDS: ZOLPIDEM TARTRATE 5 MG TABLET PO SCH (21:12)
[2016-12-27] MEDS: ATORVASTATIN 10 MG TABLET PO SCH (21:18)
[2016-12-27] MEDS: MUPIROCIN OINT 2% 22 GM TUBE SCH (21:19)
[2016-12-28] VITALS: BP 124/79
[2016-12-28] MEDS: IPRATROPIUM NEB FS 0.5 MG/2.5 ML AMPUL.NEB NEB SCH ×7 (00:29→23:34)
[2016-12-28] MEDS: ALBUTEROL FS 2.5 MG/3 ML VIAL.NEB NEB SCH ×7 (00:29→23:34)
[2016-12-28 00:32] VITALS: BP 120/75
[2016-12-28] MEDS: PHENYTOIN EXTENDED RELEASE 100 MG CAPSULE PO SCH ×3 (00:42→17:22)
[2016-12-28] MEDS: diphenhydrAMINE HCL 50 MG/ML VIAL IV PRN ×4 (03:04→23:59)
[2016-12-28 04:00] VITALS: BP 118/72
[2016-12-28] MEDS: TRAMADOL HCL 50 MG TABLET PO SCH ×3 (04:57→21:44)
[2016-12-28] MEDS: hydrALAZINE HCL 25 MG TABLET PO SCH ×3 (04:58→21:45)
[2016-12-28] MEDS: HYDROCODONE/APAP 5/325MG 1 EACH TABLET PO PRN ×4 (06:49→23:59)
[2016-12-28 06:59] LABS: BASOPHILS % (AUTO) 0.4 % (0.0-2.0); EOSINOPHILS # (AUTO) 0.7 /CMM (0.0-0.7); HEMATOCRIT 21 % (39-51); HEMOGLOBIN 7.1 g/dL (13.5-17.5); LYMPHOCYTES # (AUTO) 0.8 /CMM (0.8-4.8); LYMPHOCYTES % (AUTO) 12.5 % (20.0-44.0); MEAN CORPUSCULAR HEMOGLOBIN 32 PG (26.0-33.0); MEAN CORPUSCULAR HGB CONC 33 g/dl (31.0-36.0); MEAN CORPUSCULAR VOLUME 96 fL (80-96); MONOCYTES # (AUTO) 0.5 /CMM (0.1-1.30); MONOCYTES % (AUTO) 6.9 % (2.0-12.0); NEUTROPHILS # (AUTO) 4.6 /CMM (1.8-8.9); NEUTROPHILS % (AUTO) 70.2 % (43.0-81.0); PLATELET COUNT (AUTO) 204 /CMM (150-450); RDW COEFFICIENT OF VARIATION 15.6 (11.5-15.0); RED BLOOD CELL COUNT(AUTO) 2.23 MIL/uL (4.5-6.0); WHITE BLOOD COUNT (AUTO) 6.5 K/uL (4.3-11.0)
--- NOTE | 2016-12-28 07:06 | NUR ---
RN CLOSING NOTES: PATIENT ASLEEP IN BED. NO RESPIRATORY DISTRESS NOTED, TRACH MASK TOLERATED WELL. RIGHT HAND IV SITE INTACT AND PATENT. LEFT UPPER ARM AV SHUNT, BRUIT AND THRILL PRESENT. PATIENT NEEDS MORE ATTENTION. ALL NEEDS ATTENDED. 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 PHOTO TAKEN. PATIENT REMAIN IN STABLE CONDITION. WILL ENDORSE CONTUINITY OF CARE TO AM NURSE.
[2016-12-28 07:20] LABS: CALCIUM, SERUM 8.1 mg/dL (8.5-10.1); POTASSIUM 4.7 mmol/L (3.5-5.1)
[2016-12-28 07:22] LABS: CREATININE 8.2 mg/dL (0.6-1.3)
[2016-12-28 08:00] VITALS: BP 99/56
--- NOTE | 2016-12-28 08:00 | NUR ---
Pt in bed awake, alert, oriented x3 trach in place but able to communicate, able to eat, reposition for comfort, multiple bruises over body specially to LLE edematous 3+ and RLE 1 +, pt is constanlly in pain, on HD site clean and dry,call light in reach.
[2016-12-28] MEDS: MUPIROCIN OINT 2% 22 GM TUBE SCH ×2 (09:00→21:40)
[2016-12-28] MEDS: FLUTICASONE/VILANTEROL 1 EACH BLST.W.DEV IH SCH (09:00)
[2016-12-28] MEDS: AMLODIPINE BESYLATE 5 MG TABLET PO SCH ×2 (09:00→17:00)
[2016-12-28] MEDS: LEVETIRACETAM SOL (5 ML) 100 MG/ML UDC PO SCH ×2 (09:11→21:39)
[2016-12-28] MEDS: AMIODARONE HCL 200 MG TABLET PO SCH (09:12)
[2016-12-28] MEDS: CALCIUM ACETATE 667 MG TABLET PO SCH ×3 (09:12→17:22)
[2016-12-28] MEDS: FOLIC ACID 1 MG TABLET PO SCH (09:13)
[2016-12-28] MEDS: PANTOPRAZOLE 40 MG TABLET.DR PO SCH (09:13)
[2016-12-28] MEDS: ASPIRIN EC 325 MG TABLET.DR PO SCH (09:13)
[2016-12-28] MEDS: METOPROLOL TARTRATE 25 MG TABLET PO SCH ×3 (09:14→17:22)
--- NOTE | 2016-12-28 10:17 | NUR ---
WOUND CARE CONSULT: PT PRESENTS WITH MULTIPLE AREAS OF BRUISING TO BODY, PRESENT ON ADMISSION WELL RT FOREARM WOUND WITH INDURATION, ALSO POA. RECOMMEND SURGICAL CONSULT. PT ON SHANNON ISOFLEX LOW AIRLOSS BED. ALL SKIN PROTECTION MEASURES IN PLACE AND DISCUSSED WITH NURSING STAFF. WILL SEE PRN. LEO IN AGREEMENT WITH PLAN OF CARE. Addendum: 12/28/16 at 1022 by MALENA REYES WNDNU Amended: Links added.
[2016-12-28] MEDS: LORAZEPAM 1 MG TABLET PO PRN ×3 (12:25→23:59)
[2016-12-28] MEDS: LIDOCAINE 5% (PATCH) 1 EA PATCH TP SCH (12:26)
--- NOTE | 2016-12-28 13:00 | NUR ---
Dr Salmeron in unit and was refer to him regarding swelling to LLE and the big bruise that pt has in his LLE and L thigh, md will see pt later and evaluate LLE.
--- NOTE | 2016-12-28 14:30 | NUR ---
after Dr leary saw pt today new orders obtained for US doppler study to LLE r/u dvt, pt in bed awake and requires constanly pain meds and benadryl will keep monitoring pt.
--- NOTE | 2016-12-28 16:11 | NUR ---
RT MED NOTE UNABLE TO ADMINISTER HHN, PT ON DIALYSIS, MACHINE BLOCKING ACCESS TO PT AND RT EQUIPMENT
[2016-12-28 16:25] VITALS: BP 107/57
--- NOTE | 2016-12-28 19:20 | NUR ---
RN MS INITIAL NOTE RECEIVED PT IN NO ACUTE DISTRESS. PT IS A/O X2 FORGETFUL/ANXIOUS. PT HAS TRACH TUBE WITH NO VENT ON 10 LPM 02. TRACH SITE IS CLEANA ND INTACT AND SUCTIONED WITH MINIMAL FLUIDS. 02 SATURATION % AT 100. PT HAS ACTIVE BOWEL SOUNDS WITH NO BM/URINE. ALBINO AV SHUNT WITH A R HAND 18 G IV LINE WHICH IS PATENT AND CLEAN. AGA IN LOW LOCK POSITION WITH RAILS UP X2. CALL LIGHT WIHTIN REACH AND ALL SAFETY MEASURES ENSURED. WILL CONTINUE TO MONITOR.
[2016-12-28 20:00] VITALS: BP 115/74
[2016-12-28 21:10] LABS: ABG BASE EXCESS -1.5 mmol/L; ABG OXYGEN SATURATION 99.2 % (92.0-98.5); ABG PCO2 41.9 mmHg (35.0-45.0); ABG PO2 277.4 mmHg (75.0-100.0); AaDO2 393.7 mmHg; COHb 1.8 % (0.5-1.5); MetHb 0.8 % (0.0-1.5); O2Hb 96.6 % (94.0-97.0); SITE, ABG Right Radial; VENT MODE, BG BVM
--- NOTE | 2016-12-28 21:30 | NUR ---
RN NOTE: WALKED IN TO PATIENT ROOM WHEN I NOTICED THAT TRACH CANULA WAS REMOVED FROM HIS NECK AND PT HAD NO 02 BEING ADMINISTERED TO HIM. HE WAS PLACED ON THE SIDE OF THE BED IF HE WAS GOING TO TRY AND GET UP BUT I ASKED HIM "ARE YOU OKAY SIR? DO YOU NEED HELP" HE STARTED TO LOOK CYANOTIC/FALL BACKWARDS ONTO THE BED BUT I CAUGHT HIM BEFORE HE COULD INJURE HIMSELF. I CALLED FOR HELP, WE TRIED TO REPLACE THE CANNULA IN HIS NECK TO ADMINISTER BAG VALVE PUMPS/02 BUT WERE UNABLE TO SO JAVA SYBASE DEVELOPER WAS CALLED. ABGS WERE TAKEN, ORDER FOR RESTRAINTS WAS RECEIVED, AND RT WAS ABLE TO REINSERT THE TRACH IN ORDER TO ADMINISTER CORRECTIVE OXYGEN FLOW TO THE PATIENT. CURRENTLY 02 SAT IS AT 100 WITH BLOOD PRESSURE OF 118/74 WITH PULSE OF 77. WILL CONTINUE TO MONITOR THE PT.
[2016-12-28] MEDS: ATORVASTATIN 10 MG TABLET PO SCH (21:50)
[2016-12-28] MEDS: ZOLPIDEM TARTRATE 5 MG TABLET PO SCH (21:51)
[2016-12-28] MEDS: risperiDONE 1 MG TABLET PO SCH (21:51)
[2016-12-29] VITALS: BP 115/74
[2016-12-29] MEDS: PHENYTOIN EXTENDED RELEASE 100 MG CAPSULE PO SCH ×3 (01:07→17:42)
[2016-12-29] MEDS: ALBUTEROL FS 2.5 MG/3 ML VIAL.NEB NEB SCH ×5 (03:56→19:40)
[2016-12-29] MEDS: IPRATROPIUM NEB FS 0.5 MG/2.5 ML AMPUL.NEB NEB SCH ×6 (03:56→23:59)
[2016-12-29 04:00] VITALS: BP 118/77
[2016-12-29] MEDS: hydrALAZINE HCL 25 MG TABLET PO SCH ×3 (04:52→20:59)
[2016-12-29] MEDS: TRAMADOL HCL 50 MG TABLET PO SCH ×3 (04:53→21:23)
--- NOTE | 2016-12-29 07:38 | NUR ---
RN MS CLOSING NOTE PT REMAINS IN NO ACUTE DISTRESS AT END OF SHIFT. WALKED INTO PATIENT ROOM AT 2130 AND NOTICED TRACH CANNULA WAS PULLED OUT BY PT AND SHORTLY AFTER HE TURNED CYANOTIC AND FELL ABCKWARDS BEFORE I CAUGHT HIM MID FALL FROM SITTING ON THE SIDE OF THE BED TO THE OTHER SIDE OF THE BED. CEMENTER MACHINE JOINER WAS CALLED BUT WE WERE ABLE TO BAG HIM AND REGAIN CONSCIOUSNESS/PULSE/100% 02 SAT. RESTRAINTS WERE ORDERED AND PLACED. ALL MEDICATIONS WERE TAKEN AND TOLERATED ORDERED. WILL ENDORSE CARE TO AM RN FOR CONTINUITY OF CARE. ALL DUE MEDICATIONS TOLERATED WELL. PT BED IN LOW POSITION WITH X2 RAILS UP IN COMFORTABLE POSITION.
[2016-12-29 08:00] VITALS: BP 134/80
[2016-12-29] MEDS: FLUTICASONE/VILANTEROL 1 EACH BLST.W.DEV IH SCH (09:00)
[2016-12-29 10:04] LABS: BASOPHILS # (AUTO) 0.1 /CMM (0.0-0.2); BASOPHILS % (AUTO) 0.7 % (0.0-2.0); EOSINOPHILS # (AUTO) 0.6 /CMM (0.0-0.7); HEMATOCRIT 24 % (39-51); HEMOGLOBIN 7.9 g/dL (13.5-17.5); LYMPHOCYTES # (AUTO) 1.1 /CMM (0.8-4.8); LYMPHOCYTES % (AUTO) 14.2 % (20.0-44.0); MEAN CORPUSCULAR HEMOGLOBIN 31 PG (26.0-33.0); MEAN CORPUSCULAR HGB CONC 33 g/dl (31.0-36.0); MEAN CORPUSCULAR VOLUME 97 fL (80-96); MONOCYTES # (AUTO) 0.7 /CMM (0.1-1.30); MONOCYTES % (AUTO) 9.4 % (2.0-12.0); NEUTROPHILS # (AUTO) 5.5 /CMM (1.8-8.9); NEUTROPHILS % (AUTO) 68.7 % (43.0-81.0); PLATELET COUNT (AUTO) 215 /CMM (150-450); RDW COEFFICIENT OF VARIATION 15.9 (11.5-15.0); WHITE BLOOD COUNT (AUTO) 7.9 K/uL (4.3-11.0)
[2016-12-29] MEDS: CALCIUM ACETATE 667 MG TABLET PO SCH ×3 (10:28→17:42)
[2016-12-29] MEDS: AMLODIPINE BESYLATE 5 MG TABLET PO SCH ×2 (10:29→17:42)
[2016-12-29] MEDS: LEVETIRACETAM SOL (5 ML) 100 MG/ML UDC PO SCH ×2 (10:29→21:22)
[2016-12-29] MEDS: MUPIROCIN OINT 2% 22 GM TUBE SCH ×2 (10:29→21:22)
[2016-12-29] MEDS: ASPIRIN EC 325 MG TABLET.DR PO SCH (10:29)
[2016-12-29] MEDS: FOLIC ACID 1 MG TABLET PO SCH (10:29)
[2016-12-29] MEDS: AMIODARONE HCL 200 MG TABLET PO SCH (10:30)
[2016-12-29] MEDS: PANTOPRAZOLE 40 MG TABLET.DR PO SCH (10:30)
[2016-12-29] MEDS: METOPROLOL TARTRATE 25 MG TABLET PO SCH ×3 (10:30→17:43)
[2016-12-29] MEDS: LIDOCAINE 5% (PATCH) 1 EA PATCH TP SCH (10:31)
[2016-12-29 10:43] LABS: CALCIUM, SERUM 8.4 mg/dL (8.5-10.1); POTASSIUM 4.3 mmol/L (3.5-5.1)
[2016-12-29] MEDS: HYDROCODONE/APAP 5/325MG 1 EACH TABLET PO PRN ×3 (11:03→22:53)
[2016-12-29] MEDS: diphenhydrAMINE HCL 50 MG/ML VIAL IV PRN ×3 (11:15→22:53)
[2016-12-29 16:00] VITALS: BP 107/60
[2016-12-29 18:59] LABS: IRON, SERUM 78 ug/dl (50-175); TOTAL IRON BINDING CAPACITY 194 ug/dl (250-450)
--- NOTE | 2016-12-29 19:30 | NUR ---
MS RN INITIAL NOTE. RECEIVED REPORT FROM KENDELL DOMINGUEZ. PT IN BED. A/A/O X2-3. TPIECE WITH COOL AEROSOL. LUNG SOUNDS MINIMAL RHONCHI. BOWEL SOUNDS PRESENT. PREPARING PT FOR COLONOSCOPY WITH GOLYTELY. IV PATENT AND INTACT. BED IN LOW LOCKED POSITION. CALL LIGHT WITHIN REACH. WILL CONTINUE TO MONITOR.
[2016-12-29 20:00] VITALS: BP 97/57
[2016-12-29] MEDS ORDERED: PEG 3350/NA SULF,BICARB,CL/KCL 4,000 ML BOTTLE PO ONE (20:00)
[2016-12-29] MEDS: ATORVASTATIN 10 MG TABLET PO SCH (21:22)
[2016-12-29] MEDS: risperiDONE 1 MG TABLET PO SCH (21:22)
[2016-12-29] MEDS: ZOLPIDEM TARTRATE 5 MG TABLET PO SCH (21:23)
[2016-12-30] MEDS: PHENYTOIN EXTENDED RELEASE 100 MG CAPSULE PO SCH ×3 (00:48→18:19)
[2016-12-30 04:00] VITALS: BP 114/67
[2016-12-30] MEDS: IPRATROPIUM NEB FS 0.5 MG/2.5 ML AMPUL.NEB NEB SCH ×6 (04:26→23:12)
[2016-12-30] MEDS: ALBUTEROL FS 2.5 MG/3 ML VIAL.NEB NEB SCH ×7 (04:26→23:12)
[2016-12-30] MEDS: hydrALAZINE HCL 25 MG TABLET PO SCH ×3 (05:00→21:00)
[2016-12-30] MEDS: TRAMADOL HCL 50 MG TABLET PO SCH ×3 (05:12→21:20)
[2016-12-30] MEDS: diphenhydrAMINE HCL 50 MG/ML VIAL IV PRN ×2 (05:31→22:25)
[2016-12-30 08:00] VITALS: BP 142/97
[2016-12-30 08:05] LABS: BASOPHILS % (AUTO) 0.4 % (0.0-2.0); EOSINOPHILS # (AUTO) 0.7 /CMM (0.0-0.7); EOSINOPHILS % (AUTO) 7.8 % (0.0-6.0); HEMATOCRIT 24 % (39-51); LYMPHOCYTES % (AUTO) 11.8 % (20.0-44.0); MEAN CORPUSCULAR HEMOGLOBIN 32 PG (26.0-33.0); MEAN CORPUSCULAR HGB CONC 34 g/dl (31.0-36.0); MEAN CORPUSCULAR VOLUME 97 fL (80-96); MONOCYTES # (AUTO) 0.8 /CMM (0.1-1.30); MONOCYTES % (AUTO) 9.7 % (2.0-12.0); NEUTROPHILS # (AUTO) 6.1 /CMM (1.8-8.9); NEUTROPHILS % (AUTO) 70.3 % (43.0-81.0); PLATELET COUNT (AUTO) 223 /CMM (150-450); RDW COEFFICIENT OF VARIATION 16.5 (11.5-15.0); RED BLOOD CELL COUNT(AUTO) 2.46 MIL/uL (4.5-6.0); WHITE BLOOD COUNT (AUTO) 8.6 K/uL (4.3-11.0)
[2016-12-30 08:22] LABS: CALCIUM, SERUM 8.4 mg/dL (8.5-10.1); POTASSIUM 5.5 mmol/L (3.5-5.1)
[2016-12-30 08:28] LABS: CREATININE 7.5 mg/dL (0.6-1.3)
[2016-12-30] MEDS: METOPROLOL TARTRATE 25 MG TABLET PO SCH ×3 (09:00→18:20)
[2016-12-30] MEDS: FLUTICASONE/VILANTEROL 1 EACH BLST.W.DEV IH SCH (09:00)
[2016-12-30] MEDS: LIDOCAINE 5% (PATCH) 1 EA PATCH TP SCH (09:00)
[2016-12-30] MEDS: AMLODIPINE BESYLATE 5 MG TABLET PO SCH ×2 (09:00→18:21)
[2016-12-30] MEDS: PANTOPRAZOLE 40 MG TABLET.DR PO SCH (10:32)
[2016-12-30] MEDS: FOLIC ACID 1 MG TABLET PO SCH (10:33)
[2016-12-30] MEDS: LEVETIRACETAM SOL (5 ML) 100 MG/ML UDC PO SCH ×2 (10:33→21:19)
[2016-12-30] MEDS: CALCIUM ACETATE 667 MG TABLET PO SCH ×3 (10:33→18:20)
[2016-12-30] MEDS: HYDROCODONE/APAP 5/325MG 1 EACH TABLET PO PRN (10:34)
[2016-12-30] MEDS: AMIODARONE HCL 200 MG TABLET PO SCH (10:36)
[2016-12-30] MEDS: MUPIROCIN OINT 2% 22 GM TUBE SCH ×2 (10:36→21:21)
[2016-12-30 16:00] VITALS: BP 119/72
[2016-12-30] MEDS: ASPIRIN EC 325 MG TABLET.DR PO SCH (18:20)
[2016-12-30 20:00] VITALS: BP 120/77
[2016-12-30] MEDS: ATORVASTATIN 10 MG TABLET PO SCH (21:19)
[2016-12-30] MEDS: risperiDONE 1 MG TABLET PO SCH (21:20)
[2016-12-30] MEDS: ZOLPIDEM TARTRATE 5 MG TABLET PO SCH (21:20)
[2016-12-31] MEDS: PHENYTOIN EXTENDED RELEASE 100 MG CAPSULE PO SCH ×3 (01:00→18:17)
[2016-12-31] MEDS: HYDROCODONE/APAP 5/325MG 1 EACH TABLET PO PRN (03:26)
[2016-12-31] MEDS: IPRATROPIUM NEB FS 0.5 MG/2.5 ML AMPUL.NEB NEB SCH ×5 (03:57→19:51)
[2016-12-31] MEDS: ALBUTEROL FS 2.5 MG/3 ML VIAL.NEB NEB SCH ×5 (03:57→19:51)
[2016-12-31 04:00] VITALS: BP 111/68
[2016-12-31] MEDS: hydrALAZINE HCL 25 MG TABLET PO SCH ×3 (04:55→21:34)
[2016-12-31] MEDS: TRAMADOL HCL 50 MG TABLET PO SCH ×3 (05:51→21:28)
[2016-12-31 08:00] VITALS: BP 143/99
--- NOTE | 2016-12-31 08:00 | NUR ---
RN INITIAL NOTES PT IS IN BED, HOB ELEVATED, NO RESPIRATORY DISTRESS NOTED, TRACT INTACT ON COOL AEROSOL, A/O X2, CONFUSED,WITH SITTER. SKIN INTACT, TURNED AND REPOSITIONED PATIENT.. CLEAR LIQUID DIET UNTIL 12, AND WILL START BOWEL PREP - COLONOSCOPY SCHEDULED FOR TOMORROW. SIDE RAILS UP, BED LOCKED AND IN LOWEST POSITION, CALL LIGHT WITHIN REACH.
[2016-12-31 08:09] VITALS: BP 143/99
[2016-12-31] MEDS: LEVETIRACETAM SOL (5 ML) 100 MG/ML UDC PO SCH ×2 (08:25→21:27)
[2016-12-31] MEDS: CALCIUM ACETATE 667 MG TABLET PO SCH ×3 (08:25→18:16)
[2016-12-31] MEDS: MUPIROCIN OINT 2% 22 GM TUBE SCH ×2 (08:25→21:29)
[2016-12-31] MEDS: LIDOCAINE 5% (PATCH) 1 EA PATCH TP SCH (08:25)
[2016-12-31] MEDS: METOPROLOL TARTRATE 25 MG TABLET PO SCH ×3 (08:26→18:17)
[2016-12-31] MEDS: ASPIRIN EC 325 MG TABLET.DR PO SCH (08:27)
[2016-12-31] MEDS: AMLODIPINE BESYLATE 5 MG TABLET PO SCH ×2 (08:27→18:17)
[2016-12-31] MEDS: FOLIC ACID 1 MG TABLET PO SCH (08:27)
[2016-12-31] MEDS: PANTOPRAZOLE 40 MG TABLET.DR PO SCH (08:27)
[2016-12-31] MEDS: diphenhydrAMINE HCL 50 MG/ML VIAL IV PRN ×2 (08:28→18:18)
[2016-12-31] MEDS: AMIODARONE HCL 200 MG TABLET PO SCH (08:28)
[2016-12-31] MEDS: FLUTICASONE/VILANTEROL 1 EACH BLST.W.DEV IH SCH (09:00)
[2016-12-31 11:44] LABS: BASOPHILS % (AUTO) 0.4 % (0.0-2.0); EOSINOPHILS # (AUTO) 0.5 /CMM (0.0-0.7); EOSINOPHILS % (AUTO) 6.6 % (0.0-6.0); HEMATOCRIT 25 % (39-51); HEMOGLOBIN 8.1 g/dL (13.5-17.5); LYMPHOCYTES # (AUTO) 0.8 /CMM (0.8-4.8); LYMPHOCYTES % (AUTO) 11.4 % (20.0-44.0); MEAN CORPUSCULAR HEMOGLOBIN 32 PG (26.0-33.0); MEAN CORPUSCULAR HGB CONC 33 g/dl (31.0-36.0); MEAN CORPUSCULAR VOLUME 97 fL (80-96); MONOCYTES # (AUTO) 0.7 /CMM (0.1-1.30); MONOCYTES % (AUTO) 9.4 % (2.0-12.0); NEUTROPHILS # (AUTO) 5.2 /CMM (1.8-8.9); NEUTROPHILS % (AUTO) 72.2 % (43.0-81.0); PLATELET COUNT (AUTO) 206 /CMM (150-450); RDW COEFFICIENT OF VARIATION 16.8 (11.5-15.0); RED BLOOD CELL COUNT(AUTO) 2.56 MIL/uL (4.5-6.0); WHITE BLOOD COUNT (AUTO) 7.2 K/uL (4.3-11.0)
[2016-12-31 11:46] LABS: CALCIUM, SERUM 8.6 mg/dL (8.5-10.1); CREATININE 6.5 mg/dL (0.6-1.3); POTASSIUM 4.2 mmol/L (3.5-5.1)
[2016-12-31] MEDS ORDERED: PEG 3350/NA SULF,BICARB,CL/KCL 4,000 ML BOTTLE PO ONE ×2 (13:30→22:00)
[2016-12-31 16:00] VITALS: BP 129/81
--- NOTE | 2016-12-31 19:15 | NUR ---
RN INITIAL NOTES RECEIVED PATIENT IN BED, AWAKE AND ALERT WITH PERIODS OF CONFUSION, RECEIVED ENDORSEMENT REGARDING PATIENT'S BEHAVIOR, WILL MONITOR CLOSELY. 1:1 SITTER AT BEDSIDE, UPDATED AND ORIENTED WITH PATIENT'S CONDITION AND MONITORING. PATIENT WITH TRACH, IN MIDLINE, C/D/I, ON COOL AEROSOL AT 40% FIO2, 10LPM OF O2 DELIVERY. L AV SHUNT INTACT, NO BLEEDING, NO DISCHARGE NOTED. RECEIVED ENDORSEMENT FOR ANOTHER ADMINISTRATION OF GOLYTELY FOR BOWEL PREP FOR COLONOSCOPY IN AM ORDERED BY DR. PRITCHETT. WILL MONITOR PATIENT'S BOWEL CONSISTENCY AND CHARACTERISTICS CLOSELY. PATIENT'S NEEDS ANTICIPATED AND MET. SAFETY AND COMFORT ENSURED. BED IN LOW AND LOCKED POSITION. CALL LIGHT IN REACH. WILL MONITOR.
--- NOTE | 2016-12-31 19:56 | NUR ---
RN CLOSING NOTES PT IS A/O x2, PERIODS OF CONFUSION, REORIENTED PT FREQUENTLY, WITH EPISODES OF PULLING TUBES, TRACH MASK AND IVS. WITH SITTER. COMPLETED BOWEL PREP, HAD 6 BOWEL MOVEMENT, WITH CLEAR, AND MINIMAL RESIDUAL. DR KING AWARE. NPO POST MIDNIGHT EXCEPT. CLEAN THE PT FREQUENTLY, KEPT CLEAN AND DRY, NO NEW SKIN BREAKDOWN. IV SITES IN THE RIGHT CHEST WALL WAS INSERTED FLUSHED AND PATENT. SIDE RAILS UP, BED LOCKED IN LOWEST POSITION. ENDORSED TO NIGHT NURSE FOR CONTINUATION OF CARE.
[2016-12-31 20:00] VITALS: BP 136/91
[2016-12-31] MEDS: ZOLPIDEM TARTRATE 5 MG TABLET PO SCH (21:27)
[2016-12-31] MEDS: ATORVASTATIN 10 MG TABLET PO SCH (21:27)
[2016-12-31] MEDS: risperiDONE 1 MG TABLET PO SCH (21:28)
--- NOTE | 2016-12-31 23:00 | NUR ---
RN NOTES PATIENT PROVIDED WITH GOOD PERICARE AND DIAPER CHANGE FOR AT LEAST X6 D/T BM SECONDARY TO ADMINISTRATION OF GOLYTELY FOR BOWEL PREP. PATIENT'S STOOL IS LIQUID CONSISTENCY, YELLOW COLORED WITH MINIMAL TO NO SEDIMENTS NOTED. CALLED AND LEFT A VOICE MESSAGE TO VIOLETA OKEEFE MADE AWARE.
[2017-01-01] MEDS: IPRATROPIUM NEB FS 0.5 MG/2.5 ML AMPUL.NEB NEB SCH ×7 (00:09→23:22)
[2017-01-01] MEDS: ALBUTEROL FS 2.5 MG/3 ML VIAL.NEB NEB SCH ×7 (00:09→23:22)
[2017-01-01] MEDS: PHENYTOIN EXTENDED RELEASE 100 MG CAPSULE PO SCH ×3 (00:11→17:21)
--- NOTE | 2017-01-01 00:30 | NUR ---
RN NOTES 1:1 SITTER AT BEDSIDE, PATIENT REFUSING HIS B SOFT WRIST RESTRAINTS, PATIENT STATING HE WILL COOPERATE AND BEHAVE. HOWEVER, DESPITE CONSTANT REORIENTATION AND REDIRECTION PROVIDED, PATIENT HAD PULLED OUT HIS IV ACCESS PLACED ON HIS R CHEST BY AM NURSES, PATIENT STATES IT WAS "BOTHERING" HIM, PRESSURE DRESSING WAS APPLIED. PATIENT ALSO NOTED TO BE RESTLESS, AGITATED AND NONCOMPLIANT WITH STAFF INSTRUCTIONS, PATIENT ALSO PULLING OUT HIS INNER CANNULA THROUGH THE NIGHT. ON CLOSE MONITORING. PATIENT APPROACHED FIRMLY AND REDIRECTED PATIENT'S ATTENTION. PATIENT MANAGED TO CALM DOWN, ABLE TO SLEEP.
[2017-01-01] MEDS ORDERED: diphenhydrAMINE HCL 50 MG/ML VIAL IM ONE (03:30)
--- NOTE | 2017-01-01 03:37 | NUR ---
RN NOTES PATIENT WOKE UP, INSISTING FOR HIS BENADRYL IVP. PATIENT APOLOGIZED FOR PULLING OUT HIS IV ACCESS, BEGGED FOR A NEW LINE TO BE INSERTED. RN AND CN ATTEMPTED PIV INSERTION, UNABLE TO INSERT NEW IV ACCESS, PATIENT IS A HARDSTICK, THERE IS A PENDING MIDLINE INSERTION FOR THE PATIENT IN AM. PATIENT AGITATED AND INSISTING FOR HIS BENADRYL IVP, OFFERED ALTERNATIVE OF BENADRYL IM, GIVEN HIS POOR VENOUS ACCESS, PATIENT COMPLIED. SPOKE AND OBTAINED ORDER FOR X1 BENADRYL 25MG IM FROM ALISSA LIU, WILL MONITOR FOR EFFECTIVENESS.
[2017-01-01 04:00] VITALS: BP 164/81
--- NOTE | 2017-01-01 04:00 | NUR ---
RN NOTES PATIENT COMPLAINING OF DIFFICULTY BREATHING, BREATHING GIVEN ORDERED, PATIENT'S AIRWAY SUCTIONED WITH MINIMAL TO NO SECRETION OBTAINED. INNER CANNULA CHANGED NEEDED AND PATIENT ALWAYS REMOVING INNER CANNULA. PATIENT IS SATURATING AT 97%, STILL COMPLAINING OF SOB, ENCOURAGED PATIENT TO CALM DOWN, PATIENT OBSERVED TO ANXIOUS, REASSURANCE AND REORIENTATION PROVIDED NEEDED. PATIENT MANAGED TO CALM DOWN, PATIENT ABLE TO SLEEP. 1:1 SITTER, ON CLOSE MONITORING.
[2017-01-01] MEDS: hydrALAZINE HCL 25 MG TABLET PO SCH ×3 (05:15→19:51)
[2017-01-01] MEDS: TRAMADOL HCL 50 MG TABLET PO SCH ×3 (05:15→21:18)
--- NOTE | 2017-01-01 07:10 | NUR ---
RN INITIAL NOTES: REC'D PT AWAKE ON BED W/ HOB ELEVATED, NOT IN ANY DISTRESS, DENIES ANY PAIN/ DISCOMFORT, A/OX3. PT ON COOL AEROSOL VIA TRACH (SHILEY 6), FIO2 40%, SATURATING AT 97%. NO IV LINE ACCESS NOTED, FOR MIDLINE INSERTION. HAS 1:1 SITTER AT BEDSIDE. PT SCHEDULED FOR EGD / COLONOSCOPY. PROVIDED COMFORT & SAFETY MEASURES. CALL LIGHT PLACED W/IN REACH. BED KEPT LOW & IN LOCKED POS. WILL CONTINUE TO MONITOR.
--- NOTE | 2017-01-01 07:14 | NUR ---
RN NOTES PATIENT'S CARE ENDORSED ACCORDINGLY TO NEXT SHIFT. PATIENT ABLE TO CALM DOWN, CONSTANT REORIENTATION, REASSURANCE PROVIDED AT ALL TIMES. KEPT CLEAN AND DRY. NO DISTRESS. NEEDS ANTICIPATED AND MET. 1:1 SITTER AT BEDSIDE. UPDATED WITH PATIENT'S CONDITION OVERNIGHT, AWARE OF PATIENT'S ANXIETY, NONCOMPLIANCE AND AGITATION. SAFETY AND COMFORT ENSURED. PATIENT'S STOOL IS LIQUID, YELLOW STOOL, NO SEDIMENTS. ENDORSED ACCORDINGLY.
[2017-01-01] MEDS: PANTOPRAZOLE 40 MG TABLET.DR PO SCH (07:30)
[2017-01-01 08:00] VITALS: BP 141/84
[2017-01-01] MEDS: CALCIUM ACETATE 667 MG TABLET PO SCH ×3 (08:00→17:21)
[2017-01-01] MEDS: FLUTICASONE/VILANTEROL 1 EACH BLST.W.DEV IH SCH (08:09)
[2017-01-01] MEDS: LIDOCAINE 5% (PATCH) 1 EA PATCH TP SCH (08:09)
[2017-01-01] MEDS: MUPIROCIN OINT 2% 22 GM TUBE SCH ×2 (08:11→22:26)
[2017-01-01] MEDS: LEVETIRACETAM SOL (5 ML) 100 MG/ML UDC PO SCH ×2 (09:00→21:16)
[2017-01-01] MEDS: AMLODIPINE BESYLATE 5 MG TABLET PO SCH ×2 (09:00→17:21)
[2017-01-01] MEDS: AMIODARONE HCL 200 MG TABLET PO SCH (09:00)
[2017-01-01] MEDS: FOLIC ACID 1 MG TABLET PO SCH (09:00)
[2017-01-01] MEDS: METOPROLOL TARTRATE 25 MG TABLET PO SCH ×3 (09:00→17:21)
[2017-01-01] MEDS: ASPIRIN EC 325 MG TABLET.DR PO SCH (09:00)
--- NOTE | 2017-01-01 09:00 | NUR ---
RN NOTES: HD STARTED C/O BILL.
[2017-01-01] MEDS: diphenhydrAMINE HCL 50 MG/ML VIAL IV PRN ×2 (09:59→18:11)
--- NOTE | 2017-01-01 11:30 | NUR ---
RN NOTES: HD ENDED, 2.5 L OUTPUT, PT TOLERATED WELL THE PROCEDURE.
--- NOTE | 2017-01-01 12:00 | NUR ---
RN NOTES: PT PICKED UP BY [facility] NURS[facility] FOR COLONOSCOPY/ EGD PROCEDURE C/O DR. CHOI.
--- NOTE | 2017-01-01 14:00 | NUR ---
RN NOTES: S/P COLONOSCOPY/EGD, PER DR. CHOI WRITTEN ORDER RESUME PRE-OP DIET.
[2017-01-01] MEDS: LORAZEPAM 1 MG TABLET PO PRN ×2 (14:48→22:28)
[2017-01-01 16:00] VITALS: BP 138/79
--- NOTE | 2017-01-01 18:59 | NUR ---
RN CLOSING NOTES: NO ACUTE CHANGES NOTED W/IN SHIFT. PT TOLERATED COOL AEROSOL SETTING VIA TRACH (SHILEY 6), FIO2 40%. FERNANDO MIDLINE KEPT PATENT & INTACT. HAS 1:1 SITTER AT BEDSIDE. S/P EGD / COLONOSCOPY. KEPT WELL RESTED. NEEDS ATTENDED. CALL LIGHT PLACED W/IN REACH. BED KEPT LOW & IN LOCKED POS. WILL ENDORSE TO PM RN FOR AGATHA AND DC BACK TO SNF (REPORT GIVEN TO LINDA, . AWAITING FOR AMBULANCE. PER YONI HAWTHORNE, NOTIFY AFTER DC PT HAS HX OF REFUSING TRANSFER.
--- NOTE | 2017-01-01 19:30 | NUR ---
RN INITIAL NOTE; PT ON THE BED AGITATED , WITH 1;1 SITTER . AWAKE/ORIENTED BUT AGITATED AND SOB . 02 SAT 86% TRACH WITH TRACH COLLAR 10 LPM FIO2 40% . ALBINO AV SHUNT , BRUIT AND THRILL PRESENT . FERNANDO MIDLINE INTACT . BED IN THE LOWEST/LOCKED POSITION . SAFETY MEASURES APPLIED . WILL CONTINUE TO MONITOR .
--- NOTE | 2017-01-01 19:39 | NUR ---
ADDENDUM: PT REFUSED TAKING PICTURES OF HIS WOUNDS.
--- NOTE | 2017-01-01 19:52 | NUR ---
RN NOTES: IN BED AWAKE, FOR TRANSFER TO [facility]. BLOOD PRESSURE 180/109. HR 82 BPM. FUNDER DOCTOR ORDERED TO GIVE HYDRALAZINE 25MG PO EARLIER THAN SCHEDULED TIME. 02 SAT 92% AT THIS TIME. BREATHING TX ADMINISTERED.
[2017-01-01 20:00] VITALS: BP 180/108
[2017-01-01 20:30] VITALS: BP 163/87
[2017-01-01] MEDS: risperiDONE 1 MG TABLET PO SCH (21:16)
[2017-01-01] MEDS: ATORVASTATIN 10 MG TABLET PO SCH (21:16)
[2017-01-01] MEDS: ZOLPIDEM TARTRATE 5 MG TABLET PO SCH (21:17)
[2017-01-01 22:30] VITALS: BP 158/89
--- NOTE | 2017-01-01 22:30 | NUR ---
RECHECKED BP 158/89 MM OF HG , INFORMED TO HEART TO [facility] TALKED TO YOAV , CALLED [facility] ,INFORMED ABOUT BP , VERBALIZED WILL PICK HIM UP IN 30 MINS.
--- NOTE | 2017-01-01 22:30 | NUR ---
RN NOTE; PRN ATIVAN 1 MG PO GIVEN FOR AGITATION /SOB , TOLERATED AT THIS TIME . WILL REASSESS.
[2017-01-02] VITALS: BP 159/76
--- NOTE | 2017-01-02 00:40 | NUR ---
DISCHARGE NOTE; [facility] , CALLED AND INFORMED TO NURSE CASON . PT IS ASLEEP AND AROUSABLE TO VERBAL RESPONSE . V/S BP- 155/84 , HR-80, RR-22, TEMP-98.4 , O2 SAT- 96% ON COOL AEROSOL 10 LPM FIO2 40% . NO DISTRESS NOTED WHILE DISCHARGE , PT REFUSED FOR SKIN ASSESSMENT . PT PICKED UP BY [facility]. REPORT GIVEN AND ALL PAPER WORK SENT WITH AMBULANCE.
== END 2017-01-02 00:37 | DRG 393 ==
LOC: ER 17:22 → TELE-TD 20:25 → TELE1 21:25 → MEDSG1 12-28 11:36
PROVIDERS: ADMIT Nurse Practitioner Acute Care; ATTEND Nurse Practitioner Acute Care
PROC: 30233N1 Transfusion of Nonautologous Red Blood Cells into Peripheral Vein, Percutaneous Approach (ICD-10-PCS; principal; 2016-12-25)
PROC: 5A1D60Z (ICD-10-PCS; 2016-12-26)
PROC: 0DJ08ZZ Inspection of Upper Intestinal Tract, Via Natural or Artificial Opening Endoscopic (ICD-10-PCS; 2017-01-01)
PROC: 0DBM8ZZ Excision of Descending Colon, Via Natural or Artificial Opening Endoscopic (ICD-10-PCS; 2017-01-01)
DX: K63.5 Polyp of colon (principal); N18.6 End stage renal disease; G93.41 Metabolic encephalopathy; I12.0 Hypertensive chronic kidney disease with stage 5 chronic kidney disease or end stage renal disease; E44.0 Moderate protein-calorie malnutrition; E87.1 Hypo-osmolality and hyponatremia; J96.10 Chronic respiratory failure, unspecified whether with hypoxia or hypercapnia; Z99.11 Dependence on respirator [ventilator] status; Z68.41 Body mass index [BMI] 40.0-44.9, adult; D64.9 Anemia, unspecified; Z93.1 Gastrostomy status; Z99.2 Dependence on renal dialysis; D63.1 Anemia in chronic kidney disease; E66.9 Obesity, unspecified; F17.210 Nicotine dependence, cigarettes, uncomplicated; G89.4 Chronic pain syndrome; I48.91 Unspecified atrial fibrillation; K21.9 Gastro-esophageal reflux disease without esophagitis; R13.10 Dysphagia, unspecified; Z86.73 Personal history of transient ischemic attack (TIA), and cerebral infarction without residual deficits; Z93.0 Tracheostomy status; E87.5 Hyperkalemia; E88.09 Other disorders of plasma-protein metabolism, not elsewhere classified; Y09 Assault by unspecified means; K64.9 Unspecified hemorrhoids; S30.1XXA Contusion of abdominal wall, initial encounter; S70.12XA Contusion of left thigh, initial encounter; Y93.9 Activity, unspecified; Y92.89 Other specified places as the place of occurrence of the external cause; Y99.9 Unspecified external cause status
CPT/HCPCS: 31720; 36415; 36600; 70450-TC; 71010-TC; 74000-TC; 80048-TC; 80053-TC; 80061-TC; 80076-TC; 81000-TC; 82272-TC; 83540-TC; 83605-TC; 83735-TC; 84100-TC; 84443-TC; 84484-TC; 85025-TC; 85730-TC; 86850-TC; 86921-TC; 87040-TC; 87081-TC; 87086-TC; 88305-TC; 90935-TC; 93971-TC; 94640-TC; 94664-TC; 94762-TC; 94799-TC; 97001-TC; 97110-TC; 97530-TC; A4606; A4623; A6402; A7526; J0885; J1200; J1953; J2704; J3490; J7030; J7050; P9016-BL; Z7610

== ENCOUNTER 2017-01-02 12:40 | Inpatient (IN) | payer BC, MEDICAID ==
[2017-01-02] VITALS (17 sets, daily range): BP systolic 94–217; BP diastolic 55–117
[~2017-01-02] VITALS: Ht 170.2 cm; Wt 95.7 kg
[~2017-01-02 12:40] MED LIST changes: -LEVE100S PO
--- NOTE | 2017-01-02 12:56 | NUR ---
bib ra from heart to heart boarding care for shortness of breath, patient does not complain of chest pain, is verbally responsive with single word responses, patient is able to ambulate with assistance, placed on monitor, md at bedside upon arrival, rt at bedside upon arrival, will continue to monitor closely.
[2017-01-02 13:05] LABS: BASOPHILS # (AUTO) 0.1 /CMM (0.0-0.2); BASOPHILS % (AUTO) 0.6 % (0.0-2.0); EOSINOPHILS # (AUTO) 0.1 /CMM (0.0-0.7); EOSINOPHILS % (AUTO) 0.8 % (0.0-6.0); HEMATOCRIT 27 % (39-51); HEMOGLOBIN 8.9 g/dL (13.5-17.5); LYMPHOCYTES # (AUTO) 0.6 /CMM (0.8-4.8); LYMPHOCYTES % (AUTO) 5.7 % (20.0-44.0); MEAN CORPUSCULAR HEMOGLOBIN 32 PG (26.0-33.0); MEAN CORPUSCULAR HGB CONC 33 g/dl (31.0-36.0); MEAN CORPUSCULAR VOLUME 96 fL (80-96); MONOCYTES # (AUTO) 0.7 /CMM (0.1-1.30); MONOCYTES % (AUTO) 5.9 % (2.0-12.0); NEUTROPHILS # (AUTO) 9.6 /CMM (1.8-8.9); PLATELET COUNT (AUTO) 238 /CMM (150-450); RDW COEFFICIENT OF VARIATION 16.3 (11.5-15.0); RED BLOOD CELL COUNT(AUTO) 2.81 MIL/uL (4.5-6.0); WHITE BLOOD COUNT (AUTO) 11.1 K/uL (4.3-11.0)
[2017-01-02 13:18] LABS: INR 1.38 (0.87-1.13); PROTHROMBIN TIME 14.6 SECS (9.5-12.7)
[2017-01-02 13:20] LABS: ALBUMIN 3.4 g/dL (3.4-5.0); BILIRUBIN,DIRECT 0.8 mg/dL (0.0-0.2); BILIRUBIN,TOTAL 1.4 mg/dL (0.2-1.0); CALCIUM, SERUM 8.9 mg/dL (8.5-10.1); POTASSIUM 4.5 mmol/L (3.5-5.1); TOTAL PROTEIN, SERUM 7.6 g/dL (6.4-8.2)
[2017-01-02 13:22] LABS: TROPONIN I 0.055 ng/mL (0.00-0.056)
[2017-01-02] MEDS ORDERED: hydrALAZINE HCL IV 20 MG VIAL IV ONE (13:30)
--- NOTE | 2017-01-02 13:36 | NUR ---
CALLED NURSING SUP. FOR ICU BED
--- NOTE | 2017-01-02 13:39 | NUR ---
EPIC PAGED, DR.SIMONA Soto PSYCHOPAEDIC NURSE
[2017-01-02 13:54] LABS: ABG BASE EXCESS -0.9 mmol/L; ABG OXYGEN SATURATION 89.5 % (92.0-98.5); ABG PCO2 57.9 mmHg (35.0-45.0); ABG PH 7.277 (7.350-7.450); ABG PO2 70.2 mmHg (75.0-100.0); AaDO2 366.7 mmHg; COHb 1.2 % (0.5-1.5); MetHb 0.4 % (0.0-1.5); O2Hb 88.1 % (94.0-97.0); SITE, ABG Right Radial; VENT MODE, BG TRACH MASK
--- NOTE | 2017-01-02 15:35 | NUR ---
LEATHER PIECE INSPECTOR NOTES RECEIVED PATIENT FROM ER WITH DIAGNOSIS OF RESPIRATORY FAILURE AND SEPSIS , NOT IN ACUTE DISTRESS , RESPIRATIONS EVEN AND UNLABORED WITH SPO2 OF 100% VIA MECHANICAL VENT SETTINGS ORDERED . TRACH OF PA # [address] , RESPONSIVE TO PAIN STIMULI , SR 75 ON BEDSIDE MONITOR . AFEBRILE , V/S STABLE , SKIN ASSESSMENT DONE NOTED WITH LEFT UPPER ARM AND ARM SCAB AND LEFT LEG HIP BRUISES TOOK PICTURES AND PLACED IN THE CHART , KCI MATTRESS APPLIED , WOUND CONSULT ORDERED , ALBINO AV SHUN WITH BRUIT AND THRILL , FERNANDO MIDLINE PATENT AND INTACT DRESSING CHANGED , ALL NEEDS ATTENDED , BED ON LOW AND LOCKED POSITION , SIDE RAILS X2 ,HOB # 35 WILL CONTINUE TO MONITOR , PAGED DR GONCALVES FOR ADMISSION ORDERS
[2017-01-02 16:35] LABS: ABG BASE EXCESS -2.7 mmol/L; ABG OXYGEN SATURATION 98.9 % (92.0-98.5); ABG PCO2 42.7 mmHg (35.0-45.0); ABG PH 7.345 (7.350-7.450); ABG PO2 251.3 mmHg (75.0-100.0); AaDO2 274.3 mmHg; COHb 1.7 % (0.5-1.5); MetHb 1.3 % (0.0-1.5); O2Hb 95.9 % (94.0-97.0); PEEP,BG 5 cm H2O; SITE, ABG Right Radial; VT, ABG 500 mL
[2017-01-02] MEDS ORDERED: ONDANSETRON HCL/PF 4 MG/2 ML VIAL IVP PRN (17:00)
[2017-01-02] MEDS ORDERED: ACETAMINOPHEN 325 MG TABLET PO PRN (17:00)
[2017-01-02] MEDS ORDERED: MORPHINE SULFATE INJ 2 MG/ML DISP.SYRIN IV PRN (17:00)
[2017-01-02 17:16] LABS: IRON, SERUM 82 ug/dl (50-175); TOTAL IRON BINDING CAPACITY 203 ug/dl (250-450)
[2017-01-02] MEDS ORDERED: FEE PK DOSING 1 MIN EA MC ONE (17:23)
[2017-01-02] MEDS ORDERED: VANCOMYCIN 1 GM in IV D5W 250 ML IV ONE ×2 (17:30→21:00)
[2017-01-02] MEDS ORDERED: SECONDARY IV SET 1 EA INFUS.SET MC ONE (17:43)
[2017-01-02] MEDS ORDERED: IV NS 0.9% 250 ML IV ONE (17:43)
[2017-01-02] MEDS ORDERED: IV SET PRIMARY PUMP SET 1 EA INFUS.SET MC ONE (17:43)
--- NOTE | 2017-01-02 17:45 | NUR ---
STRATEGY INTERN NOTES DR GONCALVES AT BEDSIDE , SEEN AND EVALUATED THE PT , DISCUSSED LABS , PENDING HEMODIALYSIS , PT IS RESPONSIVE TO PAIN STIMULI NOTED WITH TWITCHING / SEIZURE LIKE , LEFT HIP , LEFT LEG NOTED WITH BRUISES , VERIFIED WITH MD IF SHE WANTS TO ORDER XRAY TO R/O FRACTURE , MD AWARE . GITA FOR ORDERS
[2017-01-02] MEDS ORDERED: PIPERACILLIN /TAZOBACTAM 3.375 G in IV D5W 50 ML IV SCH (18:00)
[2017-01-02] MEDS ORDERED: LIDOCAINE 5% (PATCH) 1 EA PATCH TP SCH (18:00)
[2017-01-02 18:23] LABS: ALBUMIN 2.9 g/dL (3.4-5.0); BILIRUBIN,DIRECT 0.4 mg/dL (0.0-0.2); BILIRUBIN,TOTAL 1.2 mg/dL (0.2-1.0)
[2017-01-02] MEDS: AMIODARONE HCL 200 MG TABLET PO SCH (18:30)
[2017-01-02] MEDS ORDERED: risperiDONE 1 MG TABLET PO SCH (18:30)
[2017-01-02] MEDS ORDERED: PHENYTOIN EXTENDED RELEASE 100 MG CAPSULE PO SCH (18:30)
[2017-01-02] MEDS: LEVETIRACETAM (250 MG) 250 MG TABLET PO SCH ×2 (18:30→19:10)
[2017-01-02] MEDS: PIPERACILLIN /TAZOBACTAM 2.25 G in IV D5W 50 ML IV SCH (18:42)
--- NOTE | 2017-01-02 18:45 | NUR ---
ANIMAL ANATOMY TEACHER NOTES PT STABLE PRIOR TO DIALYSIS , AFEBRILE , V/S STABLE , WILL CONTINUE TO MONITOR CALLED PHARMACY SPOKE WITH MARILOU , NOTIFIED TO CHANGE VANCOMYCIN SCHEDULE PT IS HAVING HEMODIALYSIS AT THIS TIME NGT INSERTED VERIFIED PLACEMENT WITH ANOTHER NURSE NOTED WITH GURGLING SOUND AROUND STOMACH AREA .
--- NOTE | 2017-01-02 19:00 | NUR ---
DIGITAL MARKETING ANALYST NOTES [address] GONCALVES NOTIFIED THAT PT IS NOT NEUROLOGICALLY INTACT , RESPONSIVE TO PAIN STIMULI , UNABLE TO ADMINISTER PO MEDS OF DILANTIN 300MG , KEPPRA 500MG , PER MD INSERT NGT , NOTIFIED THAT DILANTIN IS ON EXTENDED RELEASE UNABLE TO CRUSH , NOTIFIED REGARDING DILANTIN LEVEL , PER MD SHE WILL CHANGE IT TO IV , [address] RECEIVED A CALL FROM DR GONCALVES , DISCUSSED PLAN OF CARE , VERIFIED SEPSIS DIAGNOSIS PT DIDN'T RECEIVED IVF , PER MD CONTINUE WITH SEPSIS DIAGNOSIS IVF IS CONTRAINDICATED , MD OK WITH BILATERAL SOFT WRIST RESTRAINS , ORDERS CARRIED OUT .
--- NOTE | 2017-01-02 19:32 | NUR ---
FELT CHECKER. INITIAL ASSESSMENT. RECEIVED THE PT REST ON THE BED. TRACH TO VENT CONNECTED. RESPONDING PAIN. NONVERBAL. SHILEY #6,AC 14,TV 500, FIO2 40%, PEEP 5. SAT 98%. NO ACUTE DISTRESS NOTED. COMPARATOR OPERATOR SHOWING NSR. IV RT UPPER ARM MID LINE, LT UPPER ARM AV FISTULA, RT NARE NGT, .PT IS NPO. UMM SOFT WRIST RESTRAINT CHECKED AND RELEASED, NO INJURY OR REDNESS NOTED, HD RUNNING. HOB ELEVATED, AFEBRILE. WILL CONTINUE TO MONITOR VITALS.
[2017-01-02] MEDS: IPRATROPIUM NEB FS 0.5 MG/2.5 ML AMPUL.NEB NEB SCH ×2 (19:46→23:45)
[2017-01-02] MEDS: ALBUTEROL FS 2.5 MG/3 ML VIAL.NEB NEB SCH ×2 (19:46→23:45)
[2017-01-02] MEDS ORDERED: PHENYTOIN SODIUM IV 50 MG/ML VIAL ONE (20:48)
[2017-01-02] MEDS ORDERED: FAMOTIDINE/PF INJ 20 MG/2 ML VIAL IV SCH (21:00)
[2017-01-02] MEDS ORDERED: FLUTICASONE/SALMETEROL DISKUS IH SCH (21:00)
[2017-01-02] MEDS ORDERED: PHENYTOIN SODIUM IV 50 MG/ML VIAL IV SCH (21:00)
[2017-01-02] MEDS: ATORVASTATIN 10 MG TABLET PO SCH (21:08)
[2017-01-02] MEDS: ZOLPIDEM TARTRATE 5 MG TABLET PO SCH (22:00)
--- NOTE | 2017-01-02 22:56 | NUR ---
ICURN..AMBIEN NOT GIVEN.PT NOT RESPONDING
[2017-01-03] VITALS (37 sets, daily range): BP systolic 95–209; BP diastolic 49–106
[2017-01-03] MEDS ORDERED: diphenhydrAMINE HCL 50 MG/ML VIAL ONE (02:15)
[2017-01-03] MEDS ORDERED: HYDROMORPHONE 1 MG/1 ML DISP.SYRIN ONE (02:16)
[2017-01-03] MEDS: diphenhydrAMINE HCL 50 MG/ML VIAL IV PRN ×4 (02:24→20:01)
[2017-01-03] MEDS: HYDROMORPHONE 1 MG/1 ML DISP.SYRIN IV PRN ×4 (02:25→20:01)
[2017-01-03] MEDS: IPRATROPIUM NEB FS 0.5 MG/2.5 ML AMPUL.NEB NEB SCH ×6 (03:27→22:40)
[2017-01-03] MEDS: ALBUTEROL FS 2.5 MG/3 ML VIAL.NEB NEB SCH ×6 (03:27→22:40)
--- NOTE | 2017-01-03 03:39 | NUR ---
FINISHER FINE DIAMOND DIES.AM CARE.ORAL CARE, BED BATH GIVEN.LINEN CHANGED. PT AWAKE, ALERT, FOLLOW COMMANDS.BID WRITER SHOWING NSR.IV RT UPPER ARM MIDLINE.TKO RUNNING. HOB ELEVATED.REMAINING SAME VENT SETTING TOLERATED WELL. SAT 98%.TURN AND REPOSITION Q2H. WILL CONTINUE TO MONITOR VITALS.
[2017-01-03 04:54] LABS: BASOPHILS % (AUTO) 0.3 % (0.0-2.0); EOSINOPHILS # (AUTO) 0.3 /CMM (0.0-0.7); EOSINOPHILS % (AUTO) 4.5 % (0.0-6.0); HEMATOCRIT 23 % (39-51); HEMOGLOBIN 7.3 g/dL (13.5-17.5); LYMPHOCYTES # (AUTO) 0.6 /CMM (0.8-4.8); LYMPHOCYTES % (AUTO) 9.8 % (20.0-44.0); MEAN CORPUSCULAR HEMOGLOBIN 31 PG (26.0-33.0); MEAN CORPUSCULAR HGB CONC 32 g/dl (31.0-36.0); MEAN CORPUSCULAR VOLUME 96 fL (80-96); MONOCYTES # (AUTO) 0.5 /CMM (0.1-1.30); MONOCYTES % (AUTO) 8.4 % (2.0-12.0); PLATELET COUNT (AUTO) 163 /CMM (150-450); RDW COEFFICIENT OF VARIATION 17.4 (11.5-15.0); RED BLOOD CELL COUNT(AUTO) 2.36 MIL/uL (4.5-6.0); WHITE BLOOD COUNT (AUTO) 6.5 K/uL (4.3-11.0)
[2017-01-03] MEDS: PIPERACILLIN /TAZOBACTAM 2.25 G in IV D5W 50 ML IV SCH ×3 (04:55→20:00)
[2017-01-03 04:58] LABS: TROPONIN I 0.053 ng/mL (0.00-0.056)
[2017-01-03 05:09] LABS: INR 1.35 (0.87-1.13); PROTHROMBIN TIME 14.7 SECS (9.5-12.7)
[2017-01-03 05:11] LABS: CREATINE KINASE MB 1.7 ng/mL (0-3.6)
[2017-01-03 05:12] LABS: ALBUMIN 2.6 g/dL (3.4-5.0); BILIRUBIN,TOTAL 1.2 mg/dL (0.2-1.0); CALCIUM, SERUM 8.2 mg/dL (8.5-10.1); CREATININE 5.9 mg/dL (0.6-1.3); POTASSIUM 3.7 mmol/L (3.5-5.1); TOTAL PROTEIN, SERUM 6.1 g/dL (6.4-8.2)
--- NOTE | 2017-01-03 05:57 | NUR ---
ICURN. LT FEMORAL X RAY PT REFUSED.I EXPLAIN PURPOSE OF THE XRAY. STILL PT REFUSED.
--- NOTE | 2017-01-03 06:55 | NUR ---
MANAGER VIDEO.PT REMOVED NGT.
--- NOTE | 2017-01-03 08:00 | NUR ---
FERMENTING CELLARS RECEIVER NOTES: RECEIVED THE PT RESTING IN BED C/O PAIN REQUESTING DILAUDID AND BENADRYL. PATIENT NOTED TO BE ALERT AND ORIENTED X3. ABLE TO WRITE AND MAKE NEEDS KNOWN. PATIENT NOTED WITH TRACH SHILEY #6,AC 14,TV 500, FIO2 40%, PEEP 5. SAT 100%. NO ACUTE DISTRESS NOTED. ENVIRONMENTAL PROTECTION FORESTER SHOWING NSR HR76. IV RT UPPER ARM MIDLINE PATENT INTACT, LT UPPER ARM AV FISTULA BRUIT AND THRILL PRESENT, HD STARTED, PT IS NPO C/O HUNGER. PAIN MANAGEMENT PROVIDED. HOB ELEVATED, SAFETY MEASURES OBSERVED. CALL LIGHT PLACED WITHIN REACH. WILL CONTINUE TO MONITOR
[2017-01-03] MEDS ORDERED: CELLULOSE,OXIDIZED 1 EACH EACH MC ONE (08:30)
[2017-01-03] MEDS ORDERED: PANTOPRAZOLE 40 MG VIAL IV SCH (09:00)
[2017-01-03] MEDS: FLUTICASONE/VILANTEROL 1 EACH BLST.W.DEV IH SCH (09:00)
[2017-01-03] MEDS: CALCIUM ACETATE 667 MG TABLET PO SCH ×3 (09:55→16:28)
[2017-01-03] MEDS: ASPIRIN 325 MG TABLET PO SCH (09:56)
[2017-01-03] MEDS: LEVETIRACETAM (250 MG) 250 MG TABLET PO SCH ×3 (09:56→16:28)
[2017-01-03] MEDS: PHENYTOIN EXTENDED RELEASE 100 MG CAPSULE PO SCH ×2 (09:56→16:28)
[2017-01-03] MEDS: AMIODARONE HCL 200 MG TABLET PO SCH (09:56)
[2017-01-03] MEDS: FOLIC ACID 1 MG TABLET PO SCH (09:57)
[2017-01-03] MEDS: PANTOPRAZOLE 40 MG TABLET.DR PO SCH (09:57)
--- NOTE | 2017-01-03 10:15 | NUR ---
COMMERCIAL CREDIT HEAD NOTE: HD COMPLETE 3L OUT, VS STABLE. ONGOING MONITORING.
--- NOTE | 2017-01-03 11:00 | NUR ---
LEARNING AND DEVELOPMENT ANALYST NOTE: PER DR. STANLEY, PATIENT PLACED OFF VENT AND ON COOL AEROSOL 10L 40%. ABG IN 2 HOURS. NO DISTRESS NOTED. ONGOING MONITORING.
[2017-01-03] MEDS: HYDROCODONE/APAP 5/325MG 1 EACH TABLET PO PRN ×3 (11:43→23:48)
[2017-01-03 13:37] LABS: ABG BASE EXCESS 0.2 mmol/L; ABG OXYGEN SATURATION 96.7 % (92.0-98.5); ABG PH 7.411 (7.350-7.450); ABG PO2 100.4 mmHg (75.0-100.0); AaDO2 138.8 mmHg; O2Hb 93.8 % (94.0-97.0); SITE, ABG Right Radial; VENT MODE, BG COOL AEROSOL
[2017-01-03] MEDS: VANCOMYCIN 500 MG in IV D5W 100 ML IV PRN (14:23)
--- NOTE | 2017-01-03 15:00 | NUR ---
COMMUNITY DEVELOPMENT AIDE NOTE: RECEIVED CALL FROM LAB WITH LAB RESULTS CRITICAL OF BLOOD CULTURE GRAM +COCCI AND MRSA NARES. INFORMED. PATIENT ON ISOLATION. ORDERS RECEIVED. WILL CARRY OUT.
[2017-01-03] MEDS ORDERED: IV NS 0.9% 250 ML IV ONE (16:25)
[2017-01-03] MEDS: LACTOBACILLUS RHAMNOSUS GG 1 EACH CAP.SPRINK PO SCH (16:28)
--- NOTE | 2017-01-03 17:00 | NUR ---
DRUG SAFETY SCIENTIST NOTE: BED BATH PROVIDED. PATIENT KEPT CLEAN AND DRY, SKIN NOTED TO BE INTACT WITH MULTIPLE BRUISES. AT THIS TIME PATIENT REFUSES TO BE TURNED AND REPOSITIONED AND THROWS PILLOWS TO SIDE OF BED. EXPLAINED TO PATIENT NECESSITY TO TURN AND REPOSITION AND OFFLOAD. PATIENT CONTINUES TO REFUSE. PATIENT MADE COMFORTABLE. VSS. ALL NEEDS MET. SAFETY MEASURES OBSERVED. ISOLATION PRECAUTIONS OBSERVED. ONGOING MONITORING
--- NOTE | 2017-01-03 19:30 | NUR ---
RN INITIAL NOTES RECEIVED PT AWAKE ON BED, A/O X3, ABLE TO VERBALIZED NEEDS. ON COOL AEROSOL 10L, 40% FIO2, SHILEY 6, SATURATING WELL, NO S/S OF RESP DISTRESS. CURRENTLY SR ON THE MONITOR, HR 80'S. PT IS ANURIC. LEFT UPPER ARM AV FISTULA NOTED. RIGHT UPPER ARM MIDLINE TKO, FLUSHED AND PATENT, NO S/S OF INFILTRATION/INFECTION, DRESSING CDI. BED LOW AND LOCKED, SIDERAILS UP, CALL LIGHT WITHIN REACH. WILL MONITOR
[2017-01-03] MEDS: MUPIROCIN OINT 2% 22 GM TUBE SCH (20:00)
[2017-01-03] MEDS ORDERED: SECONDARY IV SET 1 EA INFUS.SET MC ONE (20:04)
[2017-01-03] MEDS: ATORVASTATIN 10 MG TABLET PO SCH (21:57)
[2017-01-03] MEDS: ZOLPIDEM TARTRATE 5 MG TABLET PO SCH (21:57)
[2017-01-04] VITALS (21 sets, daily range): BP systolic 98–188; BP diastolic 40–115
[2017-01-04] MEDS: HYDROMORPHONE 1 MG/1 ML DISP.SYRIN IV PRN ×4 (01:47→20:52)
[2017-01-04] MEDS: diphenhydrAMINE HCL 50 MG/ML VIAL IV PRN ×4 (01:47→20:57)
[2017-01-04] MEDS: IPRATROPIUM NEB FS 0.5 MG/2.5 ML AMPUL.NEB NEB SCH ×6 (03:09→23:41)
[2017-01-04] MEDS: ALBUTEROL FS 2.5 MG/3 ML VIAL.NEB NEB SCH ×6 (03:09→23:41)
[2017-01-04] MEDS: PIPERACILLIN /TAZOBACTAM 2.25 G in IV D5W 50 ML IV SCH ×3 (04:03→20:51)
[2017-01-04 04:34] LABS: BASOPHILS % (AUTO) 0.6 % (0.0-2.0); EOSINOPHILS # (AUTO) 0.6 /CMM (0.0-0.7); EOSINOPHILS % (AUTO) 7.9 % (0.0-6.0); HEMATOCRIT 24 % (39-51); HEMOGLOBIN 7.9 g/dL (13.5-17.5); LYMPHOCYTES # (AUTO) 0.7 /CMM (0.8-4.8); LYMPHOCYTES % (AUTO) 9.5 % (20.0-44.0); MEAN CORPUSCULAR HEMOGLOBIN 32 PG (26.0-33.0); MEAN CORPUSCULAR HGB CONC 33 g/dl (31.0-36.0); MEAN CORPUSCULAR VOLUME 97 fL (80-96); MONOCYTES # (AUTO) 0.7 /CMM (0.1-1.30); MONOCYTES % (AUTO) 9.4 % (2.0-12.0); NEUTROPHILS # (AUTO) 5.6 /CMM (1.8-8.9); NEUTROPHILS % (AUTO) 72.6 % (43.0-81.0); PLATELET COUNT (AUTO) 155 /CMM (150-450); RDW COEFFICIENT OF VARIATION 17.2 (11.5-15.0); RED BLOOD CELL COUNT(AUTO) 2.49 MIL/uL (4.5-6.0); WHITE BLOOD COUNT (AUTO) 7.8 K/uL (4.3-11.0)
[2017-01-04 05:07] LABS: CALCIUM, SERUM 8.3 mg/dL (8.5-10.1); CREATININE 5.4 mg/dL (0.6-1.3); MAGNESIUM 1.7 mg/dL (1.8-2.4); PHOSPHORUS 3.2 mg/dL (2.5-4.9); POTASSIUM 3.4 mmol/L (3.5-5.1)
[2017-01-04 05:27] LABS: BAND % (MANUAL) 1 % (0.0-5.0); EOSINOPHILS % (MANUAL) 6 % (0-4); LYMPHOCYTES % (MANUAL) 9 % (16-48); MONOCYTES % (MANUAL) 11 % (0-11.0); NEUTROPHILS % (MANUAL) 73 (42-76)
[2017-01-04] MEDS: HYDROCODONE/APAP 5/325MG 1 EACH TABLET PO PRN ×2 (05:29→18:39)
--- NOTE | 2017-01-04 06:15 | NUR ---
RN CLOSING NOTES PT REMAINS STABLE OF THE MOMENT. ALL DUE MEDS GIVEN, AM CARE PROVIDED. WILL ENDORSE CONTINUITY OF CARE TO AM RN
[2017-01-04] MEDS ORDERED: Magnesium 1GM/D5W 100ML PREMIX 100 ML IV ONE (06:38)
[2017-01-04] MEDS ORDERED: SECONDARY IV SET 1 EA INFUS.SET MC ONE ×3 (06:39→20:40)
[2017-01-04] MEDS ORDERED: CLONIDINE HCL 0.3 MG/24H PTWK 1 EA PATCH TD ONE (06:39)
[2017-01-04] MEDS: Magnesium 1GM/D5W 100ML PREMIX 100 ML IV SCH ×2 (06:44→08:15)
[2017-01-04] MEDS ORDERED: CLONIDINE HCL 0.3 MG/24H PTWK 1 EA PATCH TD SCH (07:00)
--- NOTE | 2017-01-04 07:30 | NUR ---
ICU INITIAL NOTES RECEIVED PT IN BED, EXTREMELY NEEDY, PT IS A/O X4, ABLE TO MAKE NEEDS KNOWN, ABLE TO FOLLOW COMMANDS, PT IS ON COOL AEROSOL, SATING 100%, NO S/S OF RESP.DISTRESS OR SOB NOTED AT THIS TIME, PT IS ON BEDSIDE MONITOR SHOWING SR @86 BPM, NO C/O OF CHEST PAIN OR DISCOMFORT AT THIS TIME, PT IS ON HD, PT HAS MINIMAL URINE OUTPUT, PT HAS ALBINO AV FISTULA, FERNANDO MIDLINE, SL,C/D/I/PATENT,FLUSHING WELL, NO S/S OF INFECTION/ INFILTRATION NOTED AT THIS TIME, PT IS NPO EXCEPT MEDS, ISOLATION PRECAUTIONS OBSERVED AT ALL TIMES, CALL LIGHT WITHIN EASY REACH, WILL MONITOR PT CLOSELY FOR CHANGES
[2017-01-04] MEDS: LEVETIRACETAM (250 MG) 250 MG TABLET PO SCH ×3 (08:15→17:05)
[2017-01-04] MEDS: PANTOPRAZOLE 40 MG TABLET.DR PO SCH (08:15)
[2017-01-04] MEDS: PHENYTOIN EXTENDED RELEASE 100 MG CAPSULE PO SCH ×2 (08:15→17:06)
[2017-01-04] MEDS: ASPIRIN 325 MG TABLET PO SCH (08:15)
[2017-01-04] MEDS: FOLIC ACID 1 MG TABLET PO SCH (08:15)
[2017-01-04] MEDS: LACTOBACILLUS RHAMNOSUS GG 1 EACH CAP.SPRINK PO SCH ×2 (08:15→17:06)
[2017-01-04] MEDS: CALCIUM ACETATE 667 MG TABLET PO SCH ×3 (08:15→17:05)
[2017-01-04] MEDS: MUPIROCIN OINT 2% 22 GM TUBE SCH ×2 (08:16→21:43)
[2017-01-04] MEDS: FLUTICASONE/VILANTEROL 1 EACH BLST.W.DEV IH SCH (08:16)
[2017-01-04] MEDS: AMIODARONE HCL 200 MG TABLET PO SCH (08:16)
[2017-01-04] MEDS ORDERED: IV SET PRIMARY PUMP SET 1 EA INFUS.SET MC ONE ×2 (08:27→21:07)
[2017-01-04] MEDS: POTASSIUM CL. PREMIX PERIPHER. 50 ML IV SCH ×2 (08:32→09:19)
--- NOTE | 2017-01-04 08:33 | NUR ---
WOUND CARE CONSULT: PT PRESENTS WITH RT ARM WOUND WITH INDURATION, PRESENT ON ADMISSION. RECOMMEND SURGICAL CONSULT. PT ALSO NOTED TO HAVE MULTIPLE AREAS OF BRUISING, PRESENT ON ADMISSION. PT ON FIRST STEP MATTRESS. PT IS CONTINENT. RECOMMENDATIONS MADE FOR WOUND CARE/PROTECTION. DISCUSSED WITH NURSING STAFF. IN AGREEMENT WITH PLAN OF CARE. Addendum: 01/04/17 at 0834 by MALENA REYES WNDNU Amended: Links added.
--- NOTE | 2017-01-04 08:42 | NUR ---
ICU NOTES NON ADMINISTERED PINK MEDS FOR PT SAFETY
--- NOTE | 2017-01-04 09:00 | NUR ---
ICU NOTE MDS MADE ROUNDS, AWARE OF ALL LABS AND RESULTS, ALL NEW ORDERS ACK
--- NOTE | 2017-01-04 11:00 | NUR ---
ICU NOTE PT IS BEING EXTREMELY DISRESPECTFUL AND AGGRESSIVE TO STAFF, PT IS SCREAMING, CUSSING AND THROW BEDDING, I ADDRESSED ALL PTS NEEDS TO NO AVAIL. ALL MD'S ARE AWARE AND CHARGE NURSE.
--- NOTE | 2017-01-04 11:42 | NUR ---
PT EXTREMELY AGITATED. THROWING PILLOWS IN ROOM. ZERO RESP. DISTRESS NOTED RN AWARE HHN HELD AT THIS TIME
[2017-01-04] MEDS: METOPROLOL TARTRATE 25 MG TABLET PO SCH ×2 (12:23→17:06)
[2017-01-04] MEDS: hydrALAZINE HCL 25 MG TABLET PO SCH ×2 (12:23→20:52)
[2017-01-04] MEDS: TRAMADOL HCL 50 MG TABLET PO PRN (12:28)
--- NOTE | 2017-01-04 13:20 | NUR ---
ICU NOTE RECEIVED ORDERS TO TRANSFER PT, PT WAS TRANSFERRED TO 319 VIA ACLS PROTOCOL AND RT, ALL BELONGINGS WITH PT, REPORT GIVEN TO ANGELICA MCFARALNE
--- NOTE | 2017-01-04 14:02 | NUR ---
TRANSFER NOTE PATIENT TRANSFERRED FROM ICU TO MED SURG IN STABLE CONDITION. PT APPEARS TO BE IN NO ACUTE DISTRESS, AWAKE AND ORIENTED X4, AMBULATORY WITH ASSIST, ABLE TO COMMUNICATE NEEDS. PATIENT IS ON STRICT PAIN MANAGEMENT AROUND THE CLOCK WITH BENADRYL AND DILAUDID. PT IS ON TRACH WITH COOL AEROSOL FLOW RATE OF 10L, SATING 95%, NO S/S OF RESP.DISTRESS OR SOB NOTED AT THIS TIME. ALBINO AV FISTULA AND FERNANDO MIDLINE INTACT AND PATENT S/L TKO. MRSA NARES ISOLATION PRECAUTIONS OBSERVED, SAFETY PRECAUTIONS RENDERED, CALL LIGHT PLACED WITHIN REACH. WILL CONTINUE TO MONITOR.
--- NOTE | 2017-01-04 14:45 | NUR ---
TELE/RN NOTES BENADRYL 25MG 0.5ML AND DILAUDID 0.5MG 0.5ML GIVEN VIA IV FOR 8/10 GENERALIZED PAIN. PAIN MANAGED AROUND THE CLOCK. WILL REASSESS PATIENT FOR EFFECTIVENESS AT SCHEDULED TIME
[2017-01-04] MEDS: AMLODIPINE BESYLATE 5 MG TABLET PO SCH (17:09)
--- NOTE | 2017-01-04 19:03 | NUR ---
TELE/RN NOTES PATIENT SITTING UP IN CHAIR, APPEARS CALM AND COMFORTABLE. NO SIGNIFICANT CHANGES NOTED. PAIN MANAGEMENT DONE, ALL DUE MEDICATIONS GIVEN, ALL NEED MET AND ATTENDED. PER TELE MONITOR SR WITH BBB HR 86. PATIENT KEPT CLEAN AND DRY. SAFETY MEASURES RENDERED, CALL LIGHT PLACED WITHIN REACH. WILL ENDORSE CARE TO SALAD MAKER FOR AGATHA.
[2017-01-04] MEDS ORDERED: IV NS 0.9% 250 ML IV ONE (20:40)
[2017-01-04] MEDS: ATORVASTATIN 10 MG TABLET PO SCH (21:00)
[2017-01-04] MEDS: ZOLPIDEM TARTRATE 5 MG TABLET PO SCH (21:01)
--- NOTE | 2017-01-04 22:27 | NUR ---
MS RN INITIAL NOTES RECEIVED REPORT FROM DAY SHIFT. PT IS A/O X3 ABLE TO COMMUNICATE NEEDS. IS SITTING UP AT BEDSIDE IN THE CHAIR. PT STATES HE IS IN PAIN 8/10 AND REQUESTS DILAUDID WITH BENADRYL AROUND THE CLOCK, NOTIFIED HIM THAT HE CAN GET MEDICATION WHEN ITS DUE.NO SIGNS OF SOB OR DISTRESS PT IS ON 10 L COOL AEROSOL. ALBINO AV FISTULA INTACT AND FERNANDO MIDLINE INTACT AND PATENT. ENCOURAGED PT TO MOVE TO THE BED SINCE HE WAS DOZING OFF IN THE CHAIR. ENSURED BED IS IN LOW AND LOCKED POSITION, CALL LIGHT IS WITHIN REACH. WILL CONTINUE TO MONITOR PT
[2017-01-05] VITALS: BP 110/65
--- NOTE | 2017-01-05 01:30 | NUR ---
TELEGRAPH OFFICE MANAGER NOTE GOT A REPORT FROM SIRIA FOR AGATHA.
--- NOTE | 2017-01-05 03:00 | NUR ---
CLASS C TRUCK DRIVER NOTE ADMINISTERED BENADRYL 25MG AND DILAUDID 0.5MG IVP PER PATIENT'S REQUEST FOR PAIN MANAGEMENT. WILL MONITOR EFFECTIVENESS.
[2017-01-05] MEDS: diphenhydrAMINE HCL 50 MG/ML VIAL IV PRN ×4 (03:02→21:14)
[2017-01-05] MEDS: HYDROMORPHONE 1 MG/1 ML DISP.SYRIN IV PRN ×4 (03:03→21:14)
[2017-01-05] MEDS: ALBUTEROL FS 2.5 MG/3 ML VIAL.NEB NEB SCH ×6 (03:17→23:45)
[2017-01-05] MEDS: IPRATROPIUM NEB FS 0.5 MG/2.5 ML AMPUL.NEB NEB SCH ×6 (03:17→23:45)
[2017-01-05 04:00] VITALS: BP 101/68
[2017-01-05] MEDS: hydrALAZINE HCL 25 MG TABLET PO SCH ×3 (04:34→23:08)
[2017-01-05] MEDS: PIPERACILLIN /TAZOBACTAM 2.25 G in IV D5W 50 ML IV SCH ×3 (04:38→21:14)
[2017-01-05] MEDS: TRAMADOL HCL 50 MG TABLET PO PRN ×2 (06:44→18:30)
[2017-01-05 06:45] LABS: BASOPHILS % (AUTO) 0.4 % (0.0-2.0); EOSINOPHILS # (AUTO) 0.8 /CMM (0.0-0.7); EOSINOPHILS % (AUTO) 11.1 % (0.0-6.0); HEMATOCRIT 25 % (39-51); HEMOGLOBIN 8.5 g/dL (13.5-17.5); LYMPHOCYTES # (AUTO) 0.7 /CMM (0.8-4.8); MEAN CORPUSCULAR HEMOGLOBIN 32 PG (26.0-33.0); MEAN CORPUSCULAR HGB CONC 34 g/dl (31.0-36.0); MEAN CORPUSCULAR VOLUME 96 fL (80-96); MONOCYTES # (AUTO) 0.7 /CMM (0.1-1.30); NEUTROPHILS # (AUTO) 5.3 /CMM (1.8-8.9); NEUTROPHILS % (AUTO) 70.5 % (43.0-81.0); PLATELET COUNT (AUTO) 144 /CMM (150-450); RDW COEFFICIENT OF VARIATION 16.9 (11.5-15.0); RED BLOOD CELL COUNT(AUTO) 2.63 MIL/uL (4.5-6.0); WHITE BLOOD COUNT (AUTO) 7.6 K/uL (4.3-11.0)
--- NOTE | 2017-01-05 06:45 | NUR ---
STAFFING ANALYST NOTE PATIENT IS ASKING PAIN MED (DILAUDID), BUT IT WAS NOT DUE, WANTS TO TAKE TRAMADOL 50MG PO INSTEAD.
--- NOTE | 2017-01-05 06:49 | NUR ---
RECEPTIONIST SCHEDULER NOTE PATIENT IS RESTING IN A CHAIR, NO S/S OF ACUTE RESPIRATORY DISTRESS OR PAIN AT THIS TIME, GETTING 10L O2 WITH COOL AEROSOL. TELE MONITOR SR WITH BBB 79. MID LINE IS PATENT AND INTACT. WILL ENDORSE TO DAY SHIFT NURSE FOR AGATHA.
[2017-01-05 07:07] LABS: CALCIUM, SERUM 8.4 mg/dL (8.5-10.1); CREATININE 6.6 mg/dL (0.6-1.3); MAGNESIUM 2.1 mg/dL (1.8-2.4); PHOSPHORUS 3.6 mg/dL (2.5-4.9); POTASSIUM 3.7 mmol/L (3.5-5.1)
[2017-01-05 08:00] VITALS: BP 154/92
--- NOTE | 2017-01-05 08:24 | NUR ---
RN OPENING NOTES PT IS A/O X4 ABLE TO COMMUNICATE NEEDS. IS SITTING UP AT BEDSIDE IN THE CHAIR EATING BREAKFAST. PT STATES HE IS IN PAIN 8/10 AND REQUESTS DILAUDID WITH BENADRYL AROUND THE CLOCK, NOTIFIED HIM THAT HE CAN GET MEDICATION WHEN ITS DUE.NO SIGNS OF SOB OR DISTRESS PT IS ON 10 L COOL AEROSOL. ALBINO AV FISTULA INTACT AND FERNANDO MIDLINE INTACT AND PATENT. ENSURED BED IS IN LOW AND LOCKED POSITION, CALL LIGHT IS WITHIN REACH. WILL CONTINUE TO MONITOR PT
[2017-01-05] MEDS: AMIODARONE HCL 200 MG TABLET PO SCH (09:00)
[2017-01-05] MEDS: METOPROLOL TARTRATE 25 MG TABLET PO SCH ×3 (09:00→17:49)
[2017-01-05] MEDS: AMLODIPINE BESYLATE 5 MG TABLET PO SCH ×2 (09:00→17:49)
--- NOTE | 2017-01-05 09:00 | NUR ---
PATIENT IS AMBULATING IN ROOM WITH PHYSICAL THERAPY AT THIS TIME.
--- NOTE | 2017-01-05 09:00 | NUR ---
PATIENT TO RECEIVE DIALYSIS TODAY. HELD 0900 BP MEDS: AMIODARONE, LOPRESSOR, NORVASC. PATIENT BP AT 0800 154/92 HR 83.
[2017-01-05] MEDS: PHENYTOIN EXTENDED RELEASE 100 MG CAPSULE PO SCH ×2 (09:17→17:45)
[2017-01-05] MEDS: ASPIRIN 325 MG TABLET PO SCH (09:18)
[2017-01-05] MEDS: LACTOBACILLUS RHAMNOSUS GG 1 EACH CAP.SPRINK PO SCH ×2 (09:18→17:45)
[2017-01-05] MEDS: LEVETIRACETAM (250 MG) 250 MG TABLET PO SCH ×3 (09:18→17:45)
[2017-01-05] MEDS: PANTOPRAZOLE 40 MG TABLET.DR PO SCH (09:19)
[2017-01-05] MEDS: FOLIC ACID 1 MG TABLET PO SCH (09:19)
[2017-01-05] MEDS: CALCIUM ACETATE 667 MG TABLET PO SCH ×3 (09:19→17:45)
[2017-01-05] MEDS: FLUTICASONE/VILANTEROL 1 EACH BLST.W.DEV IH SCH (09:20)
[2017-01-05] MEDS: MUPIROCIN OINT 2% 22 GM TUBE SCH ×2 (09:21→21:15)
--- NOTE | 2017-01-05 11:37 | NUR ---
PYXIS NOT AVAILABLE. PT STABLE. NO NEED FOR TX AT THIS TIME.
[2017-01-05] MEDS ORDERED: EPOETIN ALFA (10,000 UNIT) 10,000 UNIT/ML VIAL IV ONE (15:00)
--- NOTE | 2017-01-05 15:54 | NUR ---
PYXIS NOT AVAILABLE. PT STABLE. NO NEED FOR TX AT THIS TIME.
[2017-01-05 16:00] VITALS: BP 169/90
[2017-01-05] MEDS: VANCOMYCIN 500 MG in IV D5W 100 ML IV PRN (18:25)
--- NOTE | 2017-01-05 19:05 | NUR ---
MS RN OPENING NOTES: RECEIVED PT AND PT IS A/O X4 AND IS CURRENTLY LAYING DOWN AND RESTING IN BED AT THE MOMENT. NO SIGNS OR SYMPTOMS OF SOB OR DISTRESS. PT IS ON 10 L COOL AEROSOL. PT HAS SHILEY #6 TRACH. PT HAS ALBINO AV FISTULA INTACT AND FERNANDO MIDLINE INTACT AND PATENT. BED KEPT IN LOW, LOCKED POSITION, AND CALL LIGHT IS WITHIN PT'S REACH. WILL CONTINUE TO MONITOR PT.
[2017-01-05 20:00] VITALS: BP 125/82
--- NOTE | 2017-01-05 21:14 | NUR ---
MS RN NOTES: PT COMPLAINING OF GENERALIZED PAIN. PT WAS ADMINISTERED DILAUDID AND BENADRYL IV. WILL CONTINUE TO MONITOR PT.
[2017-01-05] MEDS: ATORVASTATIN 10 MG TABLET PO SCH (23:07)
[2017-01-05] MEDS: ZOLPIDEM TARTRATE 5 MG TABLET PO SCH (23:09)
[2017-01-05] MEDS: HEPARIN SODIUM, PORCINE 5000 UNITS/1 ML VIAL SQ SCH (23:12)
[2017-01-06] MEDS: diphenhydrAMINE HCL 50 MG/ML VIAL IV PRN ×3 (03:14→18:35)
[2017-01-06] MEDS: HYDROMORPHONE 1 MG/1 ML DISP.SYRIN IV PRN ×3 (03:14→18:35)
--- NOTE | 2017-01-06 03:14 | NUR ---
MS RN NOTES: PT COMPLAINED OF PAIN AND WAS ADMINISTERED DILAUDID 0.5MG AND BENADRYL 25MG IV. WILL CONTINUE TO MONITOR PT.
[2017-01-06] MEDS: ALBUTEROL FS 2.5 MG/3 ML VIAL.NEB NEB SCH ×5 (03:46→19:48)
[2017-01-06] MEDS: IPRATROPIUM NEB FS 0.5 MG/2.5 ML AMPUL.NEB NEB SCH ×5 (03:47→19:48)
[2017-01-06] MEDS: PIPERACILLIN /TAZOBACTAM 2.25 G in IV D5W 50 ML IV SCH ×3 (04:36→21:43)
[2017-01-06 05:00] VITALS: BP 148/94
[2017-01-06] MEDS: hydrALAZINE HCL 25 MG TABLET PO SCH ×3 (06:13→21:00)
[2017-01-06] MEDS: TRAMADOL HCL 50 MG TABLET PO PRN ×3 (06:18→21:53)
--- NOTE | 2017-01-06 06:18 | NUR ---
MS RN NOTES: PT COMPLAINED OF PAIN AND WAS ADMINISTERED ULTRAM 50MG PO. WILL CONTINUE TO MONITOR PT.
[2017-01-06 06:49] LABS: BASOPHILS % (AUTO) 0.4 % (0.0-2.0); EOSINOPHILS # (AUTO) 1.1 /CMM (0.0-0.7); EOSINOPHILS % (AUTO) 10.6 % (0.0-6.0); HEMATOCRIT 29 % (39-51); HEMOGLOBIN 9.7 g/dL (13.5-17.5); LYMPHOCYTES # (AUTO) 1.6 /CMM (0.8-4.8); LYMPHOCYTES % (AUTO) 15.4 % (20.0-44.0); MEAN CORPUSCULAR HEMOGLOBIN 32 PG (26.0-33.0); MEAN CORPUSCULAR HGB CONC 33 g/dl (31.0-36.0); MEAN CORPUSCULAR VOLUME 97 fL (80-96); MONOCYTES # (AUTO) 1.1 /CMM (0.1-1.30); MONOCYTES % (AUTO) 10.7 % (2.0-12.0); NEUTROPHILS # (AUTO) 6.7 /CMM (1.8-8.9); NEUTROPHILS % (AUTO) 62.9 % (43.0-81.0); PLATELET COUNT (AUTO) 171 /CMM (150-450); RDW COEFFICIENT OF VARIATION 17.2 (11.5-15.0); RED BLOOD CELL COUNT(AUTO) 3.02 MIL/uL (4.5-6.0); WHITE BLOOD COUNT (AUTO) 10.7 K/uL (4.3-11.0)
--- NOTE | 2017-01-06 07:00 | NUR ---
MS RN INITIAL NOTES REPORT RECEIVED AT THE BEDSIDE. PATIENT IS SLEEPING. NO SOB OR DISTRESS NOTED AT THIS TIME. PATIENT DOES NOT APPEAR TO BE IN PAIN, NO FACIAL GRIMACE NOTED. BED IN LOW POSITION, OXYGEN COLLAR IN PLACE, CALL LIGHT WITHIN PATIENT REACH. WILL CONTINUE TO MONITOR.
[2017-01-06 07:26] LABS: CALCIUM, SERUM 8.7 mg/dL (8.5-10.1); CREATININE 6.4 mg/dL (0.6-1.3); MAGNESIUM 2.2 mg/dL (1.8-2.4); PHOSPHORUS 3.9 mg/dL (2.5-4.9); POTASSIUM 4.5 mmol/L (3.5-5.1)
--- NOTE | 2017-01-06 07:28 | NUR ---
MS RN CLOSING NOTES: ALL NEEDS WERE ATTENDED AND ANTICIPATED FOR. PT IS IN BED ASLEEP AND RESTING. NO SIGNS OR SYMPTOMS OF SOB OR DISTRESS. PT IS ON 10 L COOL AEROSOL. PT HAS SHILEY #6 TRACH. ENDORSED TO AM NURSE THAT THERE WAS NO AVAILABLE SHILEY #6 INNER CANNULA AND RT MICHELLE Del Castillo SAID THAT HE WOULD ENDORSE TO FOLLOWING RT TO GET FROM [facility] AND WILL CHANGE FOR AM SHIFT. PT HAS ALBINO AV FISTULA INTACT AND FERNANDO MIDLINE INTACT AND PATENT/SALINE LOCK. BED KEPT IN LOW, LOCKED POSITION, HOB ELEVATED, AND CALL LIGHT IS WITHIN PT'S REACH. ENDORSED TO AM NURSE FOR AGATHA.
[2017-01-06 08:00] VITALS: BP 141/94
[2017-01-06] MEDS: FLUTICASONE/VILANTEROL 1 EACH BLST.W.DEV IH SCH (08:19)
[2017-01-06] MEDS: PHENYTOIN EXTENDED RELEASE 100 MG CAPSULE PO SCH ×2 (08:20→17:20)
[2017-01-06] MEDS: FOLIC ACID 1 MG TABLET PO SCH (08:20)
[2017-01-06] MEDS: LACTOBACILLUS RHAMNOSUS GG 1 EACH CAP.SPRINK PO SCH ×2 (08:20→17:19)
[2017-01-06] MEDS: ASPIRIN 325 MG TABLET PO SCH (08:20)
[2017-01-06] MEDS: CALCIUM ACETATE 667 MG TABLET PO SCH ×3 (08:20→17:19)
[2017-01-06] MEDS: LEVETIRACETAM (250 MG) 250 MG TABLET PO SCH ×3 (08:20→17:19)
[2017-01-06] MEDS: AMLODIPINE BESYLATE 5 MG TABLET PO SCH ×2 (08:20→17:20)
[2017-01-06] MEDS: PANTOPRAZOLE 40 MG TABLET.DR PO SCH (08:20)
[2017-01-06] MEDS: METOPROLOL TARTRATE 25 MG TABLET PO SCH ×3 (08:21→17:20)
[2017-01-06] MEDS: AMIODARONE HCL 200 MG TABLET PO SCH (08:21)
[2017-01-06] MEDS: HEPARIN SODIUM, PORCINE 5000 UNITS/1 ML VIAL SQ SCH ×2 (08:21→21:47)
[2017-01-06] MEDS: MUPIROCIN OINT 2% 22 GM TUBE SCH ×2 (08:22→21:42)
--- NOTE | 2017-01-06 10:49 | NUR ---
RN NOTES PATIENT WILL HAVE DIALYSIS TODAY PER DR WEISS. WILL HOLD BP MEDS UNTIL AFTER PATIENT DIALYSIS. STATES THAT HE WISHES TO HAVE UP TO 5L TAKEN FROM THE PATIENT WITH DIALYSIS.
[2017-01-06 11:44] VITALS: BP 140/94
[2017-01-06 12:00] VITALS: BP 140/94
--- NOTE | 2017-01-06 12:34 | NUR ---
RN NOTES PATIENT CURRENTLY HAVING DIALYSIS. WILL HOLD BP MEDS AND GIVE ZOSYN AFTER DIALYSIS.
[2017-01-06 16:00] VITALS: BP 136/74
--- NOTE | 2017-01-06 18:54 | NUR ---
MS RN CLOSING NOTES NO SIGNIFICANT CHANGE IN PATIENT CONDITION. NO SOB OR DISTRESS NOTED AT THIS TIME. PATIENT MEDICATED FOR PAIN. BED IN A LOW POSITION, CALL LIGHT WITHIN PATIENT REACH. WILL ENDORSE FOR AGATHA.
--- NOTE | 2017-01-06 19:20 | NUR ---
RN INITIAL NOTES RECEIVED PT AWAKE ON BED, ON COOL AEROSOL AT 10LPM WITH GOOD SATURATION. NO SOB, NO S/S OF RESPIRATORY DISTRESS. LEFT UPPER ARM AV FISTULA NOTED WITH BRUIT AND THRILL PRESENT. PT ALERT AND ORIENTED X3, DENIES ANY PAIN AND DISCOMFORT AT THIS TIME. RIGHT UPPER ARM MIDLINE PATENT AND INTACT, NO S/S OF INFILTRATION NOTED. BED LOW AND LOCKED, SIDE RAILS X3 UP, CALL LIGHT WITHIN REACH. WILL CONTINUE TO MONITOR
[2017-01-06 20:00] VITALS: BP 101/73
[2017-01-06] MEDS: ZOLPIDEM TARTRATE 5 MG TABLET PO SCH (21:46)
[2017-01-06] MEDS: ATORVASTATIN 10 MG TABLET PO SCH (21:46)
--- NOTE | 2017-01-06 21:53 | NUR ---
RN NOTES PT COMPLAINING OF 7/10 GENERALIZE BODY PAIN, ULTRAM 50 MG TAB GIVEN PO AND TOLERATED WELL. WILL CONTINUE TO MONITOR PT.
[2017-01-07] MEDS: ALBUTEROL FS 2.5 MG/3 ML VIAL.NEB NEB SCH ×7 (00:13→23:45)
[2017-01-07] MEDS: IPRATROPIUM NEB FS 0.5 MG/2.5 ML AMPUL.NEB NEB SCH ×7 (00:13→23:45)
--- NOTE | 2017-01-07 00:29 | NUR ---
RN NOTES PT VERBALIZED 9/10 GENERALIZE BODY PAIN, DILAUDID 1 MG GIVEN IV . WILL CONTINUE TO MONITOR.
[2017-01-07] MEDS: HYDROMORPHONE 1 MG/1 ML DISP.SYRIN IV PRN ×4 (00:39→19:03)
[2017-01-07] MEDS: diphenhydrAMINE HCL 50 MG/ML VIAL IV PRN ×4 (00:39→19:03)
--- NOTE | 2017-01-07 00:41 | NUR ---
RN NOTES PT COMPLAINS OF 9/10 GENERALIZE BODY PAIN, DILAUDID 1MG GIVEN IV. WILL CONTINUE TO MONITOR PT.
[2017-01-07] MEDS: hydrALAZINE HCL 25 MG TABLET PO SCH ×3 (05:57→21:00)
[2017-01-07] MEDS: PIPERACILLIN /TAZOBACTAM 2.25 G in IV D5W 50 ML IV SCH (05:57)
[2017-01-07 06:42] LABS: BASOPHILS % (AUTO) 0.4 % (0.0-2.0); EOSINOPHILS # (AUTO) 1.2 /CMM (0.0-0.7); EOSINOPHILS % (AUTO) 12.5 % (0.0-6.0); HEMATOCRIT 31 % (39-51); LYMPHOCYTES % (AUTO) 21.5 % (20.0-44.0); MEAN CORPUSCULAR HEMOGLOBIN 32 PG (26.0-33.0); MEAN CORPUSCULAR HGB CONC 33 g/dl (31.0-36.0); MEAN CORPUSCULAR VOLUME 97 fL (80-96); MONOCYTES # (AUTO) 0.9 /CMM (0.1-1.30); MONOCYTES % (AUTO) 9.7 % (2.0-12.0); NEUTROPHILS # (AUTO) 5.2 /CMM (1.8-8.9); NEUTROPHILS % (AUTO) 55.9 % (43.0-81.0); PLATELET COUNT (AUTO) 152 /CMM (150-450); RDW COEFFICIENT OF VARIATION 17.4 (11.5-15.0); RED BLOOD CELL COUNT(AUTO) 3.15 MIL/uL (4.5-6.0); WHITE BLOOD COUNT (AUTO) 9.4 K/uL (4.3-11.0)
[2017-01-07 07:09] LABS: CREATININE 7.1 mg/dL (0.6-1.3); MAGNESIUM 2.3 mg/dL (1.8-2.4); PHOSPHORUS 4.6 mg/dL (2.5-4.9); POTASSIUM 5.3 mmol/L (3.5-5.1)
--- NOTE | 2017-01-07 07:15 | NUR ---
MS RN INITIAL NOTES REPORT RECEIVED AT THE BEDSIDE. PATIENT IS RESTING COMFORTABLY IN BED. NO SOB OR DISTRESS NOTED AT THIS TIME. PATIENT REPORTS PAIN, BUT WAS MEDICATED BY NIGHT RN WITHIN THE LAST 15MINS. BED IN A LOW POSITION, CALL LIGHT WITHIN PATIENT REACH. WILL CONTINUE TO MONITOR.
--- NOTE | 2017-01-07 07:51 | NUR ---
RN NOTES PT AWAKE, HOB ELEVATED, NO SOB, NO SIGNS OF DISTRESS AND DISCOMFORT NOTED. TOLERATING COOL AEROSOL AT 10LPM O2. VITAL SIGNS STABLE, AFEBRILE. NO EPISODE OF NAUSEA AND VOMITING, DENIES CHEST PAIN. KEPT PAIN AT TOLERABLE LEVEL.. ALL NEEDS ATTENDED. NO SIGNIFICANT CHANGE IN CONDITION NOTED. ENDORSED TO MORNING RN FOR CONTINUITY OF CARE.
[2017-01-07 08:00] VITALS: BP 144/82
[2017-01-07] MEDS: AMLODIPINE BESYLATE 5 MG TABLET PO SCH ×2 (08:39→17:00)
[2017-01-07] MEDS: AMIODARONE HCL 200 MG TABLET PO SCH (08:39)
[2017-01-07] MEDS: PHENYTOIN EXTENDED RELEASE 100 MG CAPSULE PO SCH ×2 (08:39→16:37)
[2017-01-07] MEDS: CALCIUM ACETATE 667 MG TABLET PO SCH ×3 (08:39→16:37)
[2017-01-07] MEDS: PANTOPRAZOLE 40 MG TABLET.DR PO SCH (08:39)
[2017-01-07] MEDS: METOPROLOL TARTRATE 25 MG TABLET PO SCH ×3 (08:40→17:00)
[2017-01-07] MEDS: LACTOBACILLUS RHAMNOSUS GG 1 EACH CAP.SPRINK PO SCH ×2 (08:40→16:37)
[2017-01-07] MEDS: ASPIRIN 325 MG TABLET PO SCH (08:40)
[2017-01-07] MEDS: FOLIC ACID 1 MG TABLET PO SCH (08:40)
[2017-01-07] MEDS: LEVETIRACETAM (250 MG) 250 MG TABLET PO SCH ×3 (08:40→16:37)
[2017-01-07] MEDS: MUPIROCIN OINT 2% 22 GM TUBE SCH ×2 (08:41→21:19)
[2017-01-07] MEDS: HEPARIN SODIUM, PORCINE 5000 UNITS/1 ML VIAL SQ SCH ×2 (08:42→21:21)
[2017-01-07] MEDS: FLUTICASONE/VILANTEROL 1 EACH BLST.W.DEV IH SCH (08:43)
[2017-01-07] MEDS: TRAMADOL HCL 50 MG TABLET PO PRN ×3 (10:22→21:28)
[2017-01-07] MEDS ORDERED: HYDROCODONE/APAP 5/325MG 1 EACH TABLET PO PRN (11:30)
[2017-01-07] MEDS: LEVOFLOXACIN (250MG) 250 MG TABLET PO SCH (12:48)
--- NOTE | 2017-01-07 13:23 | NUR ---
RN NOTES HOLDING BP MEDS PATIENT IS HAVING DIALYSIS TODAY.
[2017-01-07 16:00] VITALS: BP 97/53
[2017-01-07] MEDS: LORAZEPAM 1 MG TABLET PO PRN (16:37)
--- NOTE | 2017-01-07 17:10 | NUR ---
RN NOTES CHANGED INNER TUBE ON TRACH; PA #6.
--- NOTE | 2017-01-07 19:22 | NUR ---
MS RN CLOSING NOTES NO SIGNIFICANT CHANGES IN PATIENT CONDITION THROUGHOUT THE SHIFT. NO SOB OR DISTRESS NOTED AT THIS TIME. PATIENT HAS BEEN MEDICATED FOR PAIN. BED IN A LOW POSITION, CALL LIGHT WITHIN PATIENT REACH. ENDORSED TO KAITLIN FOR AGATHA.
--- NOTE | 2017-01-07 19:30 | NUR ---
MS RN OPENING NOTES: PATIENT SITTING ON BED, AOX2, ON O2 VIA COOL AEROSOL/ TRACHE COLLAR. BREATHING EVEN AND UNLABORED AT THIS TIME, BREATH SOUNDS DIMINISHED OVER LUNG BASES. FERNANDO MIDLINE INTACT AND PATENT TO FLUSH. PROVIDED FOR COMFORT AND SAFETY. BED IN LOWEST AND LOCKED POSITION, SIDERAILS UP X3, WILL CONT TO MONITOR.
[2017-01-07] MEDS: VANCOMYCIN 500 MG in IV D5W 100 ML IV PRN (20:01)
--- NOTE | 2017-01-07 21:00 | NUR ---
RN NOTES: PATIENT ACCIDENTALLY PULLED OUT MIDLINE WHILE GETTING TO CHAIR FROM BED. ATTEMPTED TO REINSERT NEW IV LINE X2, HOWEVER, ATTEMPTS WERE UNSUCCESSFUL. CALLED MUSIC EDUCATION ADJUNCT PROFESSOR FOR ASSISTANCE FROM MIDLINE RN.
[2017-01-07] MEDS: ATORVASTATIN 10 MG TABLET PO SCH (21:20)
[2017-01-07] MEDS: ZOLPIDEM TARTRATE 5 MG TABLET PO SCH (22:31)
[2017-01-07 22:34] VITALS: BP 102/78
--- NOTE | 2017-01-07 23:00 | NUR ---
RN NOTES: NEW FERNANDO MIDLINE G20 INSERTED BY ANGELICA TURNER, WITH GOOD BLOOD RETURN.
[2017-01-08] MEDS: diphenhydrAMINE HCL 50 MG/ML VIAL IV PRN ×4 (00:28→20:08)
[2017-01-08] MEDS: HYDROMORPHONE 1 MG/1 ML DISP.SYRIN IV PRN ×4 (00:29→20:08)
--- NOTE | 2017-01-08 00:32 | NUR ---
RN NOTES: PATIENT COMPLAINED OF 8/10PAIN OVER HIS ABDOMEN. ADMINISTERED DILAUDID 0.5 MG IV WITH BENADRYL 25 MG IV. WILL CONT TO MONITOR.
[2017-01-08] MEDS: IPRATROPIUM NEB FS 0.5 MG/2.5 ML AMPUL.NEB NEB SCH ×6 (02:48→23:31)
[2017-01-08] MEDS: ALBUTEROL FS 2.5 MG/3 ML VIAL.NEB NEB SCH ×6 (02:48→23:31)
[2017-01-08] MEDS: hydrALAZINE HCL 25 MG TABLET PO SCH ×3 (06:00→21:35)
--- NOTE | 2017-01-08 06:50 | NUR ---
MS RN CLOSING NOTES: PATIENT IN BED, AOX2, ON O2 AT 6 LPM VIA TRACHE COLLAR/ COOL AEROSOL, O2 SAT AT 98%, VS REMAINED STABLE THROUGH SHIFT. FERNANDO MIDLINE INTACT AND PATENT TO FLUSH. PATIENT COMPLAINED OF PAIN OVER LEFT LEG AND LEFT HIP AND LEFT ABDOMEN, ADMINISTERED PRN DILAUDID 0.5 MG IV AND DIPHENHYDRAMINE 25 MG IV PRN. NO ACUTE CHANGE IN CONDITION NOTED THROUGH SHIFT. ABLE TO SLEEP WELL AFTER MIDNIGHT. WILL ENDORSE TO AM RN FOR AGATHA.
[2017-01-08 07:38] LABS: BASOPHILS % (AUTO) 0.2 % (0.0-2.0); EOSINOPHILS # (AUTO) 1.2 /CMM (0.0-0.7); EOSINOPHILS % (AUTO) 12.4 % (0.0-6.0); HEMATOCRIT 27 % (39-51); LYMPHOCYTES # (AUTO) 1.4 /CMM (0.8-4.8); MEAN CORPUSCULAR HEMOGLOBIN 32 PG (26.0-33.0); MEAN CORPUSCULAR HGB CONC 33 g/dl (31.0-36.0); MEAN CORPUSCULAR VOLUME 97 fL (80-96); MONOCYTES # (AUTO) 0.9 /CMM (0.1-1.30); MONOCYTES % (AUTO) 9.5 % (2.0-12.0); NEUTROPHILS # (AUTO) 6.4 /CMM (1.8-8.9); NEUTROPHILS % (AUTO) 63.9 % (43.0-81.0); PLATELET COUNT (AUTO) 172 /CMM (150-450); RDW COEFFICIENT OF VARIATION 17.2 (11.5-15.0); RED BLOOD CELL COUNT(AUTO) 2.77 MIL/uL (4.5-6.0)
--- NOTE | 2017-01-08 07:41 | NUR ---
MS RN OPENING NOTE PATIENT IS ALERT AND ORIENTED x4. NO PAIN AT THIS TIME. NO SOB OR DISTRESS NOTED. HAS VENT ON COOL AEROSOL. ABLE TO COMMUNICATE NEEDS. IV INTACT AND PATENT NO REDNESS OR SWELLING NOTED. CALL LIGHT WITHIN REACH. SAFETY MEASURES IMPLEMENTED. ON HEMODIALYSIS DAILY. WILL CONTINUE TO MONITOR
[2017-01-08 08:00] VITALS: BP 170/112
[2017-01-08 08:09] LABS: CALCIUM, SERUM 8.7 mg/dL (8.5-10.1); CREATININE 7.1 mg/dL (0.6-1.3); PHOSPHORUS 4.6 mg/dL (2.5-4.9); POTASSIUM 4.4 mmol/L (3.5-5.1)
[2017-01-08] MEDS: METOPROLOL TARTRATE 25 MG TABLET PO SCH ×3 (09:00→16:20)
[2017-01-08] MEDS: AMIODARONE HCL 200 MG TABLET PO SCH (09:00)
[2017-01-08] MEDS: AMLODIPINE BESYLATE 5 MG TABLET PO SCH ×2 (09:00→16:20)
--- NOTE | 2017-01-08 09:00 | NUR ---
MS RN NOTE HELD BLOOD PRESSURE MEDICATIONS DUE TO HEMODIALYSIS TODAY
[2017-01-08] MEDS: PHENYTOIN EXTENDED RELEASE 100 MG CAPSULE PO SCH ×2 (09:03→16:19)
[2017-01-08] MEDS: FOLIC ACID 1 MG TABLET PO SCH (09:03)
[2017-01-08] MEDS: ASPIRIN 325 MG TABLET PO SCH (09:03)
[2017-01-08] MEDS: LACTOBACILLUS RHAMNOSUS GG 1 EACH CAP.SPRINK PO SCH ×2 (09:03→16:19)
[2017-01-08] MEDS: CALCIUM ACETATE 667 MG TABLET PO SCH ×3 (09:03→16:19)
[2017-01-08] MEDS: PANTOPRAZOLE 40 MG TABLET.DR PO SCH (09:03)
[2017-01-08] MEDS: LEVETIRACETAM (250 MG) 250 MG TABLET PO SCH ×3 (09:03→16:19)
[2017-01-08] MEDS: FLUTICASONE/VILANTEROL 1 EACH BLST.W.DEV IH SCH (09:03)
[2017-01-08] MEDS: HEPARIN SODIUM, PORCINE 5000 UNITS/1 ML VIAL SQ SCH ×2 (09:04→21:42)
[2017-01-08] MEDS: MUPIROCIN OINT 2% 22 GM TUBE SCH ×2 (09:09→21:34)
[2017-01-08] MEDS: LEVOFLOXACIN (250MG) 250 MG TABLET PO SCH (11:19)
[2017-01-08 12:27] VITALS: BP 170/112
[2017-01-08 16:00] VITALS: BP 137/79
--- NOTE | 2017-01-08 18:24 | NUR ---
MS RN CLOSING NOTE PATIENT IS ALERT AND ORIENTED x4. NO PAIN AT THIS TIME. NO SOB OR DISTRESS NOTED. CALL LIGHT WITHIN REACH AT ALL TIMES. SAFETY MEASURES IMPLEMENTED. IV INTACT AND PATENT NO REDNESS OR SWELLING NOTED. INNER CANNULA CHANGED. KEPT CLEAN DRY AND INTACT. HEMODIALYSIS TOMORROW. POSSIBLE DISCHARGE TOMORROW. WILL ENDORSE TO COMBINATION MAN NURSE
--- NOTE | 2017-01-08 19:00 | NUR ---
MS RN NOTES PT RECEIVED IN BED, NO S/S OF RESPIRATORY DISTRESS OR SOB. IV SITE INTACT WITH NO S/S OF INFILTRATION NOTED. SAFE ENVIRONMENT PROVIDED FREE OF CLUTTERS .BED IN LOCKED, LOW POSITION. CALL LIGHT WITHIN EASY REACH. WILL CONTINUE TO MONITOR.
[2017-01-08 20:00] VITALS: BP 155/93
[2017-01-08] MEDS: ATORVASTATIN 10 MG TABLET PO SCH (21:35)
[2017-01-08] MEDS: ZOLPIDEM TARTRATE 5 MG TABLET PO SCH (21:36)
[2017-01-09] MEDS: diphenhydrAMINE HCL 50 MG/ML VIAL IV PRN ×4 (02:08→20:29)
[2017-01-09] MEDS: HYDROMORPHONE 1 MG/1 ML DISP.SYRIN IV PRN ×4 (02:08→20:20)
[2017-01-09] MEDS: IPRATROPIUM NEB FS 0.5 MG/2.5 ML AMPUL.NEB NEB SCH ×6 (03:40→22:33)
[2017-01-09] MEDS: ALBUTEROL FS 2.5 MG/3 ML VIAL.NEB NEB SCH ×6 (03:40→22:33)
[2017-01-09] MEDS: hydrALAZINE HCL 25 MG TABLET PO SCH ×3 (04:06→21:23)
[2017-01-09] MEDS: LORAZEPAM 1 MG TABLET PO PRN ×2 (04:17→20:22)
--- NOTE | 2017-01-09 06:27 | NUR ---
MS RN CLOSING NOTES PATIENT COMFORTABLY ASLEEP AND EASILY AWAKEN, HEAD OF BED ELEVATED FOR BETTER LUNG EXPANSION.IV SITE NO S/S OF INFILTRATED, ON TRACH DELIVERING COOL AEROSOL 97% BREATHING TREATMENT TOLERATED WELL. PATIENT DENIES PAIN AT THIS TIME. RESPIRATIONS EVEN AND UNLABORED. NO S/S OF ACUTE DISTRESS, NO SOB, AFEBRILE, ALL NURSING CARE NEEDS PROVIDED AND RENDERED, KEPT CLEAN AND DRY AND COMFORTABLE, GOOD SKIN CARE PROVIDED. ALL DUE MEDS WAS GIVEN TOLERATED. FREQUENT VISUAL CHECK DONE FOR SAFETY EVERY 2 HOURS. SAFE HAZARD FREE ENVIRONMENT PROVIDED. CALL LIGHT WITHIN EASY TO REACH, ON LOW BED AT ALL TIMES TO ENSURE SAFETY, WILL ENDORSE TO THE NEXT SHIFT CONTINUE PLAN OF CARE.
--- NOTE | 2017-01-09 07:44 | NUR ---
MS RN OPEN NOTES RECEIVED REPORT FROM ASSEMBLER GOLF WOOD HEAD NURSE. PATIENT IS SITTING AT THE EDGE OF THE BED. SITTER 1:1 WITH PATIENT. IV SITE IS PATENT AND INTACT WITH NO SIGNS AND SYMPTOMS OF INFILTRATED. ON TRACH DELIVERING COOL AEROSOL 99%. PATIENT PAIN LEVEL IS 8/10. WILL ADMINISTER SOON eMAR ALLOW. RESPIRATIONS EVEN AND UNLABORED. NO SIGNS AND SYMPTOMS OF ACUTE DISTRESS AND NO SOB. HEMODIALYSIS TODAY ON AM. WILL CONTINUE TO MONITOR AND ASSESS PATIENT THROUGH OUT MY SHIFT
[2017-01-09 08:00] VITALS: BP 162/102
[2017-01-09] MEDS: METOPROLOL TARTRATE 25 MG TABLET PO SCH ×3 (09:00→17:00)
[2017-01-09] MEDS: AMIODARONE HCL 200 MG TABLET PO SCH (09:00)
[2017-01-09] MEDS: AMLODIPINE BESYLATE 5 MG TABLET PO SCH ×2 (09:00→17:00)
--- NOTE | 2017-01-09 09:25 | NUR ---
PENDING DIALYSIS. BLOOD PRESSURE MEDS HELD.
[2017-01-09] MEDS: PANTOPRAZOLE 40 MG TABLET.DR PO SCH (09:41)
[2017-01-09] MEDS: FOLIC ACID 1 MG TABLET PO SCH (09:41)
[2017-01-09] MEDS: CALCIUM ACETATE 667 MG TABLET PO SCH ×3 (09:41→17:00)
[2017-01-09] MEDS: PHENYTOIN EXTENDED RELEASE 100 MG CAPSULE PO SCH ×2 (09:41→17:00)
[2017-01-09] MEDS: LACTOBACILLUS RHAMNOSUS GG 1 EACH CAP.SPRINK PO SCH ×2 (09:41→17:00)
[2017-01-09] MEDS: ASPIRIN 325 MG TABLET PO SCH (09:41)
[2017-01-09] MEDS: MUPIROCIN OINT 2% 22 GM TUBE SCH ×2 (09:43→21:22)
[2017-01-09] MEDS: HEPARIN SODIUM, PORCINE 5000 UNITS/1 ML VIAL SQ SCH ×2 (09:44→21:24)
[2017-01-09] MEDS: LEVETIRACETAM (250 MG) 250 MG TABLET PO SCH ×3 (09:50→17:00)
[2017-01-09] MEDS: FLUTICASONE/VILANTEROL 1 EACH BLST.W.DEV IH SCH (09:50)
[2017-01-09] MEDS: LEVOFLOXACIN (250MG) 250 MG TABLET PO SCH (12:15)
--- NOTE | 2017-01-09 12:59 | NUR ---
DR DAVE AT BEDSIDE. DCs SITTER
[2017-01-09 16:00] VITALS: BP 126/68
--- NOTE | 2017-01-09 16:00 | NUR ---
DIALYSIS NURSE AT BEDSIDE TO START DIALYSIS. VANCOMYCIN TO BE ADMINISTERED AFTER DIALYSIS
--- NOTE | 2017-01-09 17:00 | NUR ---
PATIENT IS HAVING DIALYSIS.. HELD 1700 MEDS.
--- NOTE | 2017-01-09 18:58 | NUR ---
RN CLOSING NOTES PATIENT IS IN BED. DIALYSIS IS ABOUT TO BE FINISHED. PATIENT IS ALERT AND ORIENTED. TRACH WITH COOL AEROSOL AT 8LPM AND 35% OXYGEN. PAIN LEVEL 8-10 MANAGED BY DILAUDID, BENADRYL AND NORCO. NO SIGNS AND SYMPTOMS OF DISTRESS. BREATHING IS UNLABORED AND EVEN. PATIENT REMOVING INNER CANNULA INDEPENDENTLY, PATIENT ADVISED NOT TO DO SO BUT UNCOOPERATIVE. SITTER 1:1 FOR SAFETY AT BEDSIDE. PATIENT KEPT CLEAN AND ALL NEEDS ANTICIPATED. LEFT UPPER MIDLINE INTACT AND PATENT. LEFT ARM AV SHUNT. WILL ENDORSE TO CAR RACER NURSE.
--- NOTE | 2017-01-09 19:02 | NUR ---
MS DOMINGUEZ NOTES PT RECEIVED IN W/C, IV SITE INTACT WITH NO S/S OF INFILTRATION NOTED. NO S/S OF RESPIRATORY DISTRESS OR SOB. SAFE ENVIRONMENT PROVIDED FREE OF CLUTTERS .BED IN LOCKED, LOW POSITION. CALL LIGHT WITHIN EASY REACH. WILL CONTINUE TO MONITOR PT. Addendum: 01/09/17 at 2250 by NIC WHITTAKER RN ADDENDUM: MISTAKEN ENTRY: PATIENT WAS RECEIVED LYING IN THE BED.
[2017-01-09] MEDS ORDERED: IPRATROPIUM NEB FS 0.5 MG/2.5 ML AMPUL.NEB ONE (19:15)
[2017-01-09] MEDS ORDERED: ALBUTEROL FS 2.5 MG/3 ML VIAL.NEB ONE (19:15)
[2017-01-09 20:00] VITALS: BP 162/94
[2017-01-09] MEDS: VANCOMYCIN 500 MG in IV D5W 100 ML IV PRN (20:23)
[2017-01-09] MEDS: ZOLPIDEM TARTRATE 5 MG TABLET PO SCH (21:23)
[2017-01-09] MEDS: ATORVASTATIN 10 MG TABLET PO SCH (21:24)
--- NOTE | 2017-01-09 21:47 | NUR ---
MS ANGELICA JUNG VANCOMYCIN ATB IV WAS GIVEN 500 MG PER PROTOCOL S/P HEMODIALYSIS Addendum: 01/09/17 at 214 by NIC WHITTAKER RN WAS GIVEN AT 2022
[2017-01-10] MEDS: HYDROMORPHONE 1 MG/1 ML DISP.SYRIN IV PRN ×3 (02:22→15:07)
[2017-01-10] MEDS: diphenhydrAMINE HCL 50 MG/ML VIAL IV PRN ×2 (02:29→13:23)
[2017-01-10] MEDS: ALBUTEROL FS 2.5 MG/3 ML VIAL.NEB NEB SCH ×3 (03:39→11:46)
[2017-01-10] MEDS: IPRATROPIUM NEB FS 0.5 MG/2.5 ML AMPUL.NEB NEB SCH ×3 (03:39→11:56)
[2017-01-10] MEDS: LORAZEPAM 1 MG TABLET PO PRN ×2 (05:17→13:19)
[2017-01-10] MEDS: hydrALAZINE HCL 25 MG TABLET PO SCH ×2 (05:17→12:39)
--- NOTE | 2017-01-10 06:27 | NUR ---
MS RN CLOSING NOTES PATIENT COMFORTABLY ASLEEP AND EASILY AWAKEN, HEAD OF BED ELEVATED FOR BETTER LUNG EXPANSION. PT ON TRACH WITH COOL AEROSOL AT 8LPM AND 35% OXYGEN. SITTER 1:1 FOR SAFETY AT BEDSIDE. RIGHT UPPER MIDLINE INTACT AND PATENT. BREATHING TREATMENT TOLERATED WELL. PAIN LEVEL 8-10 MANAGED BY DILAUDID, BENADRYL, LEFT ARM AV SHUNT NO S/S OF BLEEDING. RESPIRATIONS EVEN AND UNLABORED. SUCTIONED PRN, NO S/S OF ACUTE DISTRESS, NO SOB, AFEBRILE, ALL NURSING CARE NEEDS PROVIDED AND RENDERED, KEPT CLEAN AND DRY AND COMFORTABLE, GOOD SKIN CARE PROVIDED. ALL DUE MEDS WAS GIVEN TOLERATED. FREQUENT VISUAL CHECK DONE FOR SAFETY EVERY 2 HOURS. SAFE HAZARD FREE ENVIRONMENT PROVIDED. CALL LIGHT WITHIN EASY TO REACH, ON LOW BED AT ALL TIMES TO ENSURE SAFETY, WILL ENDORSE TO THE NEXT AM SHIFT CONTINUE PLAN OF CARE.
[2017-01-10] MEDS ORDERED: ALBUTEROL FS 2.5 MG/3 ML VIAL.NEB ONE ×2 (06:57→11:52)
[2017-01-10] MEDS ORDERED: IPRATROPIUM NEB FS 0.5 MG/2.5 ML AMPUL.NEB ONE (06:57)
--- NOTE | 2017-01-10 07:22 | NUR ---
MS/RN OPENING NOTES PT RECEIVED AWAKE AND SITTING ON HIS BED WITH SITTER AT BEDSIDE. ALERT AND ORIENTED X2-3, NO C/O PAIN OR DISCOMFORTS AT THIS TIME. ON TRACH TOREY #6 WITH COOL AEROSOL 8LPM AND 35%FI02, TOLERATING WITH NO SOB NOTED. RIGHT UPPER ARM MIDLINE PATENT AND INTACT. LEFT ARM AV SHUNT WITH POSITIVE BRUIT SOUNDS AND NO SIGNS OF BLEEDING. BED IN LOWEST POSITION AND LOCKED. CALL LIGHT WITHIN REACH OF PT. WILL MAINTAIN ALL SAFETY MEASURES AND WILL CONTINUE TO MONITOR PT ACCORDINGLY.
[2017-01-10 07:27] LABS: CREATININE 6.7 mg/dL (0.6-1.3); MAGNESIUM 1.9 mg/dL (1.8-2.4); POTASSIUM 4.5 mmol/L (3.5-5.1)
[2017-01-10 08:00] VITALS: BP 143/89
[2017-01-10] MEDS: LACTOBACILLUS RHAMNOSUS GG 1 EACH CAP.SPRINK PO SCH (08:31)
[2017-01-10] MEDS: ASPIRIN 325 MG TABLET PO SCH (08:31)
[2017-01-10] MEDS: PHENYTOIN EXTENDED RELEASE 100 MG CAPSULE PO SCH (08:31)
[2017-01-10] MEDS: CALCIUM ACETATE 667 MG TABLET PO SCH ×2 (08:31→12:37)
[2017-01-10] MEDS: FOLIC ACID 1 MG TABLET PO SCH (08:31)
[2017-01-10] MEDS: PANTOPRAZOLE 40 MG TABLET.DR PO SCH (08:31)
[2017-01-10] MEDS: AMLODIPINE BESYLATE 5 MG TABLET PO SCH (08:32)
[2017-01-10] MEDS: LEVETIRACETAM (250 MG) 250 MG TABLET PO SCH ×2 (08:32→12:37)
[2017-01-10] MEDS: AMIODARONE HCL 200 MG TABLET PO SCH (08:32)
[2017-01-10] MEDS: METOPROLOL TARTRATE 25 MG TABLET PO SCH ×2 (08:33→12:39)
[2017-01-10 09:07] LABS: BASOPHILS % (AUTO) 0.5 % (0.0-2.0); EOSINOPHILS # (AUTO) 0.8 /CMM (0.0-0.7); EOSINOPHILS % (AUTO) 9.5 % (0.0-6.0); HEMATOCRIT 25 % (39-51); HEMOGLOBIN 8.1 g/dL (13.5-17.5); LYMPHOCYTES # (AUTO) 1.1 /CMM (0.8-4.8); LYMPHOCYTES % (AUTO) 14.1 % (20.0-44.0); MEAN CORPUSCULAR HEMOGLOBIN 32 PG (26.0-33.0); MEAN CORPUSCULAR HGB CONC 33 g/dl (31.0-36.0); MEAN CORPUSCULAR VOLUME 97 fL (80-96); MONOCYTES # (AUTO) 0.8 /CMM (0.1-1.30); MONOCYTES % (AUTO) 10.1 % (2.0-12.0); NEUTROPHILS # (AUTO) 5.3 /CMM (1.8-8.9); NEUTROPHILS % (AUTO) 65.8 % (43.0-81.0); PLATELET COUNT (AUTO) 165 /CMM (150-450); RDW COEFFICIENT OF VARIATION 18.1 (11.5-15.0); RED BLOOD CELL COUNT(AUTO) 2.57 MIL/uL (4.5-6.0); WHITE BLOOD COUNT (AUTO) 8.1 K/uL (4.3-11.0)
[2017-01-10] MEDS: FLUTICASONE/VILANTEROL 1 EACH BLST.W.DEV IH SCH (09:22)
[2017-01-10] MEDS: MUPIROCIN OINT 2% 22 GM TUBE SCH (09:23)
[2017-01-10] MEDS: HEPARIN SODIUM, PORCINE 5000 UNITS/1 ML VIAL SQ SCH (09:24)
[2017-01-10] MEDS ORDERED: VANC1PLA9 IV (10:52)
[2017-01-10] MEDS ORDERED: EPOETIN ALFA (10,000 UNIT) 10,000 UNIT/ML VIAL IV ONE (12:00)
[2017-01-10] MEDS: LEVOFLOXACIN (250MG) 250 MG TABLET PO SCH (12:37)
[2017-01-10 12:39] VITALS: BP 111/63
[2017-01-10] MEDS ORDERED: ACETAMINOPHEN 325 MG TABLET PO PRN (13:30)
--- NOTE | 2017-01-10 14:29 | NUR ---
RN NOTES PT FOR [facility], REPORT OF PT'S CURRENT STATUS GIVEN TO Roselyn ROTHMAN LVN. ALSO INFORMED OF PT'S DISCHARGE.
--- NOTE | 2017-01-10 15:11 | NUR ---
RN NOTES PATIENT DIDN'T GET HIS EPOGEN 10,000U TODAY, PHARMACIST AWARE. CALLED [facility] AND INFORMED PREETI JAMES THAT PT DIDN'T RECEIVED IT.
--- NOTE | 2017-01-10 15:33 | NUR ---
MS HEAD UP OPERATOR HELPER NOTES PATIENT DISCHARGE TO [facility] IN STABLE CONDITION. HE LEFT UNIT AT 1530H VIA GURNEY AWAKE, ALERT AND ORIENTED X3 ACCOMPANIED BY 2 EMT'S FROM MED RESPONSE. PT ON TRACH COOL AEROSOL AT 8LPM 35% FI02, NO SIGNS OF SOB NOTED. V/S CHECKED AND RECORDED. PHOTOS OF SKIN TAKEN AND FILED IN HIS CHART. PT HAS NO BELONGINGS WHEN HE WAS ADMITTED, BELONGINGS CHECKLIST SIGNED. HEALTH TEACHINGS GIVEN AND VERBALIZED UNDERSTANDING. MD AND CHARGE NURSE AWARE OF DISCHARGE.
[2017-01-10] MEDS ORDERED: METOPROLOL TARTRATE 25 MG TABLET PO SCH (17:00)
[2017-01-10] MEDS ORDERED: HEPARIN SODIUM, PORCINE 5000 UNITS/1 ML VIAL SQ SCH (21:00)
== END 2017-01-10 15:28 | DRG 871 ==
LOC: ER 12:44 → ICU 15:04 → MED 01-04 13:15 → TELE 01-04 15:05 → MED 01-05 08:45
PROVIDERS: ADMIT Internal Medicine; ATTEND Internal Medicine
PROC: 5A1935Z Respiratory Ventilation, Less than 24 Consecutive Hours (ICD-10-PCS; principal; 2017-01-02)
PROC: 5A1D60Z (ICD-10-PCS; 2017-01-02)
PROC: 05H533Z Insertion of Infusion Device into Right Subclavian Vein, Percutaneous Approach (ICD-10-PCS; 2017-01-07)
DX: A41.9 Sepsis, unspecified organism (principal); J69.0 Pneumonitis due to inhalation of food and vomit; N18.6 End stage renal disease; J96.21 Acute and chronic respiratory failure with hypoxia; J96.22 Acute and chronic respiratory failure with hypercapnia; I50.33 Acute on chronic diastolic (congestive) heart failure; G92 Toxic encephalopathy; J15.1 Pneumonia due to Pseudomonas; E44.0 Moderate protein-calorie malnutrition; I31.3 Pericardial effusion (noninflammatory); Z99.11 Dependence on respirator [ventilator] status; I13.2 Hypertensive heart and chronic kidney disease with heart failure and with stage 5 chronic kidney disease, or end stage renal disease; I50.1 Left ventricular failure, unspecified; J44.0 Chronic obstructive pulmonary disease with (acute) lower respiratory infection; L03.116 Cellulitis of left lower limb; D63.8 Anemia in other chronic diseases classified elsewhere; D69.6 Thrombocytopenia, unspecified; E11.22 Type 2 diabetes mellitus with diabetic chronic kidney disease; E66.01 Morbid (severe) obesity due to excess calories; K21.9 Gastro-esophageal reflux disease without esophagitis; Z86.73 Personal history of transient ischemic attack (TIA), and cerebral infarction without residual deficits; Z90.49 Acquired absence of other specified parts of digestive tract; Z93.0 Tracheostomy status; Z99.2 Dependence on renal dialysis; I48.91 Unspecified atrial fibrillation; G89.4 Chronic pain syndrome; E88.09 Other disorders of plasma-protein metabolism, not elsewhere classified; G40.909 Epilepsy, unspecified, not intractable, without status epilepticus; Z22.322 Carrier or suspected carrier of Methicillin resistant Staphylococcus aureus; S20.211A Contusion of right front wall of thorax, initial encounter; S50.11XA Contusion of right forearm, initial encounter; S30.1XXA Contusion of abdominal wall, initial encounter; X58.XXXA Exposure to other specified factors, initial encounter; Y93.9 Activity, unspecified; Y92.129 Unspecified place in nursing home as the place of occurrence of the external cause; B95.7 Other staphylococcus as the cause of diseases classified elsewhere; Z79.899 Other long term (current) drug therapy; Z88.5 Allergy status to narcotic agent; R65.20 Severe sepsis without septic shock
CPT/HCPCS: 31720; 36415; 36600; 70450-TC; 71010-TC; 74000-TC; 80048-TC; 80053-TC; 80076-TC; 80185-TC; 80202-TC; 82140-TC; 82553-TC; 82803-TC; 83540-TC; 83605-TC; 83735-TC; 84100-TC; 84484-TC; 85025-TC; 85610-TC; 85730-TC; 87040-TC; 87070-TC; 87081-TC; 87086-TC; 87186-TC; 90935-TC; 92526; 92611-TC; 93307-TC; 93970-TC; 94002-TC; 94003-TC; 94640-TC; 94664-TC; 94799-TC; 97001-TC; 97110-TC; 97116-TC; 97530-TC; 99082-TC; A4606; A4623; A6402; J0885; J1165; J1170; J1200; J1644; J2543; J3370; J3475; J3480; J7050; J7060; Z7610

== ENCOUNTER 2017-01-24 11:19 | Inpatient (IN) | payer BC, MEDICAID ==
[~2017-01-24] VITALS: Ht 162.6 cm; Wt 99.8 kg
[~2017-01-24 11:19] MED LIST changes: +VANC1PLA9 IV
--- NOTE | 2017-01-24 11:20 | NUR ---
CECELIA FROM BOARD AND CARE C/O COUGHING OUT BLOOD THIS AM. AWAITING MD ORDER
--- NOTE | 2017-01-24 12:24 | NUR ---
BRE AT BEDSIDE FOR EVAL
[2017-01-24] MEDS ORDERED: HYDROCODONE/APAP 5/325MG 1 EACH TABLET ONE (12:50)
--- NOTE | 2017-01-24 12:53 | NUR ---
ISAÍASA TECH AT BEDSIDE FOR BLOOD DRAW
--- NOTE | 2017-01-24 12:57 | NUR ---
JIG FILLER AT BEDSIDE FOR EVAL
[2017-01-24 12:59] LABS: BASOPHILS % (AUTO) 0.4 % (0.0-2.0); EOSINOPHILS # (AUTO) 0.9 /CMM (0.0-0.7); EOSINOPHILS % (AUTO) 10.2 % (0.0-6.0); HEMATOCRIT 28 % (39-51); HEMOGLOBIN 9.3 g/dL (13.5-17.5); LYMPHOCYTES # (AUTO) 1.1 /CMM (0.8-4.8); LYMPHOCYTES % (AUTO) 13.1 % (20.0-44.0); MEAN CORPUSCULAR HEMOGLOBIN 32 PG (26.0-33.0); MEAN CORPUSCULAR HGB CONC 33 g/dl (31.0-36.0); MEAN CORPUSCULAR VOLUME 97 fL (80-96); MONOCYTES # (AUTO) 0.7 /CMM (0.1-1.30); MONOCYTES % (AUTO) 7.5 % (2.0-12.0); NEUTROPHILS % (AUTO) 68.8 % (43.0-81.0); PLATELET COUNT (AUTO) 172 /CMM (150-450); RDW COEFFICIENT OF VARIATION 17.3 (11.5-15.0); WHITE BLOOD COUNT (AUTO) 8.7 K/uL (4.3-11.0)
[2017-01-24] MEDS ORDERED: HYDROCODONE/APAP 5/325MG 1 EACH TABLET PO ONE (13:00)
[2017-01-24 13:12] LABS: CALCIUM, SERUM 8.6 mg/dL (8.5-10.1); POTASSIUM 3.9 mmol/L (3.5-5.1)
[2017-01-24 13:25] LABS: CREATININE 7.8 mg/dL (0.6-1.3)
[2017-01-24] MEDS ORDERED: diphenhydrAMINE HCL 25 MG CAPSULE ONE ×2 (13:27→14:52)
--- NOTE | 2017-01-24 13:31 | NUR ---
VERBAL ORDER BY BRE SMITH PT GIVEN BENADRYL 25 MG X1 PO
--- NOTE | 2017-01-24 13:52 | NUR ---
PAGED MARILOU OSORIO DNP FOR PANEL ADMISSION
--- NOTE | 2017-01-24 14:10 | NUR ---
PAGED NURSING DENTURE MODEL MAKER FOR DENI BED
[2017-01-24] MEDS ORDERED: DIPHENHYDRAMINE HCL 12.5 MG/5 ML UDC PO ONE (14:30)
[2017-01-24] MEDS ORDERED: AMIO200T2 PO (15:01)
[2017-01-24] MEDS ORDERED: ASPI325T2 PO (15:01)
[2017-01-24] MEDS ORDERED: HYDROCODONE/APAP 5/325MG 1 EACH TABLET PO PRN (16:30)
[2017-01-24] MEDS ORDERED: LIDOCAINE 5% (PATCH) 1 EA PATCH TP SCH ×2 (16:30)
--- NOTE | 2017-01-24 16:40 | NUR ---
GAVE REPORT TO SATYA DOMINGUEZ ADMITTING DX SOB MARILOU OSORIO ADMITTING TRASNFER VIA ACLS PROTOCOL
[2017-01-24 17:00] VITALS: BP 129/94
--- NOTE | 2017-01-24 17:00 | NUR ---
RN INITIAL NOTE PATIENT RECEIVED FROM ER. ALERT AND ORIENTED. ABLE TO MAKE NEEDS KNOWN. PATIENT HAS TRACH SHILEY #6 ON 5L OXYGEN WITH FI02-28%. SKIN IS WARM AND DRY TO TOUCH. NO IV SITE AT THIS TIME. CALLED RT FOR DIFFICULTY BREATHING. CALLED MD FOR ELEVATED BP. PT IS AGITATED TRYING TO GET OUT OF BED. SITTER AT BEDSIDE. MIDLINE INSERTION ORDERED. WILL MONITOR CLOSELY
--- NOTE | 2017-01-24 17:25 | NUR ---
RT PT APPEARED TO HAVE SOB WITH INCREASED WOB. SX WAS APPLIED AND WAS UNABLE TO FULLY PASS THE CATHETER. INNER CANNULA WAS TAKEN OUT AND PT STILL HAD SOB AND INCREASED WOB. CHARGE NURSE AND RN WAS NOTIFIED AND AWARE OF SITUATION. EMERGENCY TRACH CHANGE WAS DONE BY RT WITH NEW SHILEY 6 CUFFED. TRACH CHANGE WAS DONE WITH NO COMPLICATIONS. EQUAL BILATERAL BREATHE SOUNDS AND CHEST RISE. WAS ABLE TO PASS SX CATHETER COMPLETELY. PT APPEARS TO HAVE NOT RESPIRATORY DISTRESS AT THIS TIME, WILL CONTINUE TO MONITOR. Addendum: 01/24/17 at 1823 by COLUMBA WRIGHT RT Amended: Links added.
[2017-01-24] MEDS: PHENYTOIN EXTENDED RELEASE 100 MG CAPSULE PO SCH (17:33)
[2017-01-24] MEDS: CALCIUM ACETATE 667 MG TABLET PO SCH (17:33)
[2017-01-24] MEDS: LEVETIRACETAM (250 MG) 250 MG TABLET PO SCH (17:33)
[2017-01-24] MEDS: METOPROLOL TARTRATE 25 MG TABLET PO SCH (17:34)
[2017-01-24] MEDS: AMLODIPINE BESYLATE 5 MG TABLET PO SCH (17:34)
[2017-01-24] MEDS: risperiDONE 1 MG TABLET PO SCH (17:34)
--- NOTE | 2017-01-24 18:59 | NUR ---
RN NOTE MARILOU OSORIO MD HERE INSERTING PATIENTS IV LINE AT BEDSIDE.
--- NOTE | 2017-01-24 19:20 | NUR ---
RN CLOSING NOTE ALL MD ORDERS CARRIED OUT. PATIENT KEPT CLEAN AND DRY. SAFETY PRECAUTIONS IN PLACE AT ALL TIMES. REPORT WILL BE GIVEN TO PM RN FOR AGATHA.
[2017-01-24] MEDS: ALBUTEROL FS 2.5 MG/3 ML VIAL.NEB NEB SCH ×2 (19:26→23:04)
[2017-01-24] MEDS: IPRATROPIUM NEB FS 0.5 MG/2.5 ML AMPUL.NEB NEB SCH ×2 (19:26→23:04)
[2017-01-24] MEDS ORDERED: HYDROMORPHONE 1 MG/1 ML DISP.SYRIN ONE ×2 (19:47→23:56)
--- NOTE | 2017-01-24 19:50 | NUR ---
RN NOTES RECEIVED PT AWAKE ON BED WITH TRACH SHILEY 6 WITH C/A 5 LITERS FIO2 28% TOLERATED WELL NO ACUTE RESP DISTRESS. SITTER AT BEDSIDE. PT IS AFEBRILE. NO EPISODE OF HEMOPTYSIS. DR OSORIO INSERTING MIDLINE ON FERNANDO. PT IS AOX3 VERBALIZING OF PAIN. ST 100'S IN TELE MONITOR. AMBULATE AND USED URINAL FOR BLADDER AND COMMODE FOR BOWEL. KEPT PT CLEAN AND COMFORTABLE ON BED. ENCOURAGED TO ELEVATE LEG WITH PILLOWS. WILL CONTINUE TO MONITOR.
[2017-01-24] MEDS: HYDROMORPHONE 1 MG/1 ML DISP.SYRIN IV PRN ×2 (19:53→23:58)
[2017-01-24 20:00] VITALS: BP 124/90
[2017-01-24] MEDS ORDERED: diphenhydrAMINE HCL 50 MG/ML VIAL ONE (20:00)
[2017-01-24] MEDS: diphenhydrAMINE HCL 50 MG/ML VIAL IV PRN (20:02)
[2017-01-24] MEDS: hydrALAZINE HCL 25 MG TABLET PO SCH (20:09)
[2017-01-24] MEDS: ATORVASTATIN 10 MG TABLET PO SCH (22:21)
[2017-01-24] MEDS: ZOLPIDEM TARTRATE 5 MG TABLET PO PRN (23:58)
[2017-01-25] VITALS: BP 150/98
[2017-01-25] MEDS ORDERED: diphenhydrAMINE HCL 50 MG/ML VIAL ONE (01:49)
[2017-01-25] MEDS: diphenhydrAMINE HCL 50 MG/ML VIAL IV PRN ×3 (01:54→15:04)
--- NOTE | 2017-01-25 02:00 | NUR ---
RN NOTE NOTED PT IS VERY ANXIOUS INSPITE OF GIVING PAIN MEDICINE AND AMBIEN 2 HOURS AGO. SITTER AT BEDSIDE ASSISTED THE PATIENT BUT PT IS VERY RESTLESS. EXPLAINED AND RE ORIENT ABOUT THE TIME, INEFFECTIVE NO SOB NOTED. ATIVAN PO AND BENADRYL IVP GIVEN ORDERED. WILL CONTINUE TO MONITOR
[2017-01-25] MEDS: IPRATROPIUM NEB FS 0.5 MG/2.5 ML AMPUL.NEB NEB SCH ×6 (02:53→23:07)
[2017-01-25] MEDS: ALBUTEROL FS 2.5 MG/3 ML VIAL.NEB NEB SCH ×6 (02:53→23:07)
[2017-01-25] MEDS ORDERED: HYDROMORPHONE 1 MG/1 ML DISP.SYRIN ONE (03:58)
[2017-01-25 04:00] VITALS: BP 161/104
[2017-01-25] MEDS: HYDROMORPHONE 1 MG/1 ML DISP.SYRIN IV PRN ×4 (04:06→18:01)
[2017-01-25] MEDS: hydrALAZINE HCL 25 MG TABLET PO SCH ×3 (04:52→21:44)
--- NOTE | 2017-01-25 06:33 | NUR ---
RN NOTES PT SLEEP FOR ABOUT 30 MINUTES THEN WOKE UP AND ASKED FOR PAIN MEDICINE AND BENADRYL MOST OF THE TIME. EDUCATED PATIENT REGARDING TIME/FREQUENCY OF THE MEDICINE. EFFECTIVE FOR AWHILE BUT EASILY FORGETS. PT IS RESTLESS, ANXIOUS WITH EPISODE OF NON COMPLIANT. PT MONITORED CLOSELY, NO EPISODE OF SOB SHOWS. KEPT PT CLEAN AND COMFORTABLE IN BED. 1:1 SITTER CONTINUE. WILL ENDORSED CONTINUITY OF CARE TO AM NURSE.
--- NOTE | 2017-01-25 07:00 | NUR ---
RN DENI INITIAL NOTE RECEIVED PT AWAKE IN CHAIR, A/O X4, ABLE TO MAKE NEEDS KNOWN, FOLLOWS COMMANDS, PT IS ON COOL AEROSOL 5L FIO2 28%, NO S/S OF RESP.DISTRESS OR SOB NOTED AT THIS TIME, PT IS ON TELE MONITOR SHOWING ST @ 119 BPM, NO S/S CHEST PAIN, PT IS C/O OF CHRONIC PAIN REQUESTING DILAUDID AND BENADRYL, INFORMED PT THAT HE CAN NOT RECEIVE MEDICATIONS TOGETHER AND FREQUENTLY, PT STILL WANTS BOTH MEDICATIONS, PT HAS FERNANDO MIDLINE, SL, C/D/I/PATENT, FLUSHING WELL, NO S/S OF INFECTION/ INFILTRATION NOTED AT THIS TIME, PT HAS 1:1 SITTER, PT IS AGITATED, PT IS CURRENTLY NPO D/T UPCOMING PROCEDURE. ALL SAFETY MEASURES IN PLACE AT ALL TIMES, CALL LIGHT WITHIN EASY REACH, WILL MONITOR PT CLOSELY FOR CHANGES
[2017-01-25 07:11] LABS: BASOPHILS % (AUTO) 0.4 % (0.0-2.0); EOSINOPHILS # (AUTO) 0.9 /CMM (0.0-0.7); EOSINOPHILS % (AUTO) 10.2 % (0.0-6.0); HEMATOCRIT 29 % (39-51); HEMOGLOBIN 9.8 g/dL (13.5-17.5); LYMPHOCYTES # (AUTO) 1.2 /CMM (0.8-4.8); MEAN CORPUSCULAR HEMOGLOBIN 33 PG (26.0-33.0); MEAN CORPUSCULAR HGB CONC 34 g/dl (31.0-36.0); MEAN CORPUSCULAR VOLUME 97 fL (80-96); MONOCYTES # (AUTO) 0.6 /CMM (0.1-1.30); MONOCYTES % (AUTO) 6.6 % (2.0-12.0); NEUTROPHILS # (AUTO) 6.3 /CMM (1.8-8.9); NEUTROPHILS % (AUTO) 69.8 % (43.0-81.0); PLATELET COUNT (AUTO) 184 /CMM (150-450); RDW COEFFICIENT OF VARIATION 18.1 (11.5-15.0); RED BLOOD CELL COUNT(AUTO) 3.03 MIL/uL (4.5-6.0)
[2017-01-25] MEDS: PANTOPRAZOLE 40 MG TABLET.DR PO SCH (07:30)
[2017-01-25 07:35] LABS: CALCIUM, SERUM 8.6 mg/dL (8.5-10.1); POTASSIUM 4.1 mmol/L (3.5-5.1)
[2017-01-25 07:47] LABS: CREATININE 8.7 mg/dL (0.6-1.3)
[2017-01-25 08:00] VITALS: BP 171/88
[2017-01-25] MEDS: CALCIUM ACETATE 667 MG TABLET PO SCH ×3 (08:00→17:24)
[2017-01-25] MEDS: FLUTICASONE/VILANTEROL 1 EACH BLST.W.DEV IH SCH (08:44)
[2017-01-25] MEDS: ASPIRIN 325 MG TABLET PO SCH (08:55)
[2017-01-25] MEDS: AMIODARONE HCL 200 MG TABLET PO SCH (08:58)
[2017-01-25] MEDS: METOPROLOL TARTRATE 25 MG TABLET PO SCH ×3 (08:59→16:36)
[2017-01-25] MEDS: PHENYTOIN EXTENDED RELEASE 100 MG CAPSULE PO SCH ×2 (08:59→16:34)
[2017-01-25] MEDS: FOLIC ACID 1 MG TABLET PO SCH (08:59)
[2017-01-25] MEDS: LEVETIRACETAM (250 MG) 250 MG TABLET PO SCH ×3 (08:59→16:34)
[2017-01-25] MEDS: risperiDONE 1 MG TABLET PO SCH ×3 (09:00→16:34)
[2017-01-25] MEDS: AMLODIPINE BESYLATE 5 MG TABLET PO SCH ×2 (09:00→16:36)
[2017-01-25 09:25] LABS: EOSINOPHILS % (MANUAL) 15 % (0-4); LYMPHOCYTES % (MANUAL) 4 % (16-48); NEUTROPHILS % (MANUAL) 81 (42-76)
[2017-01-25] MEDS ORDERED: IOHEXOL-350 100 ML VIAL IV ONE (09:45)
--- NOTE | 2017-01-25 09:59 | NUR ---
CT PULMONARY ANGIOGRAM TO BE DONE JUST PRIOR TO DIALYSIS WHICH IS SCHEDULED FOR THE AFTERNOON. RN WILL CALL WHEN HD RN ARRIVES.
[2017-01-25 12:00] VITALS: BP 157/107
[2017-01-25 16:00] VITALS: BP 155/92
[2017-01-25] MEDS: LORAZEPAM 1 MG TABLET PO PRN (18:03)
--- NOTE | 2017-01-25 19:05 | NUR ---
RN OPENING NOTES REPORT RECEIVED FROM JENNIFER DOMINGUEZ. PATIENT A/A/O X3, ABLE TO MAKE NEEDS KNOWN. NO RESPIRATORY DISTRESS OR SOB NOTED. TRACH INTACT W/ COOL AEROSOL 5L, FI02 28%. ON TELE SINUS TACHY. RIGHT UPPER MIDLINE CDI AND FLUSHING WELL. DENIES ANY PAIN OR DISCOMFORT @ THIS TIME. SAFETY MEASURES IN PLACE. SIDE RAILS UP, BED LOCKED AND IN LOWEST POSITION, CALL LIGHT WITHIN REACH. SITTER @ BEDSIDE. WILL CONTINUE TO MONITOR.
--- NOTE | 2017-01-25 19:31 | NUR ---
DENI RN CLOSING NOTES PT REMAINED STABLE DURING SHIFT, ALL ORDERS CARRIED OUT, REPORT GIVEN TO PM RN FOR AGATHA
[2017-01-25 20:00] VITALS: BP 162/80
[2017-01-25] MEDS ORDERED: LIDOCAINE 5% (PATCH) 1 EA PATCH TP SCH (21:00)
[2017-01-25] MEDS: ATORVASTATIN 10 MG TABLET PO SCH (21:44)
[2017-01-25] MEDS: METOPROLOL TARTRATE 50 MG TABLET PO SCH (21:44)
[2017-01-26] VITALS: BP 146/82
[2017-01-26] MEDS: ZOLPIDEM TARTRATE 5 MG TABLET PO PRN (01:20)
--- NOTE | 2017-01-26 01:22 | NUR ---
PRN AMBIEN 5 MG PO GIVEN FOR INSOMNIA , PT IS TRYING TO PULL TRACH. WITH SITTER 1;1 , WILL INFORM PRIMARY NURSE FRIDA.
[2017-01-26] MEDS: IPRATROPIUM NEB FS 0.5 MG/2.5 ML AMPUL.NEB NEB SCH ×4 (03:18→14:32)
[2017-01-26] MEDS: ALBUTEROL FS 2.5 MG/3 ML VIAL.NEB NEB SCH ×4 (03:18→14:32)
[2017-01-26 04:00] VITALS: BP 141/80
[2017-01-26] MEDS: hydrALAZINE HCL 25 MG TABLET PO SCH ×2 (04:39→12:29)
[2017-01-26] MEDS: LORAZEPAM 1 MG TABLET PO PRN (05:30)
[2017-01-26 07:11] LABS: BASOPHILS % (AUTO) 0.4 % (0.0-2.0); EOSINOPHILS # (AUTO) 0.5 /CMM (0.0-0.7); EOSINOPHILS % (AUTO) 5.8 % (0.0-6.0); HEMATOCRIT 30 % (39-51); LYMPHOCYTES # (AUTO) 1.2 /CMM (0.8-4.8); LYMPHOCYTES % (AUTO) 13.6 % (20.0-44.0); MEAN CORPUSCULAR HEMOGLOBIN 33 PG (26.0-33.0); MEAN CORPUSCULAR HGB CONC 34 g/dl (31.0-36.0); MEAN CORPUSCULAR VOLUME 97 fL (80-96); MONOCYTES # (AUTO) 1.2 /CMM (0.1-1.30); MONOCYTES % (AUTO) 13.5 % (2.0-12.0); NEUTROPHILS # (AUTO) 5.8 /CMM (1.8-8.9); NEUTROPHILS % (AUTO) 66.7 % (43.0-81.0); PLATELET COUNT (AUTO) 127 /CMM (150-450); RDW COEFFICIENT OF VARIATION 18.1 (11.5-15.0); RED BLOOD CELL COUNT(AUTO) 3.09 MIL/uL (4.5-6.0); WHITE BLOOD COUNT (AUTO) 8.7 K/uL (4.3-11.0)
--- NOTE | 2017-01-26 07:22 | NUR ---
RN CLOSING NOTES PATIENT AWAKE IN BED W/ SOME RESTLESSNESS. NO ACUTE RESPIRATORY DISTRESS NOTED THROUGHOUT SHIFT. TELE SINUS RHYTHM IN THE 80S. IV SITE KEPT CLEAN AND DRY. ATIVAN ADMINISTERED X1 FOR ANXIETY BEHAVIOR. NO SIGNIFICANT CHANGES OVERNIGHT. WILL ENDORSE AGATHA TO AM NURSE.
[2017-01-26] MEDS: PANTOPRAZOLE 40 MG TABLET.DR PO SCH ×2 (07:30→09:26)
[2017-01-26 07:49] LABS: CALCIUM, SERUM 8.1 mg/dL (8.5-10.1); CREATININE 7.4 mg/dL (0.6-1.3); PHOSPHORUS 4.8 mg/dL (2.5-4.9); POTASSIUM 5.5 mmol/L (3.5-5.1)
[2017-01-26 08:00] VITALS: BP 123/92
[2017-01-26] MEDS: CALCIUM ACETATE 667 MG TABLET PO SCH ×3 (08:00→12:29)
--- NOTE | 2017-01-26 08:00 | NUR ---
TELE1/RN AM SHIFT INITIAL NOTES RECEIVED PT ASLEEP IN BED, AROUSEABLE, A/O X 3, NO ACUTE RESPIRATORY DISTRESS NOTED. PT COMPLAINT OF HIP PAIN RATED 9/10. PT IS TRACHED, INTACT ON COOL AEROSOL WITH 28% FIO2 WITH DIMINISHED LUNG SOUNDS, SATURATING @ 97%, ON TELE MONITORING WITH SINUS RHYTHM, HR 83. MIDLINE SITE FLUSHED, PATENT WITH NO S/S OF INFECTION, SL. SCHEDULED AM MEDS TO BE GIVEN. CL WITHIN REACHED, SAFETY MAINTAINED AND ISOLATION OBSERVED. ON GOING MONITORING.
[2017-01-26] MEDS: FLUTICASONE/VILANTEROL 1 EACH BLST.W.DEV IH SCH ×2 (08:49→09:24)
[2017-01-26] MEDS: risperiDONE 1 MG TABLET PO SCH ×3 (08:50→12:29)
[2017-01-26] MEDS: FOLIC ACID 1 MG TABLET PO SCH ×2 (08:50→09:25)
[2017-01-26] MEDS: AMIODARONE HCL 200 MG TABLET PO SCH ×2 (08:50→09:27)
[2017-01-26] MEDS: LEVETIRACETAM (250 MG) 250 MG TABLET PO SCH ×3 (08:50→12:29)
[2017-01-26] MEDS: ASPIRIN 325 MG TABLET PO SCH ×2 (08:50→09:25)
[2017-01-26] MEDS: PHENYTOIN EXTENDED RELEASE 100 MG CAPSULE PO SCH ×2 (08:50→09:26)
[2017-01-26] MEDS: AMLODIPINE BESYLATE 5 MG TABLET PO SCH ×2 (08:50→09:28)
[2017-01-26] MEDS: METOPROLOL TARTRATE 50 MG TABLET PO SCH ×2 (08:50→09:27)
[2017-01-26] MEDS: HYDROMORPHONE 1 MG/1 ML DISP.SYRIN IV PRN (09:28)
[2017-01-26 12:00] VITALS: BP 144/96
[2017-01-26 12:29] VITALS: BP 144/96
--- NOTE | 2017-01-26 12:54 | NUR ---
TELE1/RN ROUNDS - DR. OSORIO PT SEEN & EXAMINED BY DR. OSORIO, WITH ORDERS RECEIVED TO GIVE ONE TIME BENADRYL 50MG IVP ONCE AND DISCHARGE BACK TO SNF. ORDER NOTED AND CARRIED. MONITORING CONTINUED.
[2017-01-26] MEDS ORDERED: diphenhydrAMINE HCL 50 MG/ML VIAL IV ONE (13:00)
--- NOTE | 2017-01-26 15:10 | NUR ---
TELE1/RN REPORT - SNF REPORT GIVEN TO SNF ([facility]) SPOKE TO PREETI NICHOLAS. AWAITING FOR TRANSPORT SERVICE.
--- NOTE | 2017-01-26 15:56 | NUR ---
TELE1/CERTIFIED NURSING ATTENDANT - SNF DISCHARGE INSTRUCTIONS GIVEN TO PT, VERBALIZED UNDERSTANDING. DISCHARGE DOCUMENTS GIVEN TO TRANSPORT PERSONNEL, PERSONAL BELONGINGS RETURNED TO PT, INVENTORY LOG SIGNED OFF. IV SITE REMOVED, PRESSURE DRESSING APPLIED, NO S/S OF INFECTION. ID BAND REMOVED. PT LEFT UNIT VIA GURNEY IN STABLE CONDITION ACCOMPANIED BY TRANSPORT PERSONNEL.
== END 2017-01-26 15:40 | DRG 205 ==
LOC: ER 11:20 → TELE-TD 15:51 → TELE1 01-25 17:41
PROVIDERS: ADMIT Nurse Practitioner Acute Care; ATTEND Nurse Practitioner Acute Care
PROC: 05H533Z Insertion of Infusion Device into Right Subclavian Vein, Percutaneous Approach (ICD-10-PCS; principal; 2017-01-24)
PROC: B546ZZA Ultrasonography of Right Subclavian Vein, Guidance (ICD-10-PCS; 2017-01-24)
PROC: 5A1D00Z (ICD-10-PCS; 2017-01-24)
DX: J95.03 Malfunction of tracheostomy stoma (principal); N18.6 End stage renal disease; I13.2 Hypertensive heart and chronic kidney disease with heart failure and with stage 5 chronic kidney disease, or end stage renal disease; I50.32 Chronic diastolic (congestive) heart failure; R04.2 Hemoptysis; Z99.2 Dependence on renal dialysis; Z87.891 Personal history of nicotine dependence; Z86.73 Personal history of transient ischemic attack (TIA), and cerebral infarction without residual deficits; Z82.49 Family history of ischemic heart disease and other diseases of the circulatory system; Z79.899 Other long term (current) drug therapy; Z82.3 Family history of stroke; Z76.5 Malingerer [conscious simulation]; R07.81 Pleurodynia; Y92.092 Bedroom in other non-institutional residence as the place of occurrence of the external cause; G40.909 Epilepsy, unspecified, not intractable, without status epilepticus; I48.91 Unspecified atrial fibrillation; G89.4 Chronic pain syndrome; E66.9 Obesity, unspecified; D75.89 Other specified diseases of blood and blood-forming organs; D63.8 Anemia in other chronic diseases classified elsewhere; W01.0XXA Fall on same level from slipping, tripping and stumbling without subsequent striking against object, initial encounter; Z79.82 Long term (current) use of aspirin; K21.9 Gastro-esophageal reflux disease without esophagitis; I25.10 Atherosclerotic heart disease of native coronary artery without angina pectoris; Z88.5 Allergy status to narcotic agent; Z68.37 Body mass index [BMI] 37.0-37.9, adult
CPT/HCPCS: 31720; 36415; 71010-TC; 80048-TC; 82962-TC; 83735-TC; 84100-TC; 85025-TC; 87081-TC; 90935-TC; 94640-TC; 94799-TC; A4606; A4623; A6402; J1170; J1200; J7120; Q0163; Q9967; Z7610